=== PATIENT | female | born 1950 | race Caucasian/White ===

== ENCOUNTER 2016-12-10 22:17 | Inpatient (IN) | payer MEDICARE, OTHER ==
[~2016-12-10] VITALS: Ht 152.4 cm; Wt 63.9 kg
[2016-12-10] MEDS: SERTRALINE 100 MG TAB PO SCH (21:00)
[~2016-12-10 22:17] MED LIST: ASPI81TA85 PO; CALTCHW5 PO; CARV25TA PO; FISH100049 PO; HYDR12.55 PO; METF1000 PO; MOBI7.5T10 PO; PRIL20CA9 PO; SERT-138 PO; SIMV20TA2 PO; SIMVASTATIN 20 MG TAB PO SCH; SUCR1SS PO; VITA2000 PO; VITA500T53 PO
[2016-12-10] MEDS ORDERED: PANT40TA2 PO (22:49)
[2016-12-10 23:46] LABS: DIFF SLIDE NUMBER 362; MEAN CORPUSCULAR HEMOGLOBIN 28.7 pg (27.0-33.0); MEAN CORPUSCULAR HGB CONC 31.1 g/dl (32.0-36.5); MEAN CORPUSCULAR VOLUME 92.5 fl (80.0-96.0); RED CELL DISTRIBUTION WIDTH 14.8 % (11.5-14.5); WHITE BLOOD COUNT 1.4 K/mm3 (4.0-10.0)
[2016-12-11] VITALS (24 sets, daily range): BP systolic 77–109; BP diastolic 52–72
[2016-12-11 00:11] LABS: PLATELET COUNT, AUTOMATED 74 k/mm3 (150-450)
[2016-12-11 00:17] LABS: ALBUMIN 2.6 GM/DL (3.2-5.2); ALBUMIN/GLOBULIN RATIO 0.87 (1.00-1.93); BILIRUBIN,DIRECT 1.3 MG/DL (0.0-0.2); CREATININE FOR GFR 1.92 MG/DL (0.55-1.02); GLOMERULAR FILTRATION RATE 27.7 (>45); POTASSIUM SERUM 4.3 MEQ/L (3.5-5.1); THYROXINE (T4) 5.9 UG/DL (4.5-12.0); TOTAL PROTEIN 5.6 GM/DL (6.4-8.2)
[2016-12-11 00:23] LABS: BANDS 3 % (< 11); NUCLEATED RED BLOOD CELL 3 % (0-0)
[2016-12-11] MEDS ORDERED: NS 1,000 ML IV ONE (00:30)
[2016-12-11] MEDS ORDERED: VANCOMYCIN HCL 1,000 MG, VIAL MATE ADAPTER 1 EACH in D5W 250 ML IV ONE (00:45)
[2016-12-11] MEDS ORDERED: IMIPENEM/CILASTATIN 500 MG in D5W MINI-BAG PLUS 100 ML IV ONE (00:45)
--- NOTE | 2016-12-11 01:30 | REPUSA ---
CLINICAL HISTORY: Abdominal pain. TECHNIQUE: Multiple axial, sagittal and coronal CT images were obtained through the abdomen and pelvi s without administration of oral or IV contrast material. COMMENTS: Diffuse irregularity of the hepatic contour without mass or defect. There is no intra or extrahepatic biliary ductal dilatation. The spleen is normal. The gallbladder is surgically absent. The pancreas is of normal contour and attenuation characteristics. There is no evidence of adrenal mass. Left nephrolithiasis. The largest stone measures 6 mm. Calcified hepatic granulomas in the right hepatic lobe. 7.7x5.3 mm obstructing calculus of the left ureter at L4/L5 level. Moderate left hydroureteronephrosi s. Surgical changes of the stomach. There is no evidence for appendicitis. There is no bowel wall thickening. No evidence for small or la rge bowel obstruction. There is no evidence of abdominal ascites or lymphadenopathy. There is no evidence of intrinsic or extrinsic bladder mass. There is no pelvic ascites or lymphadeno jaun. Fluid-filled bowels. Uncomplicated colonic diverticulosis. Images of the lung bases show no evidence of pleural or parenchymal mass. There are no pleural effusi ons. Bilateral basilar atelectatic pulmonary changes. The bony structures are free of lytic or blastic lesions. Multilevel degenerative changes are seen in volving the thoracolumbar spine. Scattered calcifications are seen involving the aorta and major branches compatible with atherosclero sis. Fat containing umbilical hernia without incarceration. IMPRESSION: Left nephrolithiasis. Obstructing stone of the left ureter at L4/L5 level. Moderate left hydroureteronephrosis. Fat containing umbilical hernia without incarceration. Uncomplicated clonic diverticulosis. Prior cholecystectomy. Fluid-filled bowels. Findings are suggestive of ileus/enteritis. Thank you for your kind referral of this patient.
[2016-12-11] MEDS ORDERED: KETOROLAC 30 MG/ML VIAL (J1885) IV ONE (01:45)
[2016-12-11] MEDS ORDERED: NS 1,000 ML IV SCH ×3 (02:00→06:30)
[2016-12-11] MEDS ORDERED: POTA10CA PO (02:20)
[2016-12-11] MEDS ORDERED: BACITAB3 PO (02:20)
[2016-12-11] MEDS ORDERED: ASPI81TAEC PO (02:20)
[2016-12-11] MEDS ORDERED: CARV12.5 PO (02:20)
[2016-12-11] MEDS ORDERED: GAVICHW5 PO (02:20)
[2016-12-11] MEDS ORDERED: MAGN400T2 PO (02:20)
[2016-12-11] MEDS ORDERED: ACETAMINOPHEN TAB 650MG DOSE (2X325MG) PO PRN (02:30)
[2016-12-11] MEDS ORDERED: SODIUM CHLORIDE 0.9% 1000 ML IV ONE ×3 (03:30→08:15)
[2016-12-11] MEDS ORDERED: NOREPINEPHRINE BITARTRATE 16 MG in D5W 500 ML IV SCH ×2 (03:30→21:00)
[2016-12-11] MEDS ORDERED: NOREPINEPHRINE 4 MG/4 ML AMP As Ordered ONE ×2 (03:41→11:46)
[2016-12-11] MEDS ORDERED: PERCOCET 5MG/325MG TAB PO PRN (04:00)
[2016-12-11] MEDS ORDERED: ONDANSETRON 4MG/2ML VIAL (J2405) IV PRN ×2 (04:00→10:30)
[2016-12-11] MEDS: NOREPINEPHRINE BITARTRATE 8 MG in D5W 500 ML IV SCH ×3 (04:10→04:23)
[2016-12-11] MEDS: VASOPRESSIN INJ 20 UNITS in NS 500 ML IV SCH ×2 (05:14→05:45)
--- NOTE | 2016-12-11 05:14 | PHACANCOPD ---
PHARMACY VANCOMYCIN DOSING Pt Demographics Demographics Patient Age:66 , Weight: , Gender: female Adjusted Body Weight Date: 12/11/16, Adjusted Body Weight: [52] Kg Events Past 24 Hours Events Past 24 Hours: NO: Change in CrCl, Dialysis, Diuretic Therapy, Elevation in WBC, Fever, Other, Pending Diagnostics, Pending Procedures Vancomycin Vancomycin Target Ranges: 15-20 mcg/ml Vancomycin Load Y/N: No Load Dose Date Time Vancomycin Load Dose: Date: Time: Vancomycin Dose Date: 12/11/16. Current Vancomycin Dose: [1000MG Q24H] Intermittent Dosing?: No Labs Labs Item Value Date Time White Blood Count 1.4 K/mm3 L 12/10/162326 Creatinine 1.92 MG/DL H 12/10/16 232 Vital Signs Label Value Date Time Patient Temperature 100.6 degrees F 12/11/16 0030 Micro Microbiology 12/10/16 Urine Culture, Received Pending Creatinine Clearance Date:12/11/16. Creatinine Clearance: [22]. Pending Labs Trough 03 @0500 Assessment and Plan Maintaining Current Dose?: Yes Reason for dose change: No Dose Change Pharmacist Note Pharmacist Note Date: 12/11/16. Pharmacist note:Dosed at 1000mg q24h with a trough scheduled for 0319 @0500. Will continue to monitor and make adjustments as needed. [facility] Dec 11, 2016 05:14
--- NOTE | 2016-12-11 05:49 | HPEPDOC ---
General Date of Admission Dec 11, 2016 at 02:10 Primary Care Physician: Jailene Arshad Attending Physician: MIRA BERG MD Chief Complaint The patient is a 66-year-old female admitted with a reason for visit of Acute Unilateral Obstructive Uropathy, Calculus Of. Source: Patient, RN notes reviewed, Old records Exam Limitations: No limitations Timing/Duration: 24 hours (started 12/10/2016) Severity: Severe Associated Symptoms: Fever, Chills, Loss of appetite, Nausea, Vomiting History of Present Illness Ms. Kent is a 66-year-old female who presents to [facility]'s emergency Department with left-sided abdominal pain. She is accompanied in the emergency department by her . Past medical history significant for hypertension, gastroesophageal reflux disease, anxiety for/depression, dyslipidemia, history of gastric adenocarcinoma , diverticulosis, history of hiatal hernia, esophagitis, nonbleeding internal hemorrhoids, anemia, history of recurrent Clostridium difficile infections, colonic polyps, history of nephrolithiasis. Patient states that the pain started morning after she woke up. She describes the pain as dull, achy, and constant. She states the pain is on the left side of her abdomen and it goes straight to her back. Patient remained in bed most all day and the pain subsided some. She got back out of bed and the pain returned. She states that over the last couple days fluid intake has been decreased as well as her food intake. She states that she is nauseous, has been vomiting which is nonbloody, and has had 2 episodes of diarrhea since this started. States the diarrhea is nonbloody, nonmucoid, and started out loose , but has proceeded to watery diarrhea. She states that she would alternate between feeling hot and diaphoretic and then proceed to teeth rattling chills. She has noticed some nasal drainage and some neck pain (although she notes that this is not new). Patient denies acute changes to vision and her hearing (including blurry vision , diplopia, acute transient vision loss, tinnitus, acute hearing loss), headache , postnasal drainage, sinus pain or pressure, chest pain, shortness of breath, paroxysmal nocturnal dyspnea, joint pain, muscle pain, numbness and/or tingling , swelling, changes to her urinary habits (urinary frequency, urinary urgency, dysuria, hematuria), melena, hematochezia, skin rashes and/or lesions, skin color changes. Hospitalist service was consulted and patient was subsequently admitted for further medical management. Home Medications Scheduled Aspirin (Aspirin EC) 81 Mg Tabec 81 MG PO QHS (Reported) Carvedilol (Carvedilol) 12.5 Mg Tab 12.5 MG PO BID (Reported) Cholecalciferol (Vitamin D3) 2,000 Unit Cap 2,000 UNIT PO DAILY (Reported) Lactobacillus Acidophilus (Bacid) 1 Tab Tab 1 TAB PO DAILY (Reported) Magnesium Oxide (Magnesium Oxide) 400 Mg Tab 400 MG PO BID (Reported) Pantoprazole Sodium (Pantoprazole Sodium) 40 Mg Tab 40 MG PO DAILY (Reported) Potassium Chloride (Klor-Con M10) 10 Meq Tabcr 20 MEQ PO BID (Reported) Sertraline HCl (Sertraline HCl) 100 Mg Tab 100 MG PO QHS (Reported) Simvastatin (Simvastatin) 20 Mg Tab 20 MG PO QHS (Reported) Scheduled PRN (Gaviscon Extra Strength 160-105 mg) 1 Chw Chw 2 CHW PO QID PRN PRN HEARTBURN/ INDIGESTION (Reported) Allergies Coded Allergies: Penicillins (Unverified Allergy, Unknown, 12/11/16) Past Medical History Medical History 1. Hypertension 2. Dyslipidemia 3. Gastroesophageal reflux disease 4. Anxiety / depression 5. History of gastric adenocarcinoma 6. Esophagitis 7. Anemia 8. Diverticulosis 9. History of a hiatal hernia 10. History of Clostridium difficile infection 11. Colonic polyps 12. History of nephrolithiasis 13. Nonbleeding internal hemorrhoids Surgical History 1. History of colonoscopies 2. History of upper endoscopies 3. Cholecystectomy 4. Major surgery to her left kidney 5. Gastric surgery 6. Repositioning of her esophagus 7. Right lower extremity fracture repair Family History Significant Family History: Cancer (Sr., breast cancer), Diabetes (mother, brother), Vascular disease (mother, stroke), Other (father, alive, alcoholism) Social History * Smoker: Denies Alcohol: rarely Drugs: denies Recent Travel/Sick Contacts: Denies: Recent travel (remote domestic and international travel) Psychosocial History: Anxiety, Depression Lives independently with Adult daughter lives nearby [place] lives in [place], [place] Denies environmental exposures Review of Symptoms Constitutional: Reports: Chills, Fever, Night Sweats Eyes: Reports: Other (denies acute changes to vision, including blurriness, diplopia, acute transient vision loss) ENT: Denies: Epistaxis, Head Aches, Post Nasal Drip, Sinus Congestion, Sore Throat Skin: Reports: Nail Changes, Denies: Jaundice, Lesions, Rash Pulmonary: Denies: Cough, Dyspnea, Pleuritic Chest Pain Cardiovascular: Denies: Chest Pain, Edema, Orthopnea, Palpitations, Paroxysmal Noc. Dyspnea Gastrointestinal: Reports: Abdominal Pain (left-sided), Diarrhea (2 episodes, nonbloody, nonmucoid, watery), Nausea, Vomiting (nonbloody), Denies: Constipation, Hematochezia, Melena Genitourinary: Denies: Dysuria, Frequency, Hematuria, Incontinence Hematologic: Denies: Bruising, Petecchia, Purpura Musculoskeletal: Reports: Back Pain (acute and associated with left abdominal pain), Neck Pain (chronic), Denies: Joint Pain, Muscle Pain Neurological: Denies: Numbness Psych: Reports: Anxiety, Depression Physical Examination General Exam: Positive: Alert, Cooperative Eye Exam: Positive: Conjunctiva & lids normal, EOMI, PERRLA, Negative: Sclera icteric ENT Exam: Positive: Atraumatic, Nares Patent, Pharynx Normal, Tongue Midline, Negative: Mucous membr. moist/pink (lips and mucous membranes are dry), Pharyngeal Edema Neck Exam: Positive: Other (trachea is midline), Supple, Negative: JVD, Lymphadenopathy, thyromegaly Chest Exam: Positive: Clear to auscultation, Normal air movement Heart Exam: Positive: Normal S1, Normal S2, Rate Normal, Regular Rhythm Abdomen Exam: Positive: BS Hypoactive, Soft, Tenderness (patient states that abdomen is tender to palpation), Negative: Hepatospenomegaly, Mass Extremity Exam: Positive: Normal pulses (bilateral posterior tibial pulses appreciated, +2/4; dorsalis pedis pulses not appreciated), Negative: Clubbing, Cyanosis, Edema, Swelling, Tenderness Skin Exam: Positive: Other skin issue (skin is dry), Negative: Lesion, Rash Neuro Exam: Positive: Cranial Nerves 3-12 NL, Normal Speech, Strength at 5/5 X4 ext Psych Exam: Positive: Oriented x 3 Vital Signs T 100.9 HR 101 RR 18 BP 101/50 O2 94% on RA Height (in): 60 Weight (kg): 60.781 BMI (kg): 26.2 Laboratory Data Labs 24H Laboratory Tests 2 12/10/16 23:27: Aspartate Amino Transf (AST/SGOT) 216H, Alanine Aminotransferase (ALT/SGPT) 92H , Alkaline Phosphatase 204H, Total Bilirubin 2.0H, Direct Bilirubin 1.3H, Albumin 2.6L, Albumin/Globulin Ratio 0.87L, Amylase Level 54, Anion Gap 12, Atypical Lymphocytes 1, Band Neutrophils 3, Calcium Level 8.0L, Free Thyroxine Index 2.1, Glomerular Filtration Rate 27.7L, Lactic Acid (Sepsis) 4.1*H, Lipase 97, Lymphocytes (Manual) 16, Metamyelocytes 1H, Monocytes (Manual) 1, Neutrophils 78H, Nucleated Red Blood Cells 3H, Platelet Estimate DECREASED, Thyroid Stimulating Hormone (TSH) 2.060, Thyroxine (T4) 5.9, Total Protein 5.6L , Triiodothyronine (T3) Uptake 36 CBC/BMP Laboratory Tests 12/10/16 23:27 Red Blood Count 3.74 L, Mean Corpuscular Volume 92.5, Mean Corpuscular Hemoglobin 28.7, Mean Corpuscular Hemoglobin Concent 31.1 L, Red Cell Distribution Width 14.8 H Microbiology Microbiology 12/10/16 Urine Culture, Received Pending RAD Interpretation STUDY: Rad Actions: Report Reviewed (CT of the abdomen and pelvis: Left nephrolithiasis, obstructing stone in the left ureter at L4-L5, moderate left hydroureteronephrosis, fat-containing umbilical hernia without incarceration, diverticulosis, prior cholecystectomy, ileus/enteritis) Assessment/Plan This is a 66-year-old female who presents with left-sided abdominal pain and associated nausea and vomiting with diarrhea found to be septic likely secondary to her obstructing ureteral stone and possible ileus and/or enteritis. Problems (1) Septic shock Status: Acute Problem Text: Blood pressure at time of evaluation was 101/50 During evaluation blood pressure dropped to 68/49 Administered intravenous fluids without apparent increase in blood pressure Ordered Levophed, vasopressin CVP checked at bedside was 16 - Patient adequately fluid resuscitated - Discontinue fluids Maintain MAP > 60 Blood cultures Urinalysis and culture Vital signs every hour Empirically treat with vancomycin and meropenem Temperature is 100.9 - Ordered Tylenol White count 1.4 - Monitor with daily CBC May catheter (2) Acute unilateral obstructive uropathy Status: Acute Problem Text: CT of the abdomen and pelvis without contrast: Left nephrolithiasis. Obstructing stone at the left ureter at L4-L5 level (1.7 x 5.3 mm). Moderate left hydroureter nephrosis. Fat-containing umbilical hernia without incarceration. Uncomplicated colonic diverticulosis. Prior cholecystectomy. Fluid-filled bowels. Findings are suggestive of ileus for/ enteritis. BUN and creatinine are 20 and 1.92, respectively Nothing by mouth Consult urology Tylenol for pain (3) Transaminitis Status: Acute Problem Text: CT of the abdomen and pelvis without contrast: Diffuse irregularity of the hepatic contour without mass or defect. There is no intra- or extrahepatic biliary duct dilatation. AST and ALT of 216 and 92, respectively Alkaline phosphatase 204 Total bilirubin is 2.0 Direct bilirubin is 1.3 Obtain hepatitis panel Obtain PT/INR, FDP, PTT, fibrinogen Question possible DIC (4) Thrombocytopenia Status: Acute Problem Text: Platelets time of presentation 74,000 Ordered FDP, PTT, PT/INR, fibrinogen Question possible DIC (5) Lactic acidosis Status: Acute Problem Text: Lactic acid at time of presentation is 4.1 Cycle lactic acid in 6 hours Plan / VTE VTE Prophylaxis Ordered?: Yes (TEDs and sequentials) Plan / Urinary Catheter Urinary Catheter: Place May Reason for insertion/continuin: Critical Pt monitoring Plan Plan Septic shock At time of evaluation patient's blood pressure was 101/50. She had received intravenous fluids at 250 mls per hour. During evaluation, patient's blood pressure went as low as 68/49. Intravenous fluid bolus of a liter was initiated , but patient's pressure did not improve. Patient remained responsive throughout. Levophed was initiated and is currently ordered at 10 mcg/m. Vasopressin is also ordered at 0.04 units per minute. Her CVP was checked at bedside and was 16. This indicates adequate fluid resuscitation. We'll maintain the Levophed and vasopressin to achieve a MAP > 60. Empiric vancomycin and meropenem have been initiated. At time of presentation patient's temperature was 100.9. Tylenol for fever has been ordered. Lactic acid at time of presentation was 4.1. An updated level will be available within 6 hours. Vital signs to be obtained every hour. Blood cultures as well as urinalysis and culture will be obtained. May catheter placed for critical monitoring. Lactic acidosis Patient's lactic acid at presentation is 4.1. We'll cycle a new level within 6 hours. Likely secondary to patient's underlying obstructing ureteral stone. Acute renal failure Patient's BUN and creatinine are 20 and 1.92, respectively. CT of the abdomen and pelvis without contrast to show left nephrolithiasis with a 7.7 x 5.3 mm obstructing stone in the left ureter at L4-L5 level. The image also shows moderate left hydroureteronephrosis. Could possibly be an explanation for patient's septic shock. Patient is currently nothing by mouth. Urology has been consulted. Monitor with CMP. Pancytopenia WBC is 1.4, hemoglobin 10.7, hematocrit 34.6, platelets 74. Possibly be related to underlying obstructing ureteral stone as well as some underlying hepatic pathology. Will monitor with daily CBCs. Obtain PT/INR, PTT, fibrinogen, FDP. Question possible disseminated intravascular coagulation. Transaminitis AST and ALT at 216 and 92, respectively. Alkaline phosphatase 204. Total bilirubin 2. Direct bilirubin 1.3. CT of the abdomen and pelvis without contrast did show diffuse irregularity of the hepatic contour without mass or defect with no intra-or extrahepatic biliary duct dilatation. Question underlying hepatic pathology. Per patient, there is a questionable history of hepatitis when she was 6 years old. We'll obtain hepatitis panel and PT/INR. Monitor with CMP. Possible ileus/enteritis CT of the abdomen and pelvis did report fluid-filled bowels with these findings suggestive of ileus/enteritis. Patient has been placed on empiric meropenem and vancomycin. She remains nothing by mouth. Abdomen is soft and nondistended although tender to palpation, especially along the left quadrant. Disposition Admit to ICU Anticipated hospitalization: 2 nights Attending: Dr. James Consult: Urology Contact information: -Carlos Kent IVF: Initiate Diet: Make NPO Activity: Bedrest Diagnostics: Check Labs, Repeat Labs in AM, Obtain Cultures Anticipated Discharge: Home LINDSEY GOLDSTEIN Dec 11, 2016 04:22 LINDSEY GOLDSTEIN Dec 11, 2016 04:22
[2016-12-11] MEDS ORDERED: VANCOMYCIN HCL 1,000 MG, VIAL MATE ADAPTER 1 EACH in D5W 250 ML IV SCH (06:00)
[2016-12-11 06:04] LABS: ABG BASE EXCESS -9.3 (-2.0-2.0); ABG HCO3 15.1 MEQ/L (22.0-26.0); ABG PARTIAL PRESSURE O2 89.9 mmHg (75.0-100.0); ABG STANDARD HCO3 16.9 MEQ/L (22.0-26.0); ABG pH (ARTERIAL) 7.351 UNITS (7.350-7.450)
[2016-12-11 06:08] LABS: VENOUS BASE EXCESS -10.9 (-2.0-2.0); VENOUS O2 SATURATION 95.9 % (60.0-80.0); VENOUS PARTIAL PRESSURE CO2 30.2 mmHg (38.0-50.0); VENOUS PARTIAL PRESSURE O2 89.7 mmHg (30.0-50.0); VENOUS STANDARD HCO3 15.7 MEQ/L; VENOUS TOTAL CO2 15.4 MEQ/L (24.0-28.0)
[2016-12-11 06:13] LABS: DIFF SLIDE NUMBER 92; MEAN CORPUSCULAR VOLUME 93.5 fl (80.0-96.0); RED CELL DISTRIBUTION WIDTH 15.3 % (11.5-14.5); WHITE BLOOD COUNT 5.7 K/mm3 (4.0-10.0)
[2016-12-11 06:17] LABS: INR 2.06
[2016-12-11 06:25] LABS: ALBUMIN 1.9 GM/DL (3.2-5.2); ALBUMIN/GLOBULIN RATIO 0.79 (1.00-1.93); ALKALINE PHOSPHATASE 161 U/L (45-117); ALT/SGPT 200 U/L (12-78); ANION GAP 15 MEQ/L (8-16); AST/SGOT 484 U/L (15-37); BILIRUBIN,TOTAL 2.1 MG/DL (0.2-1.0); BLOOD UREA NITROGEN 21 MG/DL (7-18); CALCIUM LEVEL 6.4 MG/DL (8.8-10.2); CARBON DIOXIDE LEVEL 16 MEQ/L (21-32); CHLORIDE LEVEL 114 MEQ/L (98-107); CREATININE FOR GFR 2.02 MG/DL (0.55-1.02); GLOMERULAR FILTRATION RATE 26.2 (>45); GLUCOSE, FASTING 113 MG/DL (80-110); SODIUM LEVEL 145 MEQ/L (136-145); TOTAL PROTEIN 4.3 GM/DL (6.4-8.2)
[2016-12-11 06:31] LABS: PLATELET COUNT, AUTOMATED 87 k/mm3 (150-450)
[2016-12-11 06:43] LABS: BANDS 5 % (< 11); BASOPHILS 1 % (0-4)
[2016-12-11 06:45] LABS: ANISOCYTOSIS 1+; HYPOCHROMASIA 1+; NUCLEATED RED BLOOD CELL 1 % (0-0); TOXIC VACUOLATION 1+
[2016-12-11] MEDS ORDERED: CALCIUM GLUCONATE 1,000 MG in D5W MINI-BAG PLUS 100 ML IV ONE (06:45)
[2016-12-11 06:49] LABS: MICROSCOPIC INDICATED? MAN YES (NO)
[2016-12-11 06:56] LABS: WBC, URINE 30-40 /hpf (0-3)
[2016-12-11 06:57] LABS: SQUAMOUS EPITHELIAL CELL URINE SMALL AMOUNT /hpf (SMALL AMT); TRANSITIONAL EPI CELLS, URINE MOD AMOUNT /hpf
[2016-12-11 06:58] LABS: BACTERIA, URINE LARGE AMOUNT; HYALINE CAST, URINE NONE SEEN /lpf (0-1)
[2016-12-11 07:00] LABS: MICROSCOPIC EXAM PERFORMED
[2016-12-11 07:26] LABS: REASON FOR REVIEW LEUKEMIA / BLASTS
--- NOTE | 2016-12-11 07:46 | REP ---
Portable chest for line placement: Single AP supine view of the chest performed. Supine position precludes evaluation for pneumothorax and pleural fluid. Comparison is 10/29/2011. There is a right IJ central venous catheter with the tip at the confluence of the superior vena cava and right atrium, as an interval change. There is focal atelectasis in the right parahilar zone. No large pleural fluid collection or gross pneumothorax are identified. Left lung is clear. Cardiac size is normal. Signed by Darryl Patel MD 12/11/2016 07:37 A
[2016-12-11] MEDS: MEROPENEM INJ 500 MG in D5W MINI-BAG PLUS 100 ML IV SCH ×2 (08:00→20:28)
[2016-12-11] MEDS ORDERED: CONRAY-60 60% 50ML VIAL (Q9961) As Ordered ONE (08:36)
[2016-12-11] MEDS ORDERED: MIDAZOLAM INJ 2 MG/2 ML VIAL (J2250) As Ordered ONE (08:44)
[2016-12-11] MEDS ORDERED: PROPOFOL 200 MG/20 ML VIAL As Ordered ONE (08:44)
[2016-12-11] MEDS ORDERED: LIDOCAINE 2% INJ 100 MG/5 ML SDV (FOR ANES.) As Ordered ONE (08:44)
[2016-12-11] MEDS ORDERED: fentaNYL 100 MCG/2 ML INJECTION (J3010) As Ordered ONE (08:44)
[2016-12-11] MEDS ORDERED: ONDANSETRON 4MG/2ML VIAL (J2405) As Ordered ONE (08:44)
[2016-12-11] MEDS: LACTOBACILLUS ACIDOPHILUS CAP (BACID) PO SCH (09:00)
[2016-12-11] MEDS ORDERED: KETAMINE HCL 200 MG/20 ML VIAL As Ordered ONE (09:07)
--- NOTE | 2016-12-11 10:07 | REP ---
RETROGRADE PYELOGRAM: Three views. HISTORY: Stones. FINDINGS: A sequence of three fluoroscopically obtained intraprocedural last image hold spot radiographs of the left abdomen document left ureteral cannulation, contrast injection, and double pigtail stenting. There is evidence of a left hydronephrosis and a proximal ureteral obstruction. Signed by Alan Lopez MD 12/11/2016 01:58 P
[2016-12-11] MEDS ORDERED: LR 1,000 ML IV SCH (10:30)
[2016-12-11] MEDS ORDERED: fentaNYL 100 MCG/2 ML INJECTION (J3010) IV PRN (10:30)
[2016-12-11] MEDS ORDERED: METOCLOPRAMIDE INJ 10MG/2ML VIAL (J2765) IV PRN (10:30)
[2016-12-11] MEDS ORDERED: NOREPINEPHRINE BITARTRATE 8 MG in D5W 500 ML IV SCH ×2 (10:30→12:00)
[2016-12-11 11:12] LABS: MEAN CORPUSCULAR HEMOGLOBIN 29.3 pg (27.0-33.0); MEAN CORPUSCULAR HGB CONC 30.1 g/dl (32.0-36.5); MEAN CORPUSCULAR VOLUME 97.2 fl (80.0-96.0); WHITE BLOOD COUNT 15.2 K/mm3 (4.0-10.0)
[2016-12-11] MEDS ORDERED: VASOPRESSIN INJ 20 UNITS in NS 500 ML IV SCH (11:30)
[2016-12-11 11:32] LABS: CALCIUM LEVEL 6.4 MG/DL (8.8-10.2); CREATININE FOR GFR 2.17 MG/DL (0.55-1.02); GLOMERULAR FILTRATION RATE 24.1 (>45); POTASSIUM SERUM 4.9 MEQ/L (3.5-5.1)
[2016-12-11] MEDS ORDERED: ALBUTEROL SULFATE 2.5 MG/0.5 ML INH NEB SOLN As Ordered ONE (15:03)
[2016-12-11] MEDS: PANTOPRAZOLE 40MG INJ (PROTONIX) (C9113) IV SCH (17:29)
[2016-12-11] MEDS: ALBUTEROL SULFATE 2.5 MG/0.5 ML INH NEB SOLN NEB PRN (17:33)
[2016-12-11] MEDS ORDERED: FUROSEMIDE 20 MG/2 ML VIAL (J1940) IV ONE (18:00)
--- NOTE | 2016-12-11 18:42 | ECGEPIP ---
Stationary ECG Study 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
[2016-12-11] MEDS ORDERED: ALBUTEROL SULFATE 2.5 MG/0.5 ML INH NEB SOLN NEB SCH (20:00)
[2016-12-11] MEDS: SERTRALINE 100 MG TAB PO SCH (20:28)
[2016-12-11] MEDS: NOREPINEPHRINE BITARTRATE 16 MG in D5W 500 ML IV SCH (20:45)
[2016-12-12] VITALS (30 sets, daily range): BP systolic 82–130; BP diastolic 55–77
[2016-12-12] MEDS ORDERED: NOREPINEPHRINE BITARTRATE 8 MG in D5W 500 ML IV SCH ×2
[2016-12-12] MEDS: VANCOMYCIN HCL 1,000 MG, VIAL MATE ADAPTER 1 EACH in D5W 250 ML IV SCH (05:31)
[2016-12-12 06:01] LABS: DIFF SLIDE NUMBER 58; MEAN CORPUSCULAR HEMOGLOBIN 28.1 pg (27.0-33.0); MEAN CORPUSCULAR HGB CONC 30.4 g/dl (32.0-36.5); MEAN CORPUSCULAR VOLUME 92.3 fl (80.0-96.0); RED CELL DISTRIBUTION WIDTH 15.4 % (11.5-14.5); WHITE BLOOD COUNT 26.5 K/mm3 (4.0-10.0)
[2016-12-12 06:10] LABS: PLATELET COUNT, AUTOMATED 83 k/mm3 (150-450)
[2016-12-12 06:11] LABS: INR 1.76
--- NOTE | 2016-12-12 06:33 | CCN ---
DATE: 12/11/2016 I was called to evaluate this 66-year-old female for severe sepsis with shock. Ill for 2-3 days with nausea, vomiting and back pain, she presented to the emergency department was found profoundly hypotensive, started on pressor therapy and imaging identified nephrolithiasis. There is a significant past medical history of gastric carcinoma, acid reflux disease and hypertension. Her current temperature is 98, pulse rate 92, respirations 29, blood pressure was 77/52 on two pressors, vasopressin and Levophed. HEENT: Oral and nasal mucosa are pink. Her neck is supple. No meningismus. Jugular veins are flat. Carotid upstroke brisk. Heart: Sounds are regular appreciable murmur. Breath sounds diminished in the right base. There is subtle crepitant rales appreciated. Chest is symmetric. There is no accessory muscle engagement. Abdomen is soft. Tender in the left upper quadrant. No mass organomegaly. Extremities: Show trace edema if any. DIAGNOSTIC STUDIES: Sodium is 145, potassium 4.9, chloride 117, CO2 18, BUN 27, creatinine 2.17, glucose 155. White cell count is 1.4, hemoglobin 10.7, hematocrit 34.6, platelet count 74,000. Differential white cell count shows 78% neutrophils, 3 bands, and metamyelocytes. PT is 23, PTT is 60, INR of 2.06 and fibrinogen was 147. Imaging studies were reviewed and there is a large nephrolithiasis appreciated with apparent obstruction. The primary problem requiring critical attention is severe sepsis with shock on two pressors, would increase IV fluids and recheck CVP. Broad-spectrum antibiotics have been started. Serum lactate is elevated, recheck is pending. Urosepsis. Nephrology has been consulted. The patient will be taken to the operating room for drainage. DIC. Will recheck fibrinogen and PT/PTT. DVT prophylaxis. In light of thrombocytopenia, will be addressed with sequential hose. Ulcer prophylaxis will be addressed with Protonix. The patient's condition is critical. Prognosis is guarded. ICU admission is appropriate. 78 minutes spent in provision of bedside critical care coordination.
[2016-12-12 06:35] LABS: ALBUMIN 2.3 GM/DL (3.2-5.2); ALBUMIN/GLOBULIN RATIO 0.66 (1.00-1.93); BILIRUBIN,TOTAL 0.7 MG/DL (0.2-1.0); CALCIUM LEVEL 7.1 MG/DL (8.8-10.2); CREATININE FOR GFR 2.35 MG/DL (0.55-1.02); PHOSPHORUS LEVEL 5.8 MG/DL (2.5-4.9); POTASSIUM SERUM 4.4 MEQ/L (3.5-5.1); TOTAL PROTEIN 5.8 GM/DL (6.4-8.2)
--- NOTE | 2016-12-12 07:10 | REPUSA ---
CLINICAL HISTORY: Shortness of breath. COMMENTS: The cardiac silhouette is enlarged. There is evidence for pulmonary venous congestion compatible with CHF. There is no definite radiographic evidence for a lung mass or consolidation. Bony structures appear normal. Right internal jugular central catheter is in good position with its tip in the superior vena cava. Bandlike atelectasis in the right upper lobe. IMPRESSION: 1. Enlarged cardiac silhouette. 2. Pulmonary venous congestion compatible with CHF. Thank you for your kind referral of this patient.
[2016-12-12 07:21] LABS: BANDS 14 % (< 11)
[2016-12-12 07:25] LABS: DOHLE BODIES 2+; HYPOCHROMASIA 1+
[2016-12-12] MEDS: ALBUTEROL SULFATE 2.5 MG/0.5 ML INH NEB SOLN NEB PRN (08:03)
[2016-12-12] MEDS: LACTOBACILLUS ACIDOPHILUS CAP (BACID) PO SCH (08:24)
[2016-12-12] MEDS: MEROPENEM INJ 500 MG in D5W MINI-BAG PLUS 100 ML IV SCH ×2 (08:24→20:16)
[2016-12-12] MEDS: PANTOPRAZOLE 40MG INJ (PROTONIX) (C9113) IV SCH (08:24)
[2016-12-12 08:43] LABS: ABG BASE EXCESS -12.4 (-2.0-2.0); ABG HCO3 12.4 MEQ/L (22.0-26.0); ABG PARTIAL PRESSURE CO2 25.3 mmHg (35.0-45.0); ABG PARTIAL PRESSURE O2 163.7 mmHg (75.0-100.0); ABG STANDARD HCO3 14.7 MEQ/L (22.0-26.0); ABG TOTAL CO2 13.1 MEQ/L (23.0-31.0); ABG pH (ARTERIAL) 7.307 UNITS (7.350-7.450)
[2016-12-12] MEDS ORDERED: FUROSEMIDE 40 MG/4 ML VIAL (J1940) IV ONE (09:00)
--- NOTE | 2016-12-12 09:23 | IPNPDOC ---
Assessment/Plan Date Seen The patient was seen on 12/12/16. Problems (1) Septic shock Status: Acute (2) Acute unilateral obstructive uropathy Status: Acute (3) Transaminitis Status: Acute (4) Thrombocytopenia Status: Acute (5) Lactic acidosis Status: Acute Plan/VTE VTE Prophylaxis Ordered?: Yes (TEDs and sequentials) Plan/Urinary Catheter Urinary Catheter: Place May Reason for insertion/continuin: Critical Pt monitoring Plan IVF: Initiate Diet: Make NPO Activity: Bedrest Diagnostics: Check Labs, Repeat Labs in AM, Obtain Cultures Anticipated Discharge: Home Subjective Review oF Systems Chief Complaint The patient is a 66-year-old female admitted with a reason for visit of Acute Unilateral Obstructive Uropathy, Calculus of ureter s/p left JJ (12/11/16); LK stones (<6mm). Levophed 16ug. Asymptomatic. May clear. Comfortable. Levophed 16ug. 95, 32, 97.9f, 105/66. Abdo: Benign. May clear. IV Meropenem/Vancomycin. (12/12/16) Hg 10.3, wbc 26.5 (elevated), Cr 2.3 (stable ), lactate 3.0. Urine culture/blood culture (12/11/16) pending. CT w/o IV (12/11) LK <6mm stones; left ureter 8x5mm stone; left HUN. A: Above; ARF. P: Continue IV antibiotics. Taper Levophed. CBC, bmp noon. Review UC/BC. V/Q scan STAT if concern for PE. Objective Physical Examination Heart Exam: Positive: Normal S1, Normal S2, Rate Normal, Regular Rhythm Vital Signs/I&O Vital Signs Date Time Temp Pulse Resp B/P Pulse Ox O2 Delivery O2 Flow Rate FiO2 12/12/16 06:00 95 32 105/66 97 Nasal Cannula 2.0 12/12/16 04:00 97.9 I&O- Last 24 Hours up to 6 AM 12/12/16 06:00 Intake Total 2945.1 ml Output Total 2750 ml Balance 195.1 ml Laboratory Data Labs 24H Laboratory Tests 2 12/11/16 10:51: Anion Gap 10, Blood Urea Nitrogen 22H, Creatinine 2.17H, Sodium Level 145, Potassium Level 4.9#, Chloride Level 117H, Carbon Dioxide Level 18L, Calcium Level 6.4L, Glomerular Filtration Rate 24.1L, Lactic Acid Followup at 4 Hours 3.4*H 12/12/16 05:43: Anion Gap 12, Blood Urea Nitrogen 30H, Creatinine 2.35H, Sodium Level 141, Potassium Level 4.4, Chloride Level 112H, Carbon Dioxide Level 17L, Calcium Level 7.1L, Glomerular Filtration Rate 22.0L, Activated Partial Thromboplast Time 47.3H, Phosphorus Level 5.8H, Aspartate Amino Transf (AST/SGOT) 217H, Alanine Aminotransferase (ALT/SGPT) 160H, Lactate Dehydrogenase 257H, Total Creatine Kinase 208H, Alkaline Phosphatase 158H, Total Bilirubin 0.7#, Triglycerides Level 207H, Cholesterol Level 76, Total Protein 5.8#L, Albumin 2.3 #L, Albumin/Globulin Ratio 0.66L, Band Neutrophils 14H, Dohle Bodies 2+, Fibrinogen 325, Hypochromasia 1+, Lymphocytes (Manual) 7L, Metamyelocytes 2H, Monocytes (Manual) 3, Neutrophils 74, Platelet Estimate DECREASED, Prothromb Time International Ratio 1.76, Prothrombin Time 20.6H 12/12/16 08:07: Lactic Acid (Sepsis) 3.0*H 12/12/16 08:32: Arterial Blood pH 7.307L, Arterial Blood Partial Pressure CO2 25.3L, Arterial Blood Partial Pressure O2 163.7H, Arterial Blood Total CO2 13.1L, Arterial Blood HCO3 12.4L, Arterial Blood Base Excess -12.4L, Arterial Blood Oxygen Saturation 99.4H, Blood Gas Bicarbonate Standard 14.7L CBC/BMP Laboratory Tests 12/11/16 10:51 Calcium Level 6.4 L, Red Blood Count 3.02 L, Mean Corpuscular Volume 97.2 H, Mean Corpuscular Hemoglobin 29.3, Mean Corpuscular Hemoglobin Concent 30.1 L, Red Cell Distribution Width 15.0 H 12/12/16 05:43 Calcium Level 7.1 L, Red Blood Count 3.66 L, Mean Corpuscular Volume 92.3, Mean Corpuscular Hemoglobin 28.1, Mean Corpuscular Hemoglobin Concent 30.4 L, Red Cell Distribution Width 15.4 H, Phosphorus Level 5.8 H, Aspartate Amino Transf ( AST/SGOT) 217 H, Alanine Aminotransferase (ALT/SGPT) 160 H, Lactate Dehydrogenase 257 H, Total Creatine Kinase 208 H, Alkaline Phosphatase 158 H, Total Bilirubin 0.7 #, Triglycerides Level 207 H, Cholesterol Level 76, Total Protein 5.8 #L, Albumin 2.3 #L Microbiology Microbiology 12/11/16 Blood Culture - Preliminary, Resulted No growth after 24 hours . All specim... 12/11/16 Blood Culture - Preliminary, Resulted No growth after 24 hours . All specim... 12/11/16 Urine Culture, Received Pending 12/10/16 Urine Culture, Received Pending LAYTON SKY MD Dec 12, 2016 09:23
[2016-12-12] MEDS: NOREPINEPHRINE BITARTRATE 16 MG in D5W 500 ML IV SCH (10:23)
--- NOTE | 2016-12-12 12:29 | REP ---
Duplex extremity venous ultrasound: Bilateral lower extremity. History: Dyspnea. Findings: The deep veins are anechoic and fully compressible from the groin to the popliteal fossa in the right and left lower extremity. Color flow imaging is homogeneous. Spectral Doppler interrogation demonstrates intact respiratory variation in flow and normal manual augmentation of flow. There is no evidence of deep vein thrombosis. Impression: Negative bilateral lower extremity duplex venous ultrasound. No evidence of deep vein thrombosis. Signed by Alan Lopez MD 12/12/2016 12:20 P
[2016-12-12 12:41] LABS: CALCIUM LEVEL 7.5 MG/DL (8.8-10.2); CREATININE FOR GFR 2.44 MG/DL (0.55-1.02); POTASSIUM SERUM 4.2 MEQ/L (3.5-5.1)
[2016-12-12 12:43] LABS: DIFF SLIDE NUMBER 107; MEAN CORPUSCULAR HEMOGLOBIN 29.3 pg (27.0-33.0); MEAN CORPUSCULAR HGB CONC 31.4 g/dl (32.0-36.5); MEAN CORPUSCULAR VOLUME 93.4 fl (80.0-96.0); RED CELL DISTRIBUTION WIDTH 15.4 % (11.5-14.5); WHITE BLOOD COUNT 28.5 K/mm3 (4.0-10.0)
[2016-12-12 12:48] LABS: PLATELET COUNT, AUTOMATED 75 k/mm3 (150-450)
[2016-12-12 12:57] LABS: BANDS 7 % (< 11)
[2016-12-12 12:58] LABS: ANISOCYTOSIS 1+
--- NOTE | 2016-12-12 13:51 | ECGEPIP ---
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
--- NOTE | 2016-12-12 13:52 | IPN ---
DATE: 12/12/2016 66-year-old female seen at bedside. Her family is present as well. She is having complaint of some shortness of breath, which she did receive a dose of Lasix yesterday evening and has been able to make about 2 liters of fluid. She does have some auditory crackles. She is able speak in somewhat complete sentences, but I did notice that she has pursed lip breathing. She denies chest pain. No nausea, vomiting, no belly pain. OBJECTIVE: Temperature 97.7, pulse 97, respiratory rate 24, blood pressure 130/77, SpO2 is 99% on 2 liters. GENERAL: The patient appears to be in no acute distress. She is alert and oriented, pleasant talk to. Most recent CVP reading is 14. HEENT: Head is atraumatic, normocephalic. Eyes pupils equal, round, reactive to light and accommodation. Throat clear. NECK: Supple. She does have JVD. LUNGS: Diminished bibasilar breath sounds, occasional wheeze. HEART: Regular rate and rhythm. ABDOMEN: Soft. EXTREMITIES: No edema. LABORATORIES: White count is 26.5 up from 15.2, platelet 83, hemoglobin and hematocrit of 10.3 and 33.8, sodium 141, potassium 4.4, chloride 112, bicarb 17, anion gap 12, BUN 30, creatinine 2.35, glucose 136, lactic acid is 3, down from 3.4 yesterday evening, phosphorus 7.1, total bilirubin 5.8, AST is 217, ALT 160, alkaline phosphatase 158. These are all showing some improvement from yesterday. CK is 208, albumin is 2.3. PT is 20.6, INR 1.76, PTT 47.3. Fibrinogen is 325. Repeat urinalysis pending at this time as well as urine creatinine, urine sodium. We will plan on checking a fractionated sodium on her once those lab results are back. Cultures were negative. Ultrasound of the lower extremities is negative for DVT. Chest x-ray this morning does show elevated right hemidiaphragm, enlarged cardiac silhouette. Pulmonary venous congestion with venous cephalization was noted. ASSESSMENT/PLAN: 1. Sepsis related to obstructive uropathy with 9 mm stone on the right tract. She did have manipulation yesterday by cystoscopy and retro pyelogram by Dr. Galvze. She was continued on Levophed, vasopressin has been discontinued. CVP was 14. Appreciate Dr. Birmingham's input as well. 2. Hypoxia. ABG shows some mild metabolic acidosis. However I am concerned that she is volume overload with JVD. Will give her another dosage of Lasix. We did do an ABG as indicated above. It did not demonstrate AA gradient. Ultrasound of the lower extremities was negative for DVT. Will see how she does as the day progresses. Again, appreciate Dr. Birmingham's input. 3. Hypertension. Blood pressure medications are on hold. 4. Transaminitis with combined thrombocytopenia and fibrin split products. The patient is at risk for possible DIC. Again, appreciate assistance with critical care. 5. Lactic acidosis. Appears to show some mild improvement. Will continue to follow. Continue with the current treatment. 6. Leukocytosis with genitourinary manipulation and what appears to be sepsis from urinary tract infection secondary to obstructive uropathy. Will continue with broad-spectrum antibiotics with meropenem and vancomycin. 7. History of anxiety and depression with some insomnia last evening. Give her a dose of Benadryl 25 mg p.o. q.h.s. p.r.n. sleep. 8. Deep vein thrombosis (DVT) prophylaxis. The patient does have some thrombocytopenia with a combination of possible DIC or consumption coagulopathy. Will hold on any heparin products currently and continue with thromboembolic deterrent stockings (TEDS) and sequentials. DISPOSITION: The patient does continue to appear to be quite ill and her prognosis is guarded at this point. She clinically does appear to be showing some improvement today. I do suspect that some of her hypoxia may be due to volume overload. Will give her dose of Lasix and she see how she responds and continue to follow her intake and output closely as well. MTDD
[2016-12-12] MEDS: diphenhydrAMINE 25 MG CAP PO PRN (20:15)
[2016-12-12] MEDS: SERTRALINE 100 MG TAB PO SCH (20:15)
[2016-12-13] VITALS (29 sets, daily range): BP systolic 85–117; BP diastolic 53–70
[2016-12-13 05:07] LABS: DIFF SLIDE NUMBER 40; MEAN CORPUSCULAR HEMOGLOBIN 27.8 pg (27.0-33.0); MEAN CORPUSCULAR HGB CONC 31.2 g/dl (32.0-36.5); MEAN CORPUSCULAR VOLUME 89.2 fl (80.0-96.0); RED CELL DISTRIBUTION WIDTH 15.4 % (11.5-14.5); WHITE BLOOD COUNT 25.5 K/mm3 (4.0-10.0)
[2016-12-13 05:20] LABS: ALBUMIN 2.1 GM/DL (3.2-5.2); ALBUMIN/GLOBULIN RATIO 0.64 (1.00-1.93); BILIRUBIN,TOTAL 0.7 MG/DL (0.2-1.0); CALCIUM LEVEL 7.1 MG/DL (8.8-10.2); CREATININE FOR GFR 2.24 MG/DL (0.55-1.02); GLOMERULAR FILTRATION RATE 23.2 (>45); PHOSPHORUS LEVEL 5.4 MG/DL (2.5-4.9); POTASSIUM SERUM 3.7 MEQ/L (3.5-5.1); TOTAL PROTEIN 5.4 GM/DL (6.4-8.2)
--- NOTE | 2016-12-13 05:32 | PHACANCOPD ---
PHARMACY VANCOMYCIN DOSING Pt Demographics Demographics Patient Age:66 , Weight:67.100 , Gender: female Adjusted Body Weight Date: 12/11/16, Adjusted Body Weight: [52] Kg Events Past 24 Hours Events Past 24 Hours: YES: Change in CrCl, Elevation in WBC Vancomycin Vancomycin Target Ranges: 15-20 mcg/ml Vancomycin Load Y/N: No Load Dose Date Time Vancomycin Load Dose: Date: Time: Vancomycin Dose Date: 12/13/16. Current Vancomycin Dose: [1000MG Q24H] Intermittent Dosing?: No Labs Labs Item Value Date Time Vancomycin Level Trough 13.6 UG/ML 12/13/16 0442 Creatinine 2.44 MG/DL H 12/12/16 1213 White Blood Count 28.5 K/mm3 H 12/12/16 1213 Vital Signs Label Value Date Time Patient Temperature 98.8 degrees F 12/13/16 0400 Temperature Source Skin 12/13/16 0400 Micro Microbiology 12/11/16 Blood Culture - Preliminary, Resulted No growth after 24 hours . All specim... 12/11/16 Blood Culture - Preliminary, Resulted No growth after 24 hours . All specim... 12/11/16 Urine Culture, Received Pending 12/10/16 Urine Culture, Received Pending Creatinine Clearance Date:12/11/16. Creatinine Clearance: [22]. Pending Labs Trough 03-20 @0500 Assessment and Plan Maintaining Current Dose?: Yes Reason for dose change: No Dose Change Pharmacist Note Pharmacist Note Date: 12/11/16. Pharmacist note:Trough of 13.6 is slightly below target range. Plan to continue current dosing as her renal function seems to be trending down. Have ordered another trough for 03-20 @0500. Will continue to monitor and make adjustments as needed. [facility] Dec 13, 2016 05:32
[2016-12-13 05:34] LABS: PLATELET COUNT, AUTOMATED 55 k/mm3 (150-450)
[2016-12-13] MEDS: VANCOMYCIN HCL 1,000 MG, VIAL MATE ADAPTER 1 EACH in D5W 250 ML IV SCH (05:36)
[2016-12-13 06:03] LABS: BANDS 8 % (< 11)
--- NOTE | 2016-12-13 07:40 | REP ---
CT study of the chest without contrast: History: Leukocytosis, question pneumonia. Comparison study November 08, 2015. Findings: There are small bilateral pleural effusions. There is discoid and subsegmental atelectasis in the lower lobes bilaterally, the pleural effusions are new. The discoid atelectasis is more prominent than on the prior study. There is more prominent discoid atelectasis in the right upper lobe as well. There is a right internal jugular vein [id number]-Lafi catheter. No mediastinal mass or adenopathy is observed. Some vascular calcification is noted. Impression: Small bilateral effusions and bilateral areas of plate-like and segmental and subsegmental atelectasis in the lower lobes and right upper lobe more prominent than on the prior study. Signed by Alan Lopez MD 12/13/2016 08:42 A
--- NOTE | 2016-12-13 07:41 | REP ---
CT study of the abdomen pelvis without IV or oral contrast: History: Shortness of breath and abdominal pain. Comparison CT study is from December 11, 2016. Findings: Small bilateral pleural effusions are seen. There is atelectatic change in both lower lobes. There are clips in the gallbladder fossa post cholecystectomy. Diverticulosis of the left and right colon. A double pigtail left ureteral stent is noted in place. The previously noted left-sided hydronephrosis is resolved. The previously noted stone in the left ureter remains in place in the ureter adjacent to the stent at approximately the same level near the lower pole of the left kidney. A May catheter is seen in the otherwise empty urinary bladder. There is minimal free fluid in the pelvis reflections. No other significant finding. Impression: Left-sided hydronephrosis is resolved post double pigtail left ureteral stent placement. Left ureteral stone is again seen unchanged with stone at the level of the lower pole of the left kidney. There are several intrarenal calculi in the left kidney as well also unchanged. Left and right colonic diverticulosis. Small bilateral pleural effusions and a tiny amount of ascites seen. Signed by Alan Lopez MD 12/13/2016 08:42 A
[2016-12-13] MEDS ORDERED: LevoFLOXacin IV 250 MG in APPROPRIATE DILUENT 1 EA IV SCH (08:00)
[2016-12-13] MEDS: PANTOPRAZOLE 40MG INJ (PROTONIX) (C9113) IV SCH (08:18)
[2016-12-13] MEDS: LACTOBACILLUS ACIDOPHILUS CAP (BACID) PO SCH (08:18)
--- NOTE | 2016-12-13 08:23 | IPN ---
DATE: 12/13/2016 66-year-old female seen at bedside, resting more comfortably today. She does not appear to be as dyspneic She denies fevers, chills, rigors, cough, chest pain. No abdominal pain or back pain currently. OBJECTIVE: Temperature is 98.8. Pulse 84 and regular. Respiratory rate is 22. Blood pressure (BP) is 99/58 with a mean arterial pressure of 72. SpO2 is 97% on 2 liters. Intake and output over the last 24 hours: 1334/4325 with a negative fluid balance of 2990 mL. General: The patient appears to be in no acute distress. She is alert. She is pleasant. She does not appear to be distressed from her breathing. She is able speak in complete sentences. HEENT: Unremarkable. Lungs: Diminished bibasilar breath sounds, otherwise clear. Heart: Regular rate and rhythm. Abdomen: Soft. Extremities: No edema. No calf tenderness. LABORATORY DATA: White count is 25.5, hemoglobin is 10, platelets are 79,000. Sodium 143, potassium 3.7, chloride 109, bicarbonate 22, anion gap 12, BUN 35, creatinine is 2.24, down from 2.44, glucose is 101. Lactic acid is pending this morning. AST 83, alkaline phosphatase 164 and ALT is 106. Her transaminases appear to continue to improve. Albumin is 2.1. Urine culture results times two is positive for Klebsiella pneumoniae with multiple sensitivities. Will plan on de-escalating her antibiotic therapy today. ASSESSMENT AND PLAN: 1. Sepsis related to obstructive uropathy with 9 mm stone right genitourinary tract. Appreciate urology's assistance. She continues with a stent placement. Urology continues to follow. She is currently off of Levophed and vasopressin. Her central venous pressures (CVPs) have continued to be adequate. Her urine culture was positive for Klebsiella, pansensitive. Will de-escalate. Discontinue her meropenem and vancomycin and start on Levaquin, which will be renally dosed. Again appreciate Dr. Birmingham's input as well. 2. Obstructive uropathy. As outlined above, she has had manipulation of the genitourinary tract with stent placement, retrograde pyelogram as well. Appreciate urology's input. 3. Acute renal failure likely secondary to obstructive uropathy. Her creatinine does appear to be improved today. Will continue to follow. 4. Transaminitis with what appears to be consumption coagulopathy, possible disseminated intravascular coagulation (DIC). She does show some improvement today. Will continue to follow her how her transaminases trend. 5. Thrombocytopenia likely related to her consumption coagulopathy. This appears to be stable. Will avoid heparin products, and she continues on thromboembolic deterrents (TEDs) and sequentials for deep venous thrombosis (DVT) prophylaxis. 6. Lactic acidosis. Will repeat today. 8. Leukocytosis. As outlined above, will continue with supportive measures and de-escalate her antibiotics since we have a definitive bacterial urine culture. 9. Anxiety and depression with some difficulty sleeping. We did give her Benadryl 25 mg nightly as needed last night. This did help her sleep better. 10. Deep venous thrombosis prophylaxis. Continue TEDs and sequentials. DISPOSITION: Her prognosis does continue to be guarded at this point, but she does show some slight improvement. Again, her creatinine is improving. I would like to see how she does over the next 24-48 hours. Will try to avoid any further nephrotoxic drugs and if she has not shown any improvement in the next 24-48 hours, we may want to consider a nephrology consult.
--- NOTE | 2016-12-13 09:58 | IPNPDOC ---
Assessment/Plan Date Seen The patient was seen on 12/13/16. Problems (1) Septic shock Status: Acute (2) Acute unilateral obstructive uropathy Status: Acute (3) Transaminitis Status: Acute (4) Thrombocytopenia Status: Acute (5) Lactic acidosis Status: Acute Plan/VTE VTE Prophylaxis Ordered?: Yes (TEDs and sequentials) Plan/Urinary Catheter Urinary Catheter: Place May Reason for insertion/continuin: Critical Pt monitoring Plan IVF: Initiate Diet: Make NPO Activity: Bedrest Diagnostics: Check Labs, Repeat Labs in AM, Obtain Cultures Anticipated Discharge: Home Subjective Review oF Systems Chief Complaint The patient is a 66-year-old female admitted with a reason for visit of Acute Unilateral Obstructive Uropathy, Calculus of ureter s/p left JJ (12/11/16); LK stones (<6mm). Levophed discontinued. Asymptomatic. May clear. Diuresis. Incentive spirometry. Comfortable. 94, 24, 99.3f, 96/63. Abdo: Benign. May clear. IV Levaquin. (12/13/16) Hg 10.0, wbc 25.5 (elevated), Cr 2.2 (stable), lactate 2.1 (decrease). Urine culture (12/11/16) Klebsiella, Levaquin. Blood culture () negative. CT w/o IV (12/11/16) LK <6mm stones; left ureter 8x5mm stone; left HUN. A: Above; UTI; Leukocytosis. P: Continue IV Levaquin. Serial CBC, bmp. Ambulate with RN assistance. May to SD. Objective Physical Examination Heart Exam: Positive: Normal S1, Normal S2, Rate Normal, Regular Rhythm Vital Signs/I&O Vital Signs Date Time Temp Pulse Resp B/P Pulse Ox O2 Delivery O2 Flow Rate FiO2 12/13/16 09:00 94 24 96/63 97 Room Air 12/13/16 08:00 99.3 12/13/16 06:00 2.0 I&O- Last 24 Hours up to 6 AM 12/13/16 05:59 Intake Total 1161.5 ml Output Total 4090 ml Balance -2928.5 ml Laboratory Data Labs 24H Laboratory Tests 2 12/12/16 11:27: Urine Amorphous Sediment , Urine Appearance CLEAR, Urine Color YELLOW, Urine pH 5.0, Urine Specific [place] 1.004, Urine Protein NEGATIVE, Urine Glucose (UA) NEGATIVE, Urine Ketones NEGATIVE, Urine Urobilinogen 0.2, Urine Bilirubin NEGATIVE, Urine Leukocyte Esterase 3+H, Urine Bacteria (Auto) NEGATIVE, Urine Blood 3+H, Urine Calcium Carbonate Cryst(Auto) , Urine Calcium Oxalate Cryst ( Auto) , Urine Calcium Phosphate Debby (Auto) , Urine Cellular Casts , Urine Cystine Crystals , Urine Granular Casts (Auto) , Urine Hyaline Casts (Auto) 0, Urine Leucine Crystals , Urine Mucus (Auto) SMALL, Urine Nitrite NEGATIVE, Urine Oval Fat Bodies (Auto) , Urine RBC (Auto) TNTCH, Urine Random Creatinine < 13.0, Urine Random Sodium 123, Urine Renal Epithelial Cells , Urine Sperm ( Auto) , Urine Squamous Epithelial Cells 0, Urine Transitional Epithelial Cells , Urine Trichomonas (Auto) , Urine Triple Phosphate Cryst (Auto) , Urine Tyrosine Crystals , Urine Uric Acid Crystals (Auto) , Urine WBC (Auto) 133H, Urine Waxy Casts (Auto) , Urine Yeast-Like Cells (Auto) 12/12/16 12:13: Anion Gap 15, Anisocytosis 1+, Band Neutrophils 7, Blood Urea Nitrogen 33H, Creatinine 2.44H, Sodium Level 140, Potassium Level 4.2, Chloride Level 108H, Carbon Dioxide Level 17L, Calcium Level 7.5L, Glomerular Filtration Rate 21.0L, Lactic Acid Followup at 4 Hours 3.2*H, Lymphocytes (Manual) 2L, Metamyelocytes 1H, Monocytes (Manual) 14H, Neutrophils 76H, Platelet Estimate DECREASED 12/13/16 04:42: Anion Gap 12, Band Neutrophils 8, Blood Urea Nitrogen 35H, Creatinine 2.24H, Sodium Level 143, Potassium Level 3.7, Chloride Level 109H, Carbon Dioxide Level 22, Calcium Level 7.1L, Glomerular Filtration Rate 23.2L, Lymphocytes ( Manual) 6L, Monocytes (Manual) 7, Neutrophils 79H, Platelet Estimate DECREASED, Phosphorus Level 5.4H, Aspartate Amino Transf (AST/SGOT) 83H, Alanine Aminotransferase (ALT/SGPT) 106H, Lactate Dehydrogenase 212, Total Creatine Kinase 47#, Alkaline Phosphatase 164H, Total Bilirubin 0.7, Triglycerides Level 196H, Cholesterol Level 98, Total Protein 5.4L, Albumin 2.1L, Albumin/Globulin Ratio 0.64L, Red Blood Cell Morphology NORMAL, Vancomycin Level Trough 13.6 12/13/16 08:00: Lactic Acid (Sepsis) 2.1*H CBC/BMP Laboratory Tests 12/12/16 12:13 Calcium Level 7.5 L, Red Blood Count 3.61 L, Mean Corpuscular Volume 93.4, Mean Corpuscular Hemoglobin 29.3, Mean Corpuscular Hemoglobin Concent 31.4 L, Red Cell Distribution Width 15.4 H 12/13/16 04:42 Calcium Level 7.1 L, Red Blood Count 3.59 L, Mean Corpuscular Volume 89.2, Mean Corpuscular Hemoglobin 27.8, Mean Corpuscular Hemoglobin Concent 31.2 L, Red Cell Distribution Width 15.4 H, Phosphorus Level 5.4 H, Aspartate Amino Transf ( AST/SGOT) 83 H, Alanine Aminotransferase (ALT/SGPT) 106 H, Lactate Dehydrogenase 212, Total Creatine Kinase 47 #, Alkaline Phosphatase 164 H, Total Bilirubin 0.7, Triglycerides Level 196 H, Cholesterol Level 98, Total Protein 5.4 L, Albumin 2.1 L Microbiology Microbiology 12/11/16 Blood Culture - Preliminary, Resulted No Growth after 48 hours. All Specime... 12/11/16 Blood Culture - Preliminary, Resulted No Growth after 48 hours. All Specime... 12/11/16 Urine Culture - Final, Complete Klebsiella Pneumoniae 12/10/16 Urine Culture - Final, Complete Klebsiella Pneumoniae LAYTON SKY MD Dec 13, 2016 09:58
--- NOTE | 2016-12-13 12:04 | RO ---
DATE OF PROCEDURE: 12/11/2016 PREOPERATIVE DIAGNOSIS: Left hydronephrosis plus left ureteral stone. POSTOPERATIVE DIAGNOSIS: Left hydronephrosis plus left ureteral stone. PROCEDURE PERFORMED: Cystoscopy plus left double J stent placement, plus a #6 [place] Kirwin Cook stent. SURGEON: Dhruv Galvez MD [employer]OP MANAGER: Dr. Kaila Mazariegos, PGY-3 ANESTHESIA: General. COMPLICATIONS: None. ESTIMATED BLOOD LOSS: N/A. HISTORY OF PRESENT ILLNESS: This is a 66-year-old female patient that has left hydronephrosis due to a left proximal ureteral stone, about 9 mm in diameter. The patient has urosepsis and for this reason she has required Versed sedation and being on pressors. For this reason she has consented for cystoscopy plus left double J stent placement, #6 [place] Universa Cook. PROCEDURE DESCRIPTION: In a patient under general anesthesia and supine modified low lithotomy position, after prepping and draping the area of the concern, which included the entire genitalia and abdomen, we started by introducing a cystoscope, #23 [place] in diameter with a 30 degree lens down. The urethra and bladder neck were totally normal. The bladder had no tumors, no stones, no foreign objects. We then proceeded to pass a Pollack catheter, #5 [place], up to the kidney and took out some urine for specimen and urine culture and sensitivity. We then passed a Guidewire up to the kidney bypassing the stone. We then proceeded to take out the Pollack catheter, and the leaving the security Guidewire, passed a double J stent #6 [place] Universa Cook up to the kidney. Once the stent was in good position, we took the Guidewire out. We could see the curl in the kidney and the curl in the bladder. We then took a cystoscope and passed a #[address] [place] [address] catheter two way in inflated the balloon to 10 mL. PLAN: The patient will pass to ICU. She will be treated immediately by the hospitalist service and ICU team. Once she has completed recovery from this urosepsis episode, she will followup at the [facility] urology center for definitive therapy of her stone. There were no complications during her surgery. TERA
--- NOTE | 2016-12-13 15:36 | CCN ---
DATE: 12/12/2016 This is hospital day two, intensive care unit (ICU) day #2, the patient remains critically ill with severe sepsis and shock requiring pressor therapy. Vasopressin has been able to be weaned. She is nonoliguric at this point and responding to Lasix. Her temperature is 97.9, pulse rate 95, respirations 32, blood pressure 105/66. Intake and output for the past 24 hours: 4070 in, 2025 out; since midnight 345 in, 725 ouot. At bedside, she is ill-appearing and tachypneic. Her oral mucosa is dry. Neck is supple. No jugular venous distension is appreciated. Heart sounds are regular. Breath sounds coarse clear today; some dullness in the right base. Abdomen is soft. Bowel sounds are appreciated in the right lower quadrant. Extremities show no edema. Pulses diminished. Skin is cool. DIAGNOSTIC STUDIES: Sodium is 141, potassium 4.4, chloride 117, bicarb 17, BUN 30, creatinine 2.35, glucose 136. White cell count is up to 26.5 with 14% band cells, hemoglobin is up to 10.3, hematocrit 33.8, platelet count 83,000. Arterial blood gases show pH 7.30, pCO2 25, pO2 163. Liver enzymes are improved. AST is down to 217, ALT is down to 160, albumin is low at 2.3. PT is 20.6, PTT 47. Fibrinogen is up to 325. Lactic acid remains elevated at 3, phosphorus is high at 5.8, LDH 257. Chest x-ray shows interstitial prominence. Bacteriology cultures are pending. Blood cultures were negative times two. Medications reviewed. This is day #2 meropenem, day #2 of vancomycin, norepinephrine drip is weaned now to 14 mcg per minute. The primary problem requiring critical attention is severe sepsis with shock secondary to urinary obstructive stone and pyuria. This is postop day #1. She is draining effectively. Levophed dose is being weaned albeit slowly. Broad-spectrum antibiotics will continue pending culture and sensitivity. Fluid volume appears to be positive. The patient is tachypneic and is responding to Lasix. We will cautiously target a CVP of 10. DIC. The patient's coagulation numbers are slightly improved. She is at high risk for pulmonary embolism. Her elevated creatinine precludes CTA and a V/Q scan would no doubt be equivocal given her chronic x-ray abnormalities. Will obtain an ultrasound study of her legs bilaterally to assess for clot. Acute kidney injury. I suspect ATN. Urinary studies have been sent. Will continue to monitor closely urinary output and renal indices. DVT prophylaxis is being addressed with sequential hose given her coagulopathy we will not use subcutaneous heparins. Ulcer prophylaxis is indicated in this case given the critical nature of her illness. We will continue with IV Protonix. I have updated the patient and her family at bedside. I have reviewed the case with the hospitalist service. The patient's condition remains critical. Prognosis is guarded. 88 minutes was spent in the provision of bedside critical care coordination over the last day.
[2016-12-13] MEDS: SERTRALINE 100 MG TAB PO SCH (21:03)
[2016-12-13] MEDS: diphenhydrAMINE 25 MG CAP PO PRN (21:03)
[2016-12-14] VITALS (23 sets, daily range): BP systolic 87–117; BP diastolic 54–69
[2016-12-14 05:26] LABS: DIFF SLIDE NUMBER 56; MEAN CORPUSCULAR HEMOGLOBIN 28.6 pg (27.0-33.0); MEAN CORPUSCULAR HGB CONC 32.3 g/dl (32.0-36.5); MEAN CORPUSCULAR VOLUME 88.5 fl (80.0-96.0); RED CELL DISTRIBUTION WIDTH 15.4 % (11.5-14.5)
[2016-12-14 05:29] LABS: PLATELET COUNT, AUTOMATED 47 k/mm3 (150-450)
[2016-12-14 05:36] LABS: ALBUMIN 1.9 GM/DL (3.2-5.2); ALBUMIN/GLOBULIN RATIO 0.66 (1.00-1.93); CALCIUM LEVEL 7.5 MG/DL (8.8-10.2); CREATININE FOR GFR 1.7 MG/DL (0.55-1.02); GLOMERULAR FILTRATION RATE 31.9 (>45); PHOSPHORUS LEVEL 3.3 MG/DL (2.5-4.9); POTASSIUM SERUM 3.2 MEQ/L (3.5-5.1); TOTAL PROTEIN 4.8 GM/DL (6.4-8.2)
[2016-12-14 06:24] LABS: BANDS 1 % (< 11); EOSINOPHILS 1 % (0-5)
[2016-12-14] MEDS ORDERED: POTASSIUM CHLORIDE 10 MEQ SR TABLET PO ONE (08:15)
[2016-12-14] MEDS: PANTOPRAZOLE 40MG TAB (PROTONIX) PO SCH (08:28)
[2016-12-14] MEDS: LACTOBACILLUS ACIDOPHILUS CAP (BACID) PO SCH (08:28)
[2016-12-14] MEDS: LevoFLOXacin IV 500 MG in APPROPRIATE DILUENT 1 EA IV SCH (08:29)
[2016-12-14] MEDS ORDERED: SLF 3 ML SYR IV PRN (12:15)
[2016-12-14] MEDS: SLF 3 ML SYR IV SCH ×2 (14:09→21:05)
[2016-12-14] MEDS: SODIUM CHLORIDE 0.9% INJ 10 ML SYR IV SCH ×2 (14:09→21:05)
[2016-12-14] MEDS: SODIUM CHLORIDE 0.9% INJ 10 ML SYR IV PRN (14:10)
[2016-12-14] MEDS ORDERED: CONRAY-60 60% 50ML VIAL (Q9961) ONE (16:16)
[2016-12-14] MEDS: SERTRALINE 100 MG TAB PO SCH (21:04)
--- NOTE | 2016-12-14 21:19 | IPN ---
DATE OF VISIT: 12/14/2016 Linette was seen while rounding for the hospitalist. She is improved from review of the notes from the duration of her hospitalization. She feels better. She is off her pressors. Her blood pressure is improved. Her renal function is improved as well. PHYSICAL EXAMINATION: VITAL SIGNS: Blood pressure 99/54, pulse 75, respiratory rate 20, 99.3 degrees on 97% oxygen saturation. GENERAL: She is alert, conversant, in no distress, visiting with family members. LUNGS: Decreased breath sounds at the bases but clear. HEART: Regular rhythm. ABDOMEN: Soft, nontender, no costovertebral angle (CVA) tenderness . EXTREMITIES: No peripheral edema. LABORATORY DATA: White count 28,000, hemoglobin 9.5, platelets 47. Sodium 143, potassium 3.2, BUN 38, creatinine 1.7, glucose 76, lactic acid is down to 2.1. Liver functions have improved. IMPRESSION: 1. Septic shock secondary to Klebsiella urinary tract infection (UTI). She is on Levaquin, she is off her pressors. Markers of sepsis are improving as well. 2. Obstructive uropathy status post stent placement. Retrograde pyelogram. Urology had ordered a renal scan for which the tracer is apparently in a nationwide shortage so this will be canceled. 3. Acute renal failure. She is improving with correction of her hypotension and acute tubular necrosis (ATN). 4. Disseminated intravascular coagulation (DIC). Thrombocytopenia is persistent but rate of fall of platelets is decreasing. She has leukocytosis which is probably reactive. She is on a mechanical deep venous thrombosis (DVT) prophylaxis device. 5. Anxiety, depression. She uses Benadryl for sleep. I plan to keep her in the intensive care unit (ICU) today. If she remains off pressors and continues to improve clinically, she can probable move out tomorrow. Because of the severity of her sepsis I am increasing the dose of her Levaquin, also increasing her activity.
[2016-12-15] VITALS (14 sets, daily range): BP systolic 88–129; BP diastolic 48–70
[2016-12-15] MEDS: SODIUM CHLORIDE 0.9% INJ 10 ML SYR IV SCH ×3 (05:01→21:19)
[2016-12-15] MEDS: SLF 3 ML SYR IV SCH ×3 (05:02→21:19)
[2016-12-15 05:21] LABS: BASO # 0.1 K/mm3 (0.0-0.2); BASO % 0.3 % (0.0-1.0); EOS # 0.2 K/mm3 (0.0-0.50); LARGE UNSTAINED CELL # 0.4 K/mm3 (0.0-0.4); LARGE UNSTAINED CELL % 1.9 % (0.0-4.0); LYMPH # 2.7 K/mm3 (1.5-4.5); LYMPH % 12.5 % (24.0-44.0); MEAN CORPUSCULAR HEMOGLOBIN 29.4 pg (27.0-33.0); MEAN CORPUSCULAR HGB CONC 33.2 g/dl (32.0-36.5); MEAN CORPUSCULAR VOLUME 88.7 fl (80.0-96.0); MONO # 0.7 K/mm3 (0.0-0.8); MONO % 3.6 % (0.0-5.0); NEUTROPHILS # 15.4 K/mm3 (1.8-7.7); NEUTROPHILS % 80.8 % (36.0-66.0); RED CELL DISTRIBUTION WIDTH 15.4 % (11.5-14.5); WHITE BLOOD COUNT 19.1 K/mm3 (4.0-10.0)
[2016-12-15 05:22] LABS: PLATELET COUNT, AUTOMATED 40 k/mm3 (150-450)
[2016-12-15 05:38] LABS: ALBUMIN 1.8 GM/DL (3.2-5.2); ALBUMIN/GLOBULIN RATIO 0.62 (1.00-1.93); CALCIUM LEVEL 7.6 MG/DL (8.8-10.2); CREATININE FOR GFR 1.39 MG/DL (0.55-1.02); GLOMERULAR FILTRATION RATE 40.3 (>45); PHOSPHORUS LEVEL 2.4 MG/DL (2.5-4.9); POTASSIUM SERUM 3.5 MEQ/L (3.5-5.1); TOTAL PROTEIN 4.7 GM/DL (6.4-8.2)
[2016-12-15] MEDS: PANTOPRAZOLE 40MG TAB (PROTONIX) PO SCH (07:50)
[2016-12-15] MEDS: LACTOBACILLUS ACIDOPHILUS CAP (BACID) PO SCH (07:50)
[2016-12-15] MEDS: LevoFLOXacin IV 500 MG in APPROPRIATE DILUENT 1 EA IV SCH (07:50)
[2016-12-15 12:51] LABS: FIBRINOGEN 499 MG/DL (221-452)
--- NOTE | 2016-12-15 13:00 | IPN ---
DATE OF EXAMINATION: 12/15/2016 SUBJECTIVE: Today, the patient tells me she feels well. She tells me she feels a lot better than she has in the previous days. She denies any complaints at this time. No chest pain, shortness of breath, fevers, chills, nausea, vomiting, or diarrhea. OBJECTIVE: VITAL SIGNS: Temperature 99.3. Pulse 83. Respiratory rate 18. Blood pressure (BP) 11/65. Oxygen (O2) saturation 97% on room air. GENERAL: She is a pleasant elderly female, lying flat in bed, accompanied by her daughter. The patient does not appear to be in any acute distress. HEENT: She is wearing glasses. She has moist mucous membranes. No elevation in central venous pressure (CVP). She has a central venous catheter in the right side of her chest. CARDIOVASCULAR EXAMINATION: S1, S2. Regular. RESPIRATORY EXAMINATION: Is clear. ABDOMINAL EXAMINATION: Is benign. EXTREMITIES: No clubbing, cyanosis, or edema. She has some mild swelling of the right hand. LABORATORY STUDIES: WBC 19.1 trending down from 28, hemoglobin 9.3, hematocrit 27.9, platelet count is 40 trending down from 47. Chemistry panel: Sodium 145, potassium 3.5, chloride 111, bicarbonate 26, BUN 36, creatinine 1.3 down from a peak of 2.4 on 12/12/2016, AST and ALT have returned within normal limits, alkaline phosphatase continues to trend down. Hepatitis panel is negative. MICROBIOLOGY: Urine and blood cultures are positive from 12/11/2016 for Klebsiella pneumoniae, fairly pansensitive. IMAGING: No new imaging. ASSESSMENT AND PLAN: This is a 66-year-old female with sepsis secondary to obstructive uropathy. PROBLEMS: 1. Sepsis secondary to obstructive uropathy. Urology's help is appreciated. She is status post stent placement. Her hemodynamics have greatly improved. She is on appropriate antibiotics, and today is day #3. She is likely to complete a minimum of [address] Birmingham of critical care, his help has been greatly appreciated, as well. As the patient has remained hemodynamically stable, is not actively bleeding, is not requiring any pressor support at this time, she can be transitioned to the medical-surgical floor. 2. Acute renal failure secondary to obstructive uropathy in shock. Continues to improve. Will simply continue to monitor. 3. Transaminitis and thrombocytopenia, likely related to acute disseminated intravascular coagulation (DIC). Will recheck her fibrinogen, PT, PTT. Today, her platelets continue to trend down, however, the rest of her blood work appears to be improving. She is not actively bleeding. Would not consider transfusing her any platelets unless her platelets are less than 20 or active bleeding. The patient does have a history of gastric cancer, however, this does appear to be more acute. On presentation, she is not chronic. If she fails to improve or continues to worsen, may need hematology consultation. 4. Anxiety and depression. She is currently using Benadryl as needed. She is on Zoloft. 5. Deep venous thrombosis (DVT) prophylaxis. Sequentials and thromboembolic deterrents (TEDs). No pharmacological agents in the setting of thrombocytopenia. DISPOSITION: The patient is clinically improving. At this time, I am going to transfer her to the medical-surgical floor. Will continue to monitor her closely.
[2016-12-15] MEDS: SODIUM CHLORIDE 0.9% INJ 10 ML SYR IV PRN ×2 (14:16→23:02)
[2016-12-15] MEDS: SERTRALINE 100 MG TAB PO SCH (21:18)
[2016-12-16] MEDS: SLF 3 ML SYR IV SCH ×3 (05:39→20:44)
[2016-12-16] MEDS: SODIUM CHLORIDE 0.9% INJ 10 ML SYR IV SCH ×3 (05:39→20:45)
[2016-12-16 05:52] LABS: BASO % 0.4 % (0.0-1.0); EOS # 0.2 K/mm3 (0.0-0.50); EOS % 1.3 % (0.0-3.0); LARGE UNSTAINED CELL # 0.4 K/mm3 (0.0-0.4); LARGE UNSTAINED CELL % 2.4 % (0.0-4.0); LYMPH # 2.5 K/mm3 (1.5-4.5); LYMPH % 16.8 % (24.0-44.0); MEAN CORPUSCULAR HEMOGLOBIN 28.8 pg (27.0-33.0); MEAN CORPUSCULAR HGB CONC 31.8 g/dl (32.0-36.5); MEAN CORPUSCULAR VOLUME 90.5 fl (80.0-96.0); MONO # 0.7 K/mm3 (0.0-0.8); MONO % 4.8 % (0.0-5.0); NEUTROPHILS # 11.1 K/mm3 (1.8-7.7); NEUTROPHILS % 74.3 % (36.0-66.0); RED CELL DISTRIBUTION WIDTH 15.1 % (11.5-14.5); WHITE BLOOD COUNT 14.9 K/mm3 (4.0-10.0)
[2016-12-16 06:00] VITALS: BP 114/63
[2016-12-16 06:00] LABS: PLATELET COUNT, AUTOMATED 59 k/mm3 (150-450)
[2016-12-16 06:19] LABS: ALBUMIN 1.9 GM/DL (3.2-5.2); ALBUMIN/GLOBULIN RATIO 0.51 (1.00-1.93); BILIRUBIN,TOTAL 0.8 MG/DL (0.2-1.0); CREATININE FOR GFR 1.41 MG/DL (0.55-1.02); GLOMERULAR FILTRATION RATE 39.6 (>45); PHOSPHORUS LEVEL 3.1 MG/DL (2.5-4.9); POTASSIUM SERUM 3.5 MEQ/L (3.5-5.1); TOTAL PROTEIN 5.6 GM/DL (6.4-8.2)
[2016-12-16] MEDS: PANTOPRAZOLE 40MG TAB (PROTONIX) PO SCH (08:44)
[2016-12-16] MEDS: LACTOBACILLUS ACIDOPHILUS CAP (BACID) PO SCH (08:44)
[2016-12-16] MEDS: LevoFLOXacin IV 500 MG in APPROPRIATE DILUENT 1 EA IV SCH (08:44)
[2016-12-16] MEDS: POTASSIUM CHLORIDE 10 MEQ SR TABLET PO SCH ×2 (08:44→20:44)
[2016-12-16] MEDS: MAGNESIUM OXIDE 400 MG TAB (MAG-OX) PO SCH ×2 (08:45→20:44)
[2016-12-16 14:00] VITALS: BP 124/68
--- NOTE | 2016-12-16 15:18 | IPN ---
DATE: 12/16/2016 SUBJECTIVE: The patient reports that she is feeling much better today. She denies any chest pain, shortness of breath, fevers, chills, nausea, vomiting, or diarrhea. OBJECTIVE: VITAL SIGNS: Temperature 98.2. Pulse 77. Respiratory rate 20. Blood pressure (BP) 114/63. Oxygen (O2) saturation 95% on room air. GENERAL: She is a pleasant elderly, female, lying flat in bed. She does not appear to be in any acute distress. HEENT: Cranial nerves II through XII are grossly intact. She has moist mucous membranes. No elevation in central venous pressure (CVP). CARDIOVASCULAR EXAMINATION: S1, S2. Regular. RESPIRATORY EXAMINATION: Is clear. ABDOMINAL EXAMINATION: Is benign. EXTREMITIES: No clubbing, cyanosis, or edema. LABORATORY STUDIES: WBC 14.9, down from a peak of 28.5, hemoglobin 9.2, hematocrit 28.9, platelet count is 59, up from 40. Chemistry panel: Sodium 143, potassium 3.5, chloride 110, bicarbonate 24, BUN 32, creatinine 1.4, alkaline phosphatase trending down at 130. Liver function tests are within normal limits, essentially. PT is within normal limits from yesterday. PTT is actually low and fibrinogen is actually high. D-dimer is elevated. MICROBIOLOGY: Urine and blood cultures are positive for Klebsiella pneumoniae. IMAGING: No new imaging. ASSESSMENT AND PLAN: This is a 66-year-old female with sepsis secondary to obstructive uropathy. PROBLEMS: 1. Sepsis secondary to obstructive uropathy. Urology's help is appreciated. She is status post stent placement. Her hemodynamics have greatly improved. Today is day #4 of antibiotics. As per urology, she will need to complete a 21-day course. Dr. Birmingham's help from critical care has been greatly appreciated as well. The patient remains hemodynamically stable without any evidence of bleeding. 2. Acute renal failure secondary to obstructive uropathy in shock. She continues to improve. We will simply monitor. 3. Transaminitis and thrombocytopenia, likely related to acute disseminated intravascular coagulation (DIC). Fibrinogen is actually high. Her PT within normal limits, and her PTT is slightly short actually. Her platelets are improving today. I suspect this is resolving and likely related to her sepsis syndrome. 4. Anxiety and depression. She is currently on Zoloft. 5. Insomnia. She is using Benadryl as needed for sleep. 6. Deep venous thrombosis (DVT) prophylaxis. Sequentials and thromboembolic deterrents (TEDs). No pharmacological agents in the setting of thrombocytopenia. 7. Hypomagnesemia and hypokalemia. She will be started on her home repletion. DISPOSITION: The patient is deemed not safe for discharge home at this time, as per physical therapy (PT). I suspect that she will progress over the next 48 to 72 hours. We will continue to monitor her closely.
[2016-12-16] MEDS: SERTRALINE 100 MG TAB PO SCH (20:44)
[2016-12-16 22:00] VITALS: BP 125/70
[2016-12-16] MEDS: diphenhydrAMINE 25 MG CAP PO PRN (22:00)
[2016-12-17] MEDS: SODIUM CHLORIDE 0.9% INJ 10 ML SYR IV SCH (05:26)
[2016-12-17 05:43] LABS: BASO % 0.5 % (0.0-1.0); EOS # 0.2 K/mm3 (0.0-0.50); EOS % 2.2 % (0.0-3.0); LARGE UNSTAINED CELL # 0.3 K/mm3 (0.0-0.4); LARGE UNSTAINED CELL % 2.6 % (0.0-4.0); LYMPH # 2.1 K/mm3 (1.5-4.5); LYMPH % 19.8 % (24.0-44.0); MEAN CORPUSCULAR HEMOGLOBIN 27.9 pg (27.0-33.0); MEAN CORPUSCULAR HGB CONC 31.4 g/dl (32.0-36.5); MEAN CORPUSCULAR VOLUME 88.9 fl (80.0-96.0); MONO # 0.5 K/mm3 (0.0-0.8); MONO % 5.1 % (0.0-5.0); NEUTROPHILS # 7.3 K/mm3 (1.8-7.7); NEUTROPHILS % 69.9 % (36.0-66.0); RED CELL DISTRIBUTION WIDTH 15.1 % (11.5-14.5); WHITE BLOOD COUNT 10.4 K/mm3 (4.0-10.0)
[2016-12-17 05:45] LABS: PLATELET COUNT, AUTOMATED 74 k/mm3 (150-450)
[2016-12-17 06:00] VITALS: BP 100/58
[2016-12-17] MEDS ORDERED: LevoFLOXacin 500 MG TABLET PO SCH ×2 (06:00)
[2016-12-17] MEDS: SLF 3 ML SYR IV SCH (06:00)
[2016-12-17 06:01] LABS: ALBUMIN 2.1 GM/DL (3.2-5.2); ALBUMIN/GLOBULIN RATIO 0.6 (1.00-1.93); BILIRUBIN,TOTAL 0.7 MG/DL (0.2-1.0); CALCIUM LEVEL 8.3 MG/DL (8.8-10.2); CREATININE FOR GFR 1.22 MG/DL (0.55-1.02); GLOMERULAR FILTRATION RATE 46.8 (>45); POTASSIUM SERUM 3.8 MEQ/L (3.5-5.1); TOTAL PROTEIN 5.6 GM/DL (6.4-8.2)
[2016-12-17] MEDS: LACTOBACILLUS ACIDOPHILUS CAP (BACID) PO SCH (09:11)
[2016-12-17] MEDS: MAGNESIUM OXIDE 400 MG TAB (MAG-OX) PO SCH (09:11)
[2016-12-17] MEDS: PANTOPRAZOLE 40MG TAB (PROTONIX) PO SCH (09:11)
[2016-12-17] MEDS: POTASSIUM CHLORIDE 10 MEQ SR TABLET PO SCH (09:11)
[2016-12-17] MEDS ORDERED: LEVA500T PO (11:06)
--- NOTE | 2016-12-17 17:42 | DSES ---
DATE OF ADMISSION: 12/11/2016 DATE OF DISCHARGE: 12/17/2016 DISCHARGE DIAGNOSES: 1. Sepsis secondary to obstructive uropathy. 2. Acute renal failure secondary to obstructive uropathy and shock. 3. Disseminated intravascular coagulation. 4. Anxiety and depression. 5. Insomnia. 6. Hypomagnesemia/hypokalemia. HOSPITAL COURSE: The patient is a 66-year-old female who presented in acute kidney injury, shock, disseminated intravascular coagulation (DIC). Was found to have sepsis secondary to obstructive uropathy. She was seen in consultation by urology and did have a stent placed. She was initially followed on the critical care service as well. Dr. Birmingham's help was also greatly appreciated. Following stent placement and antibiotic therapy and fluid support, the patient gradually did improve to the point where she no longer required intravenous (IV) pressors. Her DIC did gradually resolve. Her liver function tests returned to normal. Her coagulopathy did gradually improve. She did not have any active or concerning bleeding. She did not require any transfusions during her stay. SUBJECTIVE: Today the patient tells me that she is feeling better. She has no specific complaints. She feels almost back to normal other than feeling a little bit of weakness. She denies any chest pain, shortness of breath, fevers, chills, nausea, vomiting, or diarrhea. OBJECTIVE: VITAL SIGNS: Temperature 98.3, pulse 86, respiratory rate 17, blood pressure (BP) 100/58, oxygen saturation 98% on room air. GENERAL: She is a very pleasant, elderly female, lying flat in bed. She does not appear to be in any acute distress. HEENT: She is wearing reading glasses. She has moist mucous membranes. No elevation in central venous pressure (CVP). Cranial nerves II-XII are grossly intact. CARDIOVASCULAR: S1, S2, regular. RESPIRATORY: Fairly clear. ABDOMEN: Benign. EXTREMITIES: There is no clubbing, cyanosis, or edema. There is no costovertebral angle (CVA) tenderness. LABORATORY STUDIES: Today, WBC 10.4; continues to trend down from a peak of 28.5. Hemoglobin 8.3, hemoglobin 26.5, platelet count is 74, coming up from 59. The low point was 40. Chemistry panel: Sodium 143, potassium 3.8, chloride 108, bicarbonate 29, BUN 27, creatinine 1.2. Continues to trend down from a peak of 2.4. Microbiology: She did return positive for Klebsiella pneumoniae resistant only to ampicillin. Urine from December 11 as well as December 10 and blood from December 11. IMAGING: The patient during her stay had a CT of the abdomen and pelvis, which revealed left-sided hydronephrosis, which resolved post double left ureteral stent placement. She still had a persistent stone that was unchanged at the lower pole of the left kidney. She had a chest CT scan on December 12 as well, which revealed small bilateral effusions and bilateral areas of plate-like and segmental and subsegmental atelectasis. She had a vascular ultrasound on December 12 as well that revealed no deep vein thrombosis (DVT). ASSESSMENT AND PLAN: This is a 66-year-old female with resolved sepsis secondary to obstructive uropathy. 1. Sepsis secondary to obstructive uropathy. Urology's help is greatly appreciated. She is status post stent placement. Her hemodynamics have improved. She has no longer required pressors for several days. Today is day 5 of antibiotics. She has been transitioned to levofloxacin by mouth once daily. She will continue another 18 days of this to complete a 21-day course as per urology's recommendations. She is to followup with neurology within [address] Birmingham's help from the critical care standpoint at the time of admission is also appreciated. 2. Acute renal failure secondary to obstructive uropathy and shock. Renal function continues to improve back to her baseline. We will simply continue to monitor for now. 3. Disseminated intravascular coagulation (DIC). The patient had thrombocytopenia, low fibrinogen, high PT and PTT, as well as elevated D-dimer. Her platelets dropped to a low of 40; however, with treatment of her sepsis syndrome, which is likely the underlying problem, her DIC is now resolving. I would recommend that a repeat complete blood count (CBC) be checked by her primary care provider in the near future. She did have some mild anemia, and to ensure her platelets have returned to normal. 4. Anxiety/depression. The patient is currently on Zoloft. 5. Insomnia. While in the hospital she used Benadryl as a sleep aid. Tolerated it quite well. 6. Hypomagnesemia/hypokalemia. She has been restarted on her home repletion. 7. Deep vein thrombosis (DVT) prophylaxis. She was on sequentials and thromboembolic deterrents (TEDs). No pharmacological agents secondary to her DIC. DISPOSITION: The patient is being discharged home. She has been cleared by physical therapy. She is to followup with her primary care physician (PCP) within 7 days, followup with urology within 1 week. Her activity is as prior to admission. Her diet is as prior to admission. She is to return to the emergency room (ER) if her symptoms worsen or any bleeding. MEDICATIONS AT THE TIME OF DISCHARGE: - levofloxacin 500 mg by mouth daily - aspirin 81 mg at bedtime. Will currently be on hold. - vitamin D3 at 2000 units daily - Gaviscon 160/105 two chewable tablets four times daily as needed for heartburn/indigestion - Bacid one tablet daily - magnesium oxide 400 mg twice a day - Protonix 40 mg daily - potassium chloride 20 mEq twice a day - sertraline 100 mg at bedtime - simvastatin 20 mg at bedtime The patient's carvedilol 12.5 mg is currently on hold as well. Her blood pressure has been soft, and she has not required it during her stay here. Could consider restarting upon followup with her PCP.
== END 2016-12-17 13:47 | disposition home or self-care (01) | DRG 871 ==
LOC: EDBD 22:17 → M ED 23:31 → M ED INP 12-11 02:10 → M ICU 12-11 11:00 → M MSPAV 12-15 17:52
PROVIDERS: ADMIT Internal Medicine; ATTEND Internal Medicine
PROC: 0T778DZ Dilation of Left Ureter with Intraluminal Device, Via Natural or Artificial Opening Endoscopic (ICD-10-PCS; principal; 2016-12-11 08:33)
DX: A41.9 Sepsis, unspecified organism (principal); R65.21 Severe sepsis with septic shock; N17.0 Acute kidney failure with tubular necrosis; D65 Disseminated intravascular coagulation [defibrination syndrome]; N13.2 Hydronephrosis with renal and ureteral calculous obstruction; E87.2 Acidosis; D61.818 Other pancytopenia; K56.7 Ileus, unspecified; I10 Essential (primary) hypertension; K21.0 Gastro-esophageal reflux disease with esophagitis; F41.9 Anxiety disorder, unspecified; F32.9 Major depressive disorder, single episode, unspecified; B96.1 Klebsiella pneumoniae [K. pneumoniae] as the cause of diseases classified elsewhere; G47.00 Insomnia, unspecified; E78.5 Hyperlipidemia, unspecified; E87.6 Hypokalemia; E83.42 Hypomagnesemia; K52.9 Noninfective gastroenteritis and colitis, unspecified; K42.9 Umbilical hernia without obstruction or gangrene; K64.8 Other hemorrhoids; K57.90 Diverticulosis of intestine, part unspecified, without perforation or abscess without bleeding; Z85.00 Personal history of malignant neoplasm of unspecified digestive organ; Z87.442 Personal history of urinary calculi; Z86.010 Personal history of colon polyps; Z79.82 Long term (current) use of aspirin; Z79.899 Other long term (current) drug therapy; Z88.0 Allergy status to penicillin

== ENCOUNTER → 2017-01-06 | Outpatient (REF) | payer MEDICARE, OTHER ==
[~2017-01-06] MED LIST changes: +ASPI81TAEC PO; +BACITAB3 PO; +CARV12.5 PO; +GAVICHW5 PO; +LEVA500T PO; +MAGN400T2 PO; +PANT40TA2 PO; +POTA10CA PO; -SIMVASTATIN 20 MG TAB PO SCH
== END ==
LOC: M LAB REF 16:53
PROVIDERS: ATTEND Nurse Practitioner Adult Health
DX: Z90.3 Acquired absence of stomach [part of] (principal); D00.2 Carcinoma in situ of stomach

== ENCOUNTER → 2017-01-07 | Outpatient (CLI) | payer MEDICARE, OTHER ==
[2017-01-07 18:37] LABS: INR 0.94
[2017-01-07 20:15] LABS: CALCIUM OXALATE CRYSTALS SMALL
== END ==
LOC: M SMT 14:51
PROVIDERS: ATTEND Nurse Practitioner Women's Health
DX: N13.2 Hydronephrosis with renal and ureteral calculous obstruction (principal); Z79.899 Other long term (current) drug therapy

== ENCOUNTER → 2017-02-03 | Day surgery (SDC) | payer MEDICARE, OTHER ==
[~2017-02-03] VITALS: Ht 152.4 cm; Wt 59.9 kg
[~2017-02-03] MED LIST changes: +ALIG4CAP PO; +CIPROFLOXACIN 400 MG in APPROPRIATE DILUENT 1 EA IV ONE; +CONRAY-60 60% 50ML VIAL (Q9961) As Ordered ONE; +LIDOCAINE 2% INJ 100 MG/5 ML SDV (FOR ANES.) As Ordered ONE; +LR 1,000 ML IV SCH; +LevoFLOXacin 500 MG TABLET PO SCH; +MIDAZOLAM INJ 2 MG/2 ML VIAL (J2250) As Ordered ONE; +ONDANSETRON 4MG/2ML VIAL (J2405) As Ordered ONE; +ONDANSETRON 4MG/2ML VIAL (J2405) IV PRN; +PERCOCET 5MG/325MG TAB PO PRN; +PERCOCET PO; +PROPOFOL 200 MG/20 ML VIAL As Ordered ONE; +SUCCINYLCHOLINE 100 MG/5 ML SYRINGE (J0330) As Ordered ONE; +VITA250L PO; +ePHEDrine SULFATE 25 MG/5 ML(5MG/ML) SYRINGE As Ordered ONE; +fentaNYL 100 MCG/2 ML INJECTION (J3010) As Ordered ONE; +fentaNYL 100 MCG/2 ML INJECTION (J3010) IV PRN
[2017-02-03 09:40] VITALS: BP 151/66
--- NOTE | 2017-02-03 11:49 | REP ---
C-ARM VIEWS ABDOMEN: Multiple C-arm views of the abdomen performed. There is a catheter extending through the left ureter into the left pelvicaliceal system. A wire is passed and a left ureteral stent is placed with the proximal pigtail coiled in the region of the left renal pelvis and the distal pigtail coiled in the region of the urinary bladder. 34 seconds of fluoroscopy time utilized for the procedure. Signed by Darryl Lea MD 02/03/2017 04:55 P
--- NOTE | 2017-02-04 15:35 | RO ---
DATE OF PROCEDURE: 02/03/2017 PREPROCEDURE DIAGNOSIS: Left ureteral stone and left kidney stones. POSTPROCEDURE DIAGNOSIS: Left ureteral stone and left kidney stones. PROCEDURE: Cystoscopy, plus left ureteroscopy plus basket extraction of stones plus JJ stent exchange plus laser stone lithotripsy. SURGEON: Dr. Dhruv Galvez DAIRY HUSBANDRY WORKER: None. ANESTHESIA: General. COMPLICATIONS: None. ESTIMATED BLOOD LOSS: N/A. HISTORY OF PRESENT ILLNESS: This is a 66-year-old female patient with a left JJ stent and a stone in the proximal ureter and two other stones in the kidney. Patient has consented for cystoscopy plus left ureteroscopy plus laser stone lithotripsy plus whole basket extraction of stones plus old JJ stent exchange. DESCRIPTION OF PROCEDURE: With the patient under general anesthesia in supine modified low lithotomy position, after prepping and draping the area of concern which included the entire genitalia and abdomen, we started by introducing a cystoscope #21-Emirati with 30 degree lens under videoscopic guidance. The urethra and bladder neck were totally normal. The bladder had no tumors, no stones, or foreign objects, it has a left JJ stent in good position. We grabbed with an endoscopic forcep the left JJ stent and took it out of the body of the patient. We passed a Pollack catheter into the left ureteral orifice and passes a guidewire up to the kidney. We then took the cystoscope out and passed a short semi-rigid ureteroscope #7 Emirati in diameter and did a formal ureteroscopy following the guidewire, the whole ureter was clear, there were no stones. At that moment and time, we grabbed a ureteral access sheath parallel sheath and through the guidewire we passed the ureteral access sheath up to the proximal ureter, we took the obturator out and we left the guidewire outside parallel to the ureteral access sheath. At that moment and time, we could visualize the stone in the renal pelvis, there were 12 stones in the mid pole and upper pole of the kidney. With a Holmium laser 200 micron probe we passed it and pulverized the stone into multiple pieces. We grabbed the big pieces out with a 0 tip basket 1.9 Emirati out of the body of the patient. Once the kidney was free of any types of stones we removed the ureteroscope. By removing the ureteroscope and ureteral access sheath at the same time and doing a retrograde ureteroscopy there was no stones in the kidney upper pole, mid pole, lower pole or the ureter. At that moment and time we placed the cystoscope back in and placed a JJ stent #[id number] Fost[employer] Cook following the guidewire. Once the stent was in good position, we took the guidewire out and the curl could be seen in the kidney and the curl in the bladder. There were no complications. PLAN: The patient will go home with antibiotic and pain medication today. She will followup in 1-2 weeks for removal of the left JJ stent.
== END | disposition home or self-care (01) ==
LOC: M SDC 05:35
PROVIDERS: ATTEND Urology
DX: N20.2 Calculus of kidney with calculus of ureter (principal); E11.9 Type 2 diabetes mellitus without complications; I10 Essential (primary) hypertension; E78.5 Hyperlipidemia, unspecified; K21.9 Gastro-esophageal reflux disease without esophagitis; M17.0 Bilateral primary osteoarthritis of knee; C16.9 Malignant neoplasm of stomach, unspecified; N39.0 Urinary tract infection, site not specified; T88.59XD Other complications of anesthesia, subsequent encounter; R23.3 Spontaneous ecchymoses; M43.6 Torticollis; F41.9 Anxiety disorder, unspecified; Z88.0 Allergy status to penicillin; Z79.899 Other long term (current) drug therapy; Z98.51 Tubal ligation status; Z86.19 Personal history of other infectious and parasitic diseases; Z90.710 Acquired absence of both cervix and uterus; Z87.81 Personal history of (healed) traumatic fracture
CPT/HCPCS: 52356; 74420; 82360; 88300; C1726; C1894; C2617; J0330; J0744; J2250; J2405; J3010; Q9961

== ENCOUNTER → 2017-03-03 | Outpatient (REF) | payer MEDICARE ==
[~2017-03-03] MED LIST changes: -CIPROFLOXACIN 400 MG in APPROPRIATE DILUENT 1 EA IV ONE; -CONRAY-60 60% 50ML VIAL (Q9961) As Ordered ONE; -LIDOCAINE 2% INJ 100 MG/5 ML SDV (FOR ANES.) As Ordered ONE; -LR 1,000 ML IV SCH; -LevoFLOXacin 500 MG TABLET PO SCH; -MIDAZOLAM INJ 2 MG/2 ML VIAL (J2250) As Ordered ONE; -ONDANSETRON 4MG/2ML VIAL (J2405) As Ordered ONE; -ONDANSETRON 4MG/2ML VIAL (J2405) IV PRN; -PERCOCET 5MG/325MG TAB PO PRN; -PROPOFOL 200 MG/20 ML VIAL As Ordered ONE; -SUCCINYLCHOLINE 100 MG/5 ML SYRINGE (J0330) As Ordered ONE; -ePHEDrine SULFATE 25 MG/5 ML(5MG/ML) SYRINGE As Ordered ONE; -fentaNYL 100 MCG/2 ML INJECTION (J3010) As Ordered ONE; -fentaNYL 100 MCG/2 ML INJECTION (J3010) IV PRN
== END ==
LOC: M SMT 16:49
PROVIDERS: ATTEND Urology
DX: N13.2 Hydronephrosis with renal and ureteral calculous obstruction (principal)

== ENCOUNTER → 2017-03-08 | Outpatient (CLI) | payer MEDICARE, OTHER ==
[~2017-03-08] MED LIST changes: +BACITAB PO; -BACITAB3 PO; +LEVA1TAB2 PO; -LEVA500T PO; -METF1000 PO; +METF10004 PO; +MOBI4TAB PO; -MOBI7.5T10 PO
[2017-03-08 15:23] LABS: CALCIUM LEVEL 9.5 MG/DL (8.8-10.2); CREATININE FOR GFR 1.2 MG/DL (0.55-1.02); GLOMERULAR FILTRATION RATE 47.6 (>45); MAGNESIUM LEVEL 2.3 MG/DL (1.8-2.4); POTASSIUM SERUM 4.8 MEQ/L (3.5-5.1); URIC ACID 4.5 MG/DL (2.6-6.0)
== END ==
LOC: M SMT 10:20
PROVIDERS: ATTEND Urology
DX: N13.2 Hydronephrosis with renal and ureteral calculous obstruction (principal)
CPT/HCPCS: 36415; 82310; 82374; 82435; 82565; 83735; 83970; 84100; 84132; 84295; 84550; G0463

== ENCOUNTER → 2017-05-05 | Outpatient (REF) | payer MEDICARE, OTHER ==
[2017-05-05 20:10] LABS: PERCENT SATURATION 9.1 % (13.2-45.0)
== END ==
LOC: M LAB REF 17:36
PROVIDERS: ATTEND Internal Medicine Nephrology
DX: N18.3 Chronic kidney disease, stage 3 (moderate) (principal); D64.9 Anemia, unspecified; Z85.028 Personal history of other malignant neoplasm of stomach

== ENCOUNTER → 2017-05-10 | Outpatient (CLI) | payer MEDICARE, OTHER ==
--- NOTE | 2017-05-10 08:16 | REP ---
Renal ultrasound: The kidneys are in the low normal size range. Right kidney measures 9.6 x 5.0 x 3.7 cm. Left kidney measures 9.3 x 4.7 x 4.2 cm. There is no hydronephrosis, calculus, mass or cyst in the right and the left kidneys. Small linear echogenic foci are identified compatible with vascular atheroma. Bladder ultrasound: The bladder is incompletely distended and cannot be further assessed. Impression: Essentially negative renal ultrasound except for probable vascular atheromatous calcification. Signed by Darryl Patel MD 05/10/2017 08:08 A
== END ==
LOC: M RAD 06:43
PROVIDERS: ATTEND Internal Medicine Nephrology
DX: N18.3 Chronic kidney disease, stage 3 (moderate) (principal)

== ENCOUNTER → 2017-05-17 | Outpatient (CLI) | payer MEDICARE, OTHER ==
--- NOTE | 2017-05-17 09:21 | REPMRS ---
Patient History The patient states she has not had a clinical breast exam in over a year. Patient is postmenopausal and has history of stomach cancer at age 64. Family history of colorectal cancer in father at age 50 or over and breast cancer in sister at age 51. Digital Woman Screen Mammo: May 17, 2017 - Exam #: [id number] Bilateral CC and MLO view(s) were taken. Technologist: Ramona Mahan Technologist Prior study comparison: May 11, 2016, digital woman screen mammo performed at [facility]. May 10, 2015, digital woman screen mammo performed at [facility]. FINDINGS: There are scattered fibroglandular densities. There has been no change in the appearance of the mammogram from the prior studies. There is a mild amount of residual fibroglandular tissue which is fairly symmetric. There is no interval development of dominant mass, architectural distortion, or clustered microcalcification suggestive of malignancy. ASSESSMENT: BI-RADS/ACR category 1 mammogram. Negative. Recommendation Routine screening mammogram in 1 year (for women over age 40). This mammogram was interpreted with the aid of an FDA-approved computer-aided dectection system. Electronically Signed By: Darryl Lea MD 05/17/17 0921
== END ==
LOC: M WHC 08:24
PROVIDERS: ATTEND Internal Medicine
DX: Z12.31 Encounter for screening mammogram for malignant neoplasm of breast (principal); Z78.0 Asymptomatic menopausal state; Z80.0 Family history of malignant neoplasm of digestive organs; Z80.3 Family history of malignant neoplasm of breast

== ENCOUNTER → 2017-10-19 | Outpatient (REF) | payer MEDICARE, OTHER ==
[2017-10-19 14:24] LABS: VITAMIN B12 LEVEL > 2000 PG/ML (247-911)
== END ==
LOC: M LAB REF 13:34
DX: D00.2 Carcinoma in situ of stomach (principal)
CPT/HCPCS: 82607

== ENCOUNTER 2017-12-23 08:59 | Inpatient (IN) | payer MEDICARE, OTHER ==
[2017-12-23] MEDS: MORPHINE 4 MG/ML 1ML VIAL (J2270) IV (09:37)
[2017-12-23] MEDS: ONDANSETRON 4MG/2ML VIAL (J2405) IV (09:37)
[2017-12-23] MEDS: IBUPROFEN 600 MG TAB PO (11:05)
[2017-12-23] MEDS: CYCLOBENZAPRINE 5MG TABLET PO (11:05)
[2017-12-23] MEDS: PERCOCET 5MG/325MG TAB PO ×2 (11:05→21:12)
[2017-12-23] MEDS ORDERED: PERCOCET 5MG/325MG TAB PO (18:00)
[2017-12-23] MEDS ORDERED: ACETAMINOPHEN TAB 650MG DOSE (2X325MG) PO (18:00)
[2017-12-23 21:11] LABS: HEMOGLOBIN 11.8 g/dl (12.0-15.5); MEAN CORPUSCULAR HEMOGLOBIN 31.3 pg (27.0-33.0); MEAN CORPUSCULAR HGB CONC 31.9 g/dl (32.0-36.5); MEAN CORPUSCULAR VOLUME 98.1 fl (80.0-96.0); PLATELET COUNT, AUTOMATED 143 10^3/uL (150-450); RED BLOOD COUNT 3.77 10^6/uL (4.00-5.40); RED CELL DISTRIBUTION WIDTH 13.9 % (11.5-14.5)
[2017-12-23] MEDS: SENOKOT S TAB PO (21:11)
[2017-12-23] MEDS: HEPARIN SOD (PORCINE) 5000 UNITS/ML VIAL SC (21:12)
[2017-12-23 21:32] LABS: ANION GAP 6 MEQ/L (8-16); BLOOD UREA NITROGEN 21 MG/DL (7-18); CALCIUM LEVEL 8.6 MG/DL (8.8-10.2); CARBON DIOXIDE LEVEL 26 MEQ/L (21-32); CHLORIDE LEVEL 106 MEQ/L (98-107); CPK CREATINE PHOSPHOKINASE 78 U/L (26-192); CREATININE FOR GFR 1.05 MG/DL (0.55-1.30); GLOMERULAR FILTRATION RATE 55.5 (>45); GLUCOSE, FASTING 129 MG/DL (70-100); POTASSIUM SERUM 4.6 MEQ/L (3.5-5.1); SODIUM LEVEL 138 MEQ/L (136-145)
[2017-12-24] MEDS: PERCOCET 5MG/325MG TAB PO ×3 (02:30→13:38)
[2017-12-24 07:55] LABS: HEMATOCRIT 37.6 % (36.0-47.0); MEAN CORPUSCULAR HEMOGLOBIN 31.1 pg (27.0-33.0); MEAN CORPUSCULAR HGB CONC 31.9 g/dl (32.0-36.5); MEAN CORPUSCULAR VOLUME 97.4 fl (80.0-96.0); PLATELET COUNT, AUTOMATED 138 10^3/uL (150-450); RED BLOOD COUNT 3.86 10^6/uL (4.00-5.40); RED CELL DISTRIBUTION WIDTH 14.2 % (11.5-14.5); WHITE BLOOD COUNT 6.1 10^3/uL (4.0-10.0)
[2017-12-24 08:15] LABS: ANION GAP 5 MEQ/L (8-16); BLOOD UREA NITROGEN 19 MG/DL (7-18); CALCIUM LEVEL 8.6 MG/DL (8.8-10.2); CARBON DIOXIDE LEVEL 28 MEQ/L (21-32); CHLORIDE LEVEL 106 MEQ/L (98-107); CREATININE FOR GFR 1.06 MG/DL (0.55-1.30); GLOMERULAR FILTRATION RATE 54.9 (>45); GLUCOSE, FASTING 105 MG/DL (70-100); POTASSIUM SERUM 4.2 MEQ/L (3.5-5.1); SODIUM LEVEL 139 MEQ/L (136-145)
[2017-12-24] MEDS: HEPARIN SOD (PORCINE) 5000 UNITS/ML VIAL SC ×2 (08:29→21:38)
[2017-12-24] MEDS: SENOKOT S TAB PO ×2 (08:29→21:38)
[2017-12-24] MEDS: SERTRALINE 100 MG TAB PO (21:39)
[2017-12-24] MEDS: SIMVASTATIN 20 MG TAB PO (21:39)
[2017-12-25] MEDS: PERCOCET 5MG/325MG TAB PO ×5 (00:07→23:36)
[2017-12-25 06:59] LABS: HEMATOCRIT 36.5 % (36.0-47.0); HEMOGLOBIN 11.9 g/dl (12.0-15.5); MEAN CORPUSCULAR HEMOGLOBIN 31.8 pg (27.0-33.0); MEAN CORPUSCULAR HGB CONC 32.6 g/dl (32.0-36.5); MEAN CORPUSCULAR VOLUME 97.6 fl (80.0-96.0); PLATELET COUNT, AUTOMATED 132 10^3/uL (150-450); RED BLOOD COUNT 3.74 10^6/uL (4.00-5.40); RED CELL DISTRIBUTION WIDTH 13.8 % (11.5-14.5); WHITE BLOOD COUNT 6.5 10^3/uL (4.0-10.0)
[2017-12-25 07:21] LABS: ANION GAP 6 MEQ/L (8-16); BLOOD UREA NITROGEN 14 MG/DL (7-18); CALCIUM LEVEL 8.8 MG/DL (8.8-10.2); CARBON DIOXIDE LEVEL 28 MEQ/L (21-32); CHLORIDE LEVEL 103 MEQ/L (98-107); CREATININE FOR GFR 0.82 MG/DL (0.55-1.30); GLOMERULAR FILTRATION RATE > 60.0 (>45); GLUCOSE, FASTING 101 MG/DL (70-100); POTASSIUM SERUM 3.9 MEQ/L (3.5-5.1); SODIUM LEVEL 137 MEQ/L (136-145)
[2017-12-25] MEDS: SENOKOT S TAB PO ×2 (08:46→21:20)
[2017-12-25] MEDS: HEPARIN SOD (PORCINE) 5000 UNITS/ML VIAL SC ×2 (08:46→21:20)
[2017-12-25] MEDS: MIRALAX *UNIT DOSE* 17GM PACKET PO (14:38)
[2017-12-25] MEDS: SERTRALINE 100 MG TAB PO (21:21)
[2017-12-25] MEDS: SIMVASTATIN 20 MG TAB PO (21:21)
[2017-12-26] MEDS: PERCOCET 5MG/325MG TAB PO ×4 (03:32→19:51)
[2017-12-26 06:54] LABS: HEMOGLOBIN 11.5 g/dl (12.0-15.5); MEAN CORPUSCULAR HEMOGLOBIN 31.6 pg (27.0-33.0); MEAN CORPUSCULAR HGB CONC 32.9 g/dl (32.0-36.5); MEAN CORPUSCULAR VOLUME 96.2 fl (80.0-96.0); PLATELET COUNT, AUTOMATED 133 10^3/uL (150-450); RED BLOOD COUNT 3.64 10^6/uL (4.00-5.40); RED CELL DISTRIBUTION WIDTH 13.7 % (11.5-14.5); WHITE BLOOD COUNT 7.1 10^3/uL (4.0-10.0)
[2017-12-26 07:09] LABS: ANION GAP 4 MEQ/L (8-16); BLOOD UREA NITROGEN 18 MG/DL (7-18); CALCIUM LEVEL 8.8 MG/DL (8.8-10.2); CARBON DIOXIDE LEVEL 29 MEQ/L (21-32); CHLORIDE LEVEL 105 MEQ/L (98-107); CREATININE FOR GFR 0.85 MG/DL (0.55-1.30); GLOMERULAR FILTRATION RATE > 60.0 (>45); GLUCOSE, FASTING 115 MG/DL (70-100); SODIUM LEVEL 138 MEQ/L (136-145)
[2017-12-26] MEDS: MIRALAX *UNIT DOSE* 17GM PACKET PO (09:03)
[2017-12-26] MEDS: MOM 30ML SUSPENSION UDC PO (09:03)
[2017-12-26] MEDS: HEPARIN SOD (PORCINE) 5000 UNITS/ML VIAL SC ×2 (09:03→21:03)
[2017-12-26] MEDS: SENOKOT S TAB PO ×2 (09:04→21:03)
[2017-12-26] MEDS: MORPHINE 15 MG SA TAB PO ×2 (09:04→21:03)
[2017-12-26 13:52] LABS: MAGNESIUM LEVEL 2.2 MG/DL (1.8-2.4)
[2017-12-26] MEDS: MAGNESIUM OXIDE 400 MG TAB (MAG-OX) PO ×2 (16:00→21:03)
[2017-12-26] MEDS: ASPIRIN 81 MG ENTERIC TAB PO (16:01)
[2017-12-26] MEDS: PANTOPRAZOLE 40MG TAB (PROTONIX) PO (16:01)
[2017-12-26] MEDS: CYANOCOBALAMIN 500 MCG TAB PO (16:01)
[2017-12-26] MEDS: SIMVASTATIN 20 MG TAB PO (21:02)
[2017-12-26] MEDS: SERTRALINE 100 MG TAB PO (21:03)
[2017-12-27] MEDS: ONDANSETRON 4MG/2ML VIAL (J2405) IV (05:30)
[2017-12-27 07:03] LABS: HEMATOCRIT 36.1 % (36.0-47.0); HEMOGLOBIN 11.6 g/dl (12.0-15.5); MEAN CORPUSCULAR HGB CONC 32.1 g/dl (32.0-36.5); MEAN CORPUSCULAR VOLUME 96.5 fl (80.0-96.0); PLATELET COUNT, AUTOMATED 156 10^3/uL (150-450); RED BLOOD COUNT 3.74 10^6/uL (4.00-5.40); RED CELL DISTRIBUTION WIDTH 13.8 % (11.5-14.5); WHITE BLOOD COUNT 7.9 10^3/uL (4.0-10.0)
[2017-12-27 07:09] LABS: ANION GAP 6 MEQ/L (8-16); BLOOD UREA NITROGEN 18 MG/DL (7-18); CALCIUM LEVEL 8.8 MG/DL (8.8-10.2); CARBON DIOXIDE LEVEL 31 MEQ/L (21-32); CHLORIDE LEVEL 103 MEQ/L (98-107); CREATININE FOR GFR 0.78 MG/DL (0.55-1.30); GLOMERULAR FILTRATION RATE > 60.0 (>45); GLUCOSE, FASTING 128 MG/DL (70-100); SODIUM LEVEL 140 MEQ/L (136-145)
[2017-12-27] MEDS: SENOKOT S TAB PO (09:04)
[2017-12-27] MEDS: MIRALAX *UNIT DOSE* 17GM PACKET PO (09:04)
[2017-12-27] MEDS: PANTOPRAZOLE 40MG TAB (PROTONIX) PO (09:04)
[2017-12-27] MEDS: CYANOCOBALAMIN 500 MCG TAB PO (09:05)
[2017-12-27] MEDS: ASPIRIN 81 MG ENTERIC TAB PO (09:05)
[2017-12-27] MEDS: HEPARIN SOD (PORCINE) 5000 UNITS/ML VIAL SC (09:05)
[2017-12-27] MEDS: MAGNESIUM OXIDE 400 MG TAB (MAG-OX) PO (09:05)
[2017-12-27] MEDS: MORPHINE 15 MG SA TAB PO (09:06)
== END 2017-12-27 10:11 | DRG 563 ==
LOC: M PM&R 12-27 11:15 → M PED 12-27 11:15 → M ED 08:59 → M ED INP 18:00 → M PED 20:30
DX: S52.572A Other intraarticular fracture of lower end of left radius, initial encounter for closed fracture (principal); S32.10XA Unspecified fracture of sacrum, initial encounter for closed fracture; S63.501A Unspecified sprain of right wrist, initial encounter; S43.401A Unspecified sprain of right shoulder joint, initial encounter; I10 Essential (primary) hypertension; E78.5 Hyperlipidemia, unspecified; M43.16 Spondylolisthesis, lumbar region; K21.9 Gastro-esophageal reflux disease without esophagitis; M48.061 Spinal stenosis, lumbar region without neurogenic claudication; F41.9 Anxiety disorder, unspecified; F32.9 Major depressive disorder, single episode, unspecified; Z90.49 Acquired absence of other specified parts of digestive tract; Z88.0 Allergy status to penicillin; Z79.899 Other long term (current) drug therapy; W01.0XXA Fall on same level from slipping, tripping and stumbling without subsequent striking against object, initial encounter; Y93.01 Activity, walking, marching and hiking; Z79.82 Long term (current) use of aspirin; Y92.9 Unspecified place or not applicable

== ENCOUNTER 2018-01-04 16:40 | Inpatient (IN) | payer MEDICARE, OTHER ==
[~2018-01-04 16:40] MED LIST changes: -ALIG4CAP PO; +ALPRAZolam 0.25 MG TAB PO; -ASPI81TA85 PO; -ASPI81TAEC PO; -BACITAB PO; -CALTCHW5 PO; -CARV12.5 PO; -CARV25TA PO; -FISH100049 PO; -GAVICHW5 PO; -HYDR12.55 PO; -LEVA1TAB2 PO; -MAGN400T2 PO; -METF10004 PO; -MOBI4TAB PO; +MOM 30ML SUSPENSION UDC PO; +ONDANSETRON 4 MG ORAL DISINTEGRATING TAB (Q0162 PER 1MG) PO; -PANT40TA2 PO; -PERCOCET PO; -POTA10CA PO; -PRIL20CA9 PO; +SALIVA SUBSTITUTE(MOUTHKOTE) BTL MT; -SERT-138 PO; -SIMV20TA2 PO; -SUCR1SS PO; -VITA2000 PO; -VITA250L PO; -VITA500T53 PO
[2018-01-04] MEDS: ACETAMINOPHEN 500 MG TAB PO ×2 (18:08→21:00)
[2018-01-04] MEDS: NS 1,000 ML IV (18:08)
[2018-01-04 18:13] LABS: HEMATOCRIT 22.5 % (36.0-47.0); HEMOGLOBIN 7.2 g/dl (12.0-15.5); MEAN CORPUSCULAR HEMOGLOBIN 31.4 pg (27.0-33.0); MEAN CORPUSCULAR VOLUME 98.3 fl (80.0-96.0); PLATELET COUNT, AUTOMATED 300 10^3/uL (150-450); RED BLOOD COUNT 2.29 10^6/uL (4.00-5.40); WHITE BLOOD COUNT 11.5 10^3/uL (4.0-10.0)
[2018-01-04 18:22] LABS: INR 1.04; PROTHROMBIN TIME 13.7 SECONDS (12.4-14.5)
[2018-01-04 18:23] LABS: PARTIAL THROMBOPLASTIN TIME 37.3 SECONDS (26.8-37.9)
[2018-01-04 19:21] LABS: KETONE, URINE AUTO RFX NEGATIVE (NEGATIVE); MUCUS, URINE RFX SMALL (NEGATIVE); NITRITE, URINE AUTO RFX NEGATIVE (NEGATIVE); RBC, URINE AUTO RFX 5 /HPF (0-3); SQUAM EPITHELIAL CELL UR AURFX 1 /HPF (0-6); WBC, URINE AUTO RFX 8 /HPF (0-3)
[2018-01-04 20:16] LABS: LEUKOCYTE ESTERASE UR AUTO RFX TRACE (NEGATIVE)
[2018-01-04 20:58] LABS: IMMEDIATE SPIN CROSSMATCH 1 1
[2018-01-04] MEDS: SENOKOT S TAB PO (21:02)
[2018-01-04] MEDS: SIMVASTATIN 20 MG TAB PO (21:02)
[2018-01-04] MEDS: LACTOBACILLUS ACIDOPHILUS CAP (BACID) PO (21:02)
[2018-01-04] MEDS: SERTRALINE 100 MG TAB PO (21:02)
[2018-01-04] MEDS: FERROUS SULFATE 325MG TAB PO (21:02)
[2018-01-04] MEDS: BACTRIM 160MG/800MG DS TAB PO (21:02)
[2018-01-04] MEDS: MAGNESIUM OXIDE 400 MG TAB (MAG-OX) PO (21:02)
[2018-01-04] MEDS: MORPHINE 15 MG SA TAB PO (21:03)
[2018-01-05 07:09] LABS: BASO % 0.4 % (0.0-1.0); EOS # 0.4 10^3/uL (0.0-0.50); EOS % 3.6 % (0.0-3.0); HEMOGLOBIN 8.5 g/dl (12.0-15.5); IMMATURE GRANULOCYTE % 1.4 % (0-3.0); LYMPH # 1.6 10^3/uL (1.5-4.5); LYMPH % 15.6 % (24.0-44.0); MEAN CORPUSCULAR HEMOGLOBIN 31.1 pg (27.0-33.0); MEAN CORPUSCULAR HGB CONC 32.7 g/dl (32.0-36.5); MEAN CORPUSCULAR VOLUME 95.2 fl (80.0-96.0); MONO # 0.7 10^3/uL (0.0-0.8); MONO % 6.2 % (0.0-5.0); NEUTROPHILS # 7.6 10^3/uL (1.8-7.7); NEUTROPHILS % 72.8 % (36.0-66.0); PLATELET COUNT, AUTOMATED 283 10^3/uL (150-450); RED BLOOD COUNT 2.73 10^6/uL (4.00-5.40); RED CELL DISTRIBUTION WIDTH 14.6 % (11.5-14.5); WHITE BLOOD COUNT 10.4 10^3/uL (4.0-10.0)
[2018-01-05 07:50] LABS: ALBUMIN 2.1 GM/DL (3.2-5.2); ALBUMIN/GLOBULIN RATIO 0.53 (1.00-1.93); ALKALINE PHOSPHATASE 112 U/L (45-117); ALT/SGPT 8 U/L (12-78); ANION GAP 6 MEQ/L (8-16); AST/SGOT 22 U/L (7-37); BILIRUBIN,TOTAL 0.5 MG/DL (0.2-1.0); BLOOD UREA NITROGEN 11 MG/DL (7-18); CALCIUM LEVEL 8.3 MG/DL (8.8-10.2); CARBON DIOXIDE LEVEL 28 MEQ/L (21-32); CHLORIDE LEVEL 104 MEQ/L (98-107); CREATININE FOR GFR 0.64 MG/DL (0.55-1.30); GLOMERULAR FILTRATION RATE > 60.0 (>45); GLUCOSE, FASTING 96 MG/DL (70-100); POTASSIUM SERUM 4.2 MEQ/L (3.5-5.1); SODIUM LEVEL 138 MEQ/L (136-145); TOTAL PROTEIN 6.1 GM/DL (6.4-8.2)
[2018-01-05] MEDS: CYANOCOBALAMIN 500 MCG TAB PO (07:50)
[2018-01-05] MEDS: FERROUS SULFATE 325MG TAB PO ×2 (07:50→20:22)
[2018-01-05] MEDS: VITAMIN D 1,000 INTERNATIONAL UNITS TABLET PO (07:50)
[2018-01-05] MEDS: ACETAMINOPHEN 500 MG TAB PO ×3 (07:50→20:21)
[2018-01-05] MEDS: LACTOBACILLUS ACIDOPHILUS CAP (BACID) PO ×2 (07:50→20:22)
[2018-01-05] MEDS: MORPHINE 15 MG SA TAB PO ×2 (07:51→20:22)
[2018-01-05] MEDS: MAGNESIUM OXIDE 400 MG TAB (MAG-OX) PO ×2 (07:51→20:22)
[2018-01-05] MEDS: BACTRIM 160MG/800MG DS TAB PO (07:52)
[2018-01-05] MEDS: SENOKOT S TAB PO ×2 (07:52→20:21)
[2018-01-05] MEDS: MIRALAX *UNIT DOSE* 17GM PACKET PO (07:52)
[2018-01-05] MEDS: PANTOPRAZOLE 40MG TAB (PROTONIX) PO (07:52)
[2018-01-05] MEDS: oxyCODONE 5MG TAB PO (10:28)
[2018-01-05] MEDS: SIMVASTATIN 20 MG TAB PO (20:21)
[2018-01-05] MEDS: SERTRALINE 100 MG TAB PO (20:21)
[2018-01-06] MEDS: oxyCODONE 5MG TAB PO ×2 (03:18→12:05)
[2018-01-06] MEDS: LACTOBACILLUS ACIDOPHILUS CAP (BACID) PO ×2 (08:11→20:13)
[2018-01-06] MEDS: VITAMIN D 1,000 INTERNATIONAL UNITS TABLET PO (08:12)
[2018-01-06] MEDS: PANTOPRAZOLE 40MG TAB (PROTONIX) PO (08:12)
[2018-01-06] MEDS: MORPHINE 15 MG SA TAB PO (08:12)
[2018-01-06] MEDS: SENOKOT S TAB PO ×2 (08:12→20:13)
[2018-01-06] MEDS: FERROUS SULFATE 325MG TAB PO ×2 (08:12→20:13)
[2018-01-06] MEDS: MAGNESIUM OXIDE 400 MG TAB (MAG-OX) PO ×2 (08:12→20:13)
[2018-01-06] MEDS: ACETAMINOPHEN 500 MG TAB PO ×3 (08:13→20:14)
[2018-01-06] MEDS: CYANOCOBALAMIN 500 MCG TAB PO (08:13)
[2018-01-06] MEDS: MIRALAX *UNIT DOSE* 17GM PACKET PO (08:13)
[2018-01-06] MEDS: METOCLOPRAMIDE 10 MG TAB PO (11:33)
[2018-01-06 12:23] LABS: KETONE, URINE AUTO RFX NEGATIVE (NEGATIVE); MUCUS, URINE RFX SMALL (NEGATIVE); NITRITE, URINE AUTO RFX NEGATIVE (NEGATIVE); RBC, URINE AUTO RFX 2 /HPF (0-3); SPECIFIC GRAVITY UR AUTO RFX 1.029 (1.002-1.035); SQUAM EPITHELIAL CELL UR AURFX 3 /HPF (0-6); WBC, URINE AUTO RFX 10 /HPF (0-3)
[2018-01-06 12:24] LABS: LEUKOCYTE ESTERASE UR AUTO RFX TRACE (NEGATIVE)
[2018-01-06] MEDS: BISACODYL 10 MG SUPP PR (18:21)
[2018-01-06] MEDS: SERTRALINE 100 MG TAB PO (20:13)
[2018-01-06] MEDS: SIMVASTATIN 20 MG TAB PO (20:13)
[2018-01-07] MEDS: oxyCODONE 5MG TAB PO ×3 (06:07→21:37)
[2018-01-07] MEDS: MAGNESIUM OXIDE 400 MG TAB (MAG-OX) PO ×2 (08:36→21:35)
[2018-01-07] MEDS: VITAMIN D 1,000 INTERNATIONAL UNITS TABLET PO (08:37)
[2018-01-07] MEDS: CYANOCOBALAMIN 500 MCG TAB PO (08:37)
[2018-01-07] MEDS: LACTOBACILLUS ACIDOPHILUS CAP (BACID) PO ×2 (08:37→21:35)
[2018-01-07] MEDS: PANTOPRAZOLE 40MG TAB (PROTONIX) PO (08:37)
[2018-01-07] MEDS: SENOKOT S TAB PO ×2 (08:37→21:00)
[2018-01-07] MEDS: ACETAMINOPHEN 500 MG TAB PO ×3 (08:37→21:37)
[2018-01-07] MEDS: FERROUS SULFATE 325MG TAB PO ×2 (08:37→21:35)
[2018-01-07] MEDS: MIRALAX *UNIT DOSE* 17GM PACKET PO (08:37)
[2018-01-07] MEDS: SIMVASTATIN 20 MG TAB PO (21:36)
[2018-01-07] MEDS: SERTRALINE 100 MG TAB PO (21:36)
[2018-01-08] MEDS: oxyCODONE 5MG TAB PO ×2 (04:07→12:44)
[2018-01-08] MEDS: PANTOPRAZOLE 40MG TAB (PROTONIX) PO (09:57)
[2018-01-08] MEDS: MAGNESIUM OXIDE 400 MG TAB (MAG-OX) PO ×2 (09:57→21:34)
[2018-01-08] MEDS: VITAMIN D 1,000 INTERNATIONAL UNITS TABLET PO (09:57)
[2018-01-08] MEDS: CYANOCOBALAMIN 500 MCG TAB PO (09:57)
[2018-01-08] MEDS: LACTOBACILLUS ACIDOPHILUS CAP (BACID) PO ×2 (09:57→21:34)
[2018-01-08] MEDS: FERROUS SULFATE 325MG TAB PO ×2 (09:57→21:34)
[2018-01-08] MEDS: MIRALAX *UNIT DOSE* 17GM PACKET PO (09:58)
[2018-01-08] MEDS: ACETAMINOPHEN 500 MG TAB PO ×3 (09:58→21:35)
[2018-01-08] MEDS: SENOKOT S TAB PO ×2 (09:58→21:00)
[2018-01-08] MEDS: SIMVASTATIN 20 MG TAB PO (21:34)
[2018-01-08] MEDS: SERTRALINE 100 MG TAB PO (21:34)
[2018-01-09] MEDS: oxyCODONE 5MG TAB PO (06:10)
[2018-01-09] MEDS: LACTOBACILLUS ACIDOPHILUS CAP (BACID) PO ×2 (09:26→20:44)
[2018-01-09] MEDS: CYANOCOBALAMIN 500 MCG TAB PO (09:26)
[2018-01-09] MEDS: FERROUS SULFATE 325MG TAB PO ×2 (09:27→20:44)
[2018-01-09] MEDS: ACETAMINOPHEN 500 MG TAB PO ×3 (09:27→20:45)
[2018-01-09] MEDS: VITAMIN D 1,000 INTERNATIONAL UNITS TABLET PO (09:27)
[2018-01-09] MEDS: MAGNESIUM OXIDE 400 MG TAB (MAG-OX) PO ×2 (09:27→20:44)
[2018-01-09] MEDS: PANTOPRAZOLE 40MG TAB (PROTONIX) PO (09:27)
[2018-01-09] MEDS: SENOKOT S TAB PO ×2 (09:28→20:38)
[2018-01-09] MEDS: MIRALAX *UNIT DOSE* 17GM PACKET PO (09:28)
[2018-01-09] MEDS: SIMVASTATIN 20 MG TAB PO (20:45)
[2018-01-09] MEDS: SERTRALINE 100 MG TAB PO (20:45)
[2018-01-10] MEDS: oxyCODONE 5MG TAB PO (01:27)
[2018-01-10] MEDS: FERROUS SULFATE 325MG TAB PO ×2 (08:36→20:42)
[2018-01-10] MEDS: ASPIRIN 81 MG ENTERIC TAB PO (08:37)
[2018-01-10] MEDS: SENOKOT S TAB PO ×2 (08:37→20:42)
[2018-01-10] MEDS: MAGNESIUM OXIDE 400 MG TAB (MAG-OX) PO ×2 (08:37→20:41)
[2018-01-10] MEDS: VITAMIN D 1,000 INTERNATIONAL UNITS TABLET PO (08:37)
[2018-01-10] MEDS: MIRALAX *UNIT DOSE* 17GM PACKET PO (08:37)
[2018-01-10] MEDS: ACETAMINOPHEN 500 MG TAB PO ×3 (08:37→20:42)
[2018-01-10] MEDS: PANTOPRAZOLE 40MG TAB (PROTONIX) PO (08:37)
[2018-01-10] MEDS: LACTOBACILLUS ACIDOPHILUS CAP (BACID) PO ×2 (08:37→20:42)
[2018-01-10] MEDS: CYANOCOBALAMIN 500 MCG TAB PO (08:37)
[2018-01-10] MEDS: SERTRALINE 100 MG TAB PO (20:42)
[2018-01-10] MEDS: SIMVASTATIN 20 MG TAB PO (20:42)
[2018-01-11] MEDS: SENOKOT S TAB PO (09:00)
[2018-01-11] MEDS: MIRALAX *UNIT DOSE* 17GM PACKET PO (09:00)
[2018-01-11] MEDS: PANTOPRAZOLE 40MG TAB (PROTONIX) PO (09:47)
[2018-01-11] MEDS: VITAMIN D 1,000 INTERNATIONAL UNITS TABLET PO (09:48)
[2018-01-11] MEDS: FERROUS SULFATE 325MG TAB PO ×2 (09:48→21:02)
[2018-01-11] MEDS: MAGNESIUM OXIDE 400 MG TAB (MAG-OX) PO ×2 (09:48→21:02)
[2018-01-11] MEDS: LACTOBACILLUS ACIDOPHILUS CAP (BACID) PO ×2 (09:48→21:01)
[2018-01-11] MEDS: CYANOCOBALAMIN 500 MCG TAB PO (09:48)
[2018-01-11] MEDS: ASPIRIN 81 MG ENTERIC TAB PO (09:48)
[2018-01-11] MEDS: ACETAMINOPHEN 500 MG TAB PO ×3 (09:49→21:02)
[2018-01-11] MEDS ORDERED: oxyCODONE 5MG TAB PO (11:00)
[2018-01-11] MEDS ORDERED: ALPRAZolam 0.25 MG TAB PO (11:00)
[2018-01-11] MEDS: SIMVASTATIN 20 MG TAB PO (21:02)
[2018-01-11] MEDS: SERTRALINE 100 MG TAB PO (21:02)
[2018-01-12 07:31] LABS: BASO # 0.1 10^3/uL (0.0-0.2); BASO % 0.8 % (0.0-1.0); EOS # 0.6 10^3/uL (0.0-0.50); EOS % 5.5 % (0.0-3.0); HEMATOCRIT 27.9 % (36.0-47.0); HEMOGLOBIN 8.9 g/dl (12.0-15.5); IMMATURE GRANULOCYTE % 1.1 % (0-3.0); LYMPH # 2.1 10^3/uL (1.5-4.5); LYMPH % 21.1 % (24.0-44.0); MEAN CORPUSCULAR HEMOGLOBIN 30.5 pg (27.0-33.0); MEAN CORPUSCULAR HGB CONC 31.9 g/dl (32.0-36.5); MEAN CORPUSCULAR VOLUME 95.5 fl (80.0-96.0); MONO # 0.5 10^3/uL (0.0-0.8); MONO % 4.8 % (0.0-5.0); NEUTROPHILS # 6.7 10^3/uL (1.8-7.7); NEUTROPHILS % 66.7 % (36.0-66.0); PLATELET COUNT, AUTOMATED 476 10^3/uL (150-450); RED BLOOD COUNT 2.92 10^6/uL (4.00-5.40); RED CELL DISTRIBUTION WIDTH 14.5 % (11.5-14.5)
[2018-01-12 07:42] LABS: ANION GAP 5 MEQ/L (8-16); BLOOD UREA NITROGEN 12 MG/DL (7-18); CALCIUM LEVEL 8.3 MG/DL (8.8-10.2); CARBON DIOXIDE LEVEL 28 MEQ/L (21-32); CHLORIDE LEVEL 107 MEQ/L (98-107); CREATININE FOR GFR 0.68 MG/DL (0.55-1.30); GLOMERULAR FILTRATION RATE > 60.0 (>45); GLUCOSE, FASTING 99 MG/DL (70-100); MAGNESIUM LEVEL 2.3 MG/DL (1.8-2.4); SODIUM LEVEL 140 MEQ/L (136-145)
[2018-01-12] MEDS: CYANOCOBALAMIN 500 MCG TAB PO (08:58)
[2018-01-12] MEDS: FERROUS SULFATE 325MG TAB PO ×2 (08:58→20:11)
[2018-01-12] MEDS: MAGNESIUM OXIDE 400 MG TAB (MAG-OX) PO (08:59)
[2018-01-12] MEDS: ASPIRIN 81 MG ENTERIC TAB PO (08:59)
[2018-01-12] MEDS: VITAMIN D 1,000 INTERNATIONAL UNITS TABLET PO (08:59)
[2018-01-12] MEDS: PANTOPRAZOLE 40MG TAB (PROTONIX) PO (08:59)
[2018-01-12] MEDS: ACETAMINOPHEN 500 MG TAB PO ×3 (08:59→20:11)
[2018-01-12] MEDS: LACTOBACILLUS ACIDOPHILUS CAP (BACID) PO ×2 (09:00→20:11)
[2018-01-12] MEDS: SERTRALINE 100 MG TAB PO (20:11)
[2018-01-12] MEDS: SIMVASTATIN 20 MG TAB PO (20:11)
[2018-01-13] MEDS: MAGNESIUM OXIDE 400 MG TAB (MAG-OX) PO (08:36)
[2018-01-13] MEDS: ACETAMINOPHEN 500 MG TAB PO ×3 (08:36→21:00)
[2018-01-13] MEDS: PANTOPRAZOLE 40MG TAB (PROTONIX) PO (08:37)
[2018-01-13] MEDS: LACTOBACILLUS ACIDOPHILUS CAP (BACID) PO ×2 (08:37→21:00)
[2018-01-13] MEDS: ASPIRIN 81 MG ENTERIC TAB PO (08:37)
[2018-01-13] MEDS: CYANOCOBALAMIN 500 MCG TAB PO (08:37)
[2018-01-13] MEDS: VITAMIN D 1,000 INTERNATIONAL UNITS TABLET PO (08:37)
[2018-01-13] MEDS: FERROUS SULFATE 325MG TAB PO ×2 (08:37→21:00)
[2018-01-13] MEDS: SERTRALINE 100 MG TAB PO (21:00)
[2018-01-13] MEDS: SIMVASTATIN 20 MG TAB PO (21:00)
[2018-01-14 07:43] LABS: HEMATOCRIT 28.5 % (36.0-47.0); HEMOGLOBIN 9.2 g/dl (12.0-15.5); MEAN CORPUSCULAR HEMOGLOBIN 30.9 pg (27.0-33.0); MEAN CORPUSCULAR HGB CONC 32.3 g/dl (32.0-36.5); MEAN CORPUSCULAR VOLUME 95.6 fl (80.0-96.0); PLATELET COUNT, AUTOMATED 469 10^3/uL (150-450); RED BLOOD COUNT 2.98 10^6/uL (4.00-5.40); RED CELL DISTRIBUTION WIDTH 14.8 % (11.5-14.5); WHITE BLOOD COUNT 10.6 10^3/uL (4.0-10.0)
[2018-01-14 08:08] LABS: ALBUMIN 2.6 GM/DL (3.2-5.2); ALBUMIN/GLOBULIN RATIO 0.72 (1.00-1.93); ALKALINE PHOSPHATASE 190 U/L (45-117); ALT/SGPT 9 U/L (12-78); ANION GAP 10 MEQ/L (8-16); AST/SGOT 17 U/L (7-37); BILIRUBIN,TOTAL 0.3 MG/DL (0.2-1.0); BLOOD UREA NITROGEN 13 MG/DL (7-18); CALCIUM LEVEL 8.1 MG/DL (8.8-10.2); CARBON DIOXIDE LEVEL 24 MEQ/L (21-32); CHLORIDE LEVEL 107 MEQ/L (98-107); CREATININE FOR GFR 0.79 MG/DL (0.55-1.30); FERRITIN 152 NG/ML (8-252); GLOMERULAR FILTRATION RATE > 60.0 (>45); GLUCOSE, FASTING 109 MG/DL (70-100); IRON (FE) 38 UG/DL (50-170); POTASSIUM SERUM 4.3 MEQ/L (3.5-5.1); SODIUM LEVEL 141 MEQ/L (136-145); TOTAL IRON BINDING CAPACITY 237 UG/DL (250-450); TOTAL PROTEIN 6.2 GM/DL (6.4-8.2)
[2018-01-14] MEDS: FERROUS SULFATE 325MG TAB PO ×2 (09:01→20:24)
[2018-01-14] MEDS: LACTOBACILLUS ACIDOPHILUS CAP (BACID) PO ×2 (09:01→20:24)
[2018-01-14] MEDS: ASPIRIN 81 MG ENTERIC TAB PO (09:02)
[2018-01-14] MEDS: ACETAMINOPHEN 500 MG TAB PO ×3 (09:02→20:25)
[2018-01-14] MEDS: CYANOCOBALAMIN 500 MCG TAB PO (09:02)
[2018-01-14] MEDS: VITAMIN D 1,000 INTERNATIONAL UNITS TABLET PO (09:02)
[2018-01-14] MEDS: MAGNESIUM OXIDE 400 MG TAB (MAG-OX) PO (09:02)
[2018-01-14] MEDS: PANTOPRAZOLE 40MG TAB (PROTONIX) PO (09:02)
[2018-01-14] MEDS: SERTRALINE 100 MG TAB PO (20:24)
[2018-01-14] MEDS: SIMVASTATIN 20 MG TAB PO (20:24)
[2018-01-15] MEDS: LACTOBACILLUS ACIDOPHILUS CAP (BACID) PO ×2 (09:13→20:37)
[2018-01-15] MEDS: FERROUS SULFATE 325MG TAB PO ×2 (09:14→20:37)
[2018-01-15] MEDS: ASPIRIN 81 MG ENTERIC TAB PO (09:14)
[2018-01-15] MEDS: MAGNESIUM OXIDE 400 MG TAB (MAG-OX) PO (09:14)
[2018-01-15] MEDS: PANTOPRAZOLE 40MG TAB (PROTONIX) PO (09:15)
[2018-01-15] MEDS: ACETAMINOPHEN 500 MG TAB PO ×3 (09:16→20:39)
[2018-01-15] MEDS: CYANOCOBALAMIN 500 MCG TAB PO (09:16)
[2018-01-15] MEDS: VITAMIN D 1,000 INTERNATIONAL UNITS TABLET PO (09:17)
[2018-01-15] MEDS: SERTRALINE 100 MG TAB PO (20:37)
[2018-01-15] MEDS: SIMVASTATIN 20 MG TAB PO (20:37)
[2018-01-16] MEDS: LACTOBACILLUS ACIDOPHILUS CAP (BACID) PO ×2 (08:21→20:57)
[2018-01-16] MEDS: CYANOCOBALAMIN 500 MCG TAB PO (08:21)
[2018-01-16] MEDS: ASPIRIN 81 MG ENTERIC TAB PO (08:21)
[2018-01-16] MEDS: VITAMIN D 1,000 INTERNATIONAL UNITS TABLET PO (08:21)
[2018-01-16] MEDS: PANTOPRAZOLE 40MG TAB (PROTONIX) PO (08:21)
[2018-01-16] MEDS: ACETAMINOPHEN 500 MG TAB PO ×3 (08:21→20:57)
[2018-01-16] MEDS: MAGNESIUM OXIDE 400 MG TAB (MAG-OX) PO (08:22)
[2018-01-16] MEDS: FERROUS SULFATE 325MG TAB PO ×2 (08:55→20:57)
[2018-01-16] MEDS: SERTRALINE 100 MG TAB PO (20:57)
[2018-01-16] MEDS: SIMVASTATIN 20 MG TAB PO (20:57)
[2018-01-17] MEDS: MAGNESIUM OXIDE 400 MG TAB (MAG-OX) PO (08:45)
[2018-01-17] MEDS: FERROUS SULFATE 325MG TAB PO ×2 (08:45→21:36)
[2018-01-17] MEDS: CYANOCOBALAMIN 500 MCG TAB PO (08:45)
[2018-01-17] MEDS: ACETAMINOPHEN 500 MG TAB PO ×3 (08:46→21:36)
[2018-01-17] MEDS: VITAMIN D 1,000 INTERNATIONAL UNITS TABLET PO (08:46)
[2018-01-17] MEDS: LACTOBACILLUS ACIDOPHILUS CAP (BACID) PO ×2 (08:46→21:36)
[2018-01-17] MEDS: PANTOPRAZOLE 40MG TAB (PROTONIX) PO (08:46)
[2018-01-17] MEDS: ASPIRIN 81 MG ENTERIC TAB PO (08:46)
[2018-01-17 12:14] LABS: VITAMIN B12 LEVEL > 2000 PG/ML (247-911)
[2018-01-17 12:15] LABS: FOLATE 8.3 NG/ML (>5.4)
[2018-01-17] MEDS: SERTRALINE 100 MG TAB PO (21:35)
[2018-01-17] MEDS: SIMVASTATIN 20 MG TAB PO (21:35)
[2018-01-18] MEDS: VITAMIN D 1,000 INTERNATIONAL UNITS TABLET PO (10:47)
[2018-01-18] MEDS: ACETAMINOPHEN 500 MG TAB PO (10:47)
[2018-01-18] MEDS: LACTOBACILLUS ACIDOPHILUS CAP (BACID) PO (10:48)
[2018-01-18] MEDS: CYANOCOBALAMIN 500 MCG TAB PO (10:48)
[2018-01-18] MEDS: FERROUS SULFATE 325MG TAB PO (10:48)
[2018-01-18] MEDS: ASPIRIN 81 MG ENTERIC TAB PO (10:48)
[2018-01-18] MEDS: MAGNESIUM OXIDE 400 MG TAB (MAG-OX) PO (10:49)
[2018-01-18] MEDS: PANTOPRAZOLE 40MG TAB (PROTONIX) PO (10:49)
== END 2018-01-18 13:00 | disposition home or self-care (01) | DRG 560 ==
LOC: M PM&R 16:40
PROC: 30233N1 Transfusion of Nonautologous Red Blood Cells into Peripheral Vein, Percutaneous Approach (ICD-10-PCS; principal; 2018-01-04)
DX: S32.13 Zone III fracture of sacrum (principal); D62 Acute posthemorrhagic anemia; N39.0 Urinary tract infection, site not specified; G61.81 Chronic inflammatory demyelinating polyneuritis; S52.92XD Unspecified fracture of left forearm, subsequent encounter for closed fracture with routine healing; S63.501D Unspecified sprain of right wrist, subsequent encounter; S43.401D Unspecified sprain of right shoulder joint, subsequent encounter; I10 Essential (primary) hypertension; B96.1 Klebsiella pneumoniae [K. pneumoniae] as the cause of diseases classified elsewhere; R68.2 Dry mouth, unspecified; E78.5 Hyperlipidemia, unspecified; E83.42 Hypomagnesemia; K21.9 Gastro-esophageal reflux disease without esophagitis; R11.2 Nausea with vomiting, unspecified; F41.9 Anxiety disorder, unspecified; R13.10 Dysphagia, unspecified; F32.9 Major depressive disorder, single episode, unspecified; K57.90 Diverticulosis of intestine, part unspecified, without perforation or abscess without bleeding; K44.9 Diaphragmatic hernia without obstruction or gangrene; K64.8 Other hemorrhoids; Y92.9 Unspecified place or not applicable; Z87.442 Personal history of urinary calculi; Z85.00 Personal history of malignant neoplasm of unspecified digestive organ; W01.0XXD Fall on same level from slipping, tripping and stumbling without subsequent striking against object, subsequent encounter; Z79.82 Long term (current) use of aspirin; Z79.899 Other long term (current) drug therapy; Z88.0 Allergy status to penicillin; Z90.49 Acquired absence of other specified parts of digestive tract; Z98.1 Arthrodesis status

== ENCOUNTER → 2018-03-23 | Outpatient (CLI) | payer MEDICARE, OTHER ==
[2018-03-23 18:25] LABS: ALBUMIN 3.7 GM/DL (3.2-5.2); ALBUMIN/GLOBULIN RATIO 0.95 (1.00-1.93); ALKALINE PHOSPHATASE 130 U/L (45-117); ALT/SGPT 23 U/L (12-78); ANION GAP 4 MEQ/L (8-16); AST/SGOT 12 U/L (7-37); BILIRUBIN,TOTAL 0.3 MG/DL (0.2-1.0); BLOOD UREA NITROGEN 19 MG/DL (7-18); CALCIUM LEVEL 9.2 MG/DL (8.8-10.2); CARBON DIOXIDE LEVEL 33 MEQ/L (21-32); CHLORIDE LEVEL 107 MEQ/L (98-107); CREATININE FOR GFR 1.02 MG/DL (0.55-1.30); GLOMERULAR FILTRATION RATE 57.2 (>45); GLUCOSE, FASTING 120 MG/DL (70-100); POTASSIUM SERUM 4.9 MEQ/L (3.5-5.1); SODIUM LEVEL 144 MEQ/L (136-145); TOTAL PROTEIN 7.6 GM/DL (6.4-8.2)
[2018-03-23 18:45] LABS: HEMATOCRIT 41.7 % (36.0-47.0); HEMOGLOBIN 13.3 g/dl (12.0-15.5); MEAN CORPUSCULAR HEMOGLOBIN 30.9 pg (27.0-33.0); MEAN CORPUSCULAR HGB CONC 31.9 g/dl (32.0-36.5); MEAN CORPUSCULAR VOLUME 96.8 fl (80.0-96.0); PLATELET COUNT, AUTOMATED 241 10^3/uL (150-450); RED BLOOD COUNT 4.31 10^6/uL (4.00-5.40); RED CELL DISTRIBUTION WIDTH 13.8 % (11.5-14.5); WHITE BLOOD COUNT 7.3 10^3/uL (4.0-10.0)
== END ==
LOC: M SMT 14:19
DX: C16.0 Malignant neoplasm of cardia (principal); D64.9 Anemia, unspecified
CPT/HCPCS: 80053

== ENCOUNTER → 2018-03-28 | Outpatient (CLI) | payer MEDICARE, OTHER ==
[~2018-03-28] MED LIST changes: -ALPRAZolam 0.25 MG TAB PO; +GASTROGRAFIN SOLUTION 30ML (Q9963) As Ordered; +ISOVUE-370 76% 100ML VIAL (Q9967) As Ordered; -MOM 30ML SUSPENSION UDC PO; -ONDANSETRON 4 MG ORAL DISINTEGRATING TAB (Q0162 PER 1MG) PO; -SALIVA SUBSTITUTE(MOUTHKOTE) BTL MT
== END ==
LOC: M RAD 10:47
DX: C16.0 Malignant neoplasm of cardia (principal); D64.9 Anemia, unspecified; Z98.890 Other specified postprocedural states
CPT/HCPCS: Q9963

== ENCOUNTER → 2018-04-14 | Outpatient (CLI) | payer MEDICARE, OTHER | LOC: M WHC 09:02 | DX: S52.592D Other fractures of lower end of left radius, subsequent encounter for closed fracture with routine healing (principal); X58.XXXD Exposure to other specified factors, subsequent encounter; Y92.89 Other specified places as the place of occurrence of the external cause; M85.851 Other specified disorders of bone density and structure, right thigh; M85.852 Other specified disorders of bone density and structure, left thigh | CPT/HCPCS: 77080 ==

== ENCOUNTER → 2018-05-17 | Outpatient (CLI) | payer MEDICARE, OTHER ==
[2018-05-17 19:06] LABS: ANION GAP 8 MEQ/L (8-16); BLOOD UREA NITROGEN 22 MG/DL (7-18); CARBON DIOXIDE LEVEL 28 MEQ/L (21-32); CHLORIDE LEVEL 107 MEQ/L (98-107); CREATININE FOR GFR 0.96 MG/DL (0.55-1.30); GLOMERULAR FILTRATION RATE > 60.0 (>45); GLUCOSE, FASTING 106 MG/DL (70-100); POTASSIUM SERUM 4.2 MEQ/L (3.5-5.1); SODIUM LEVEL 143 MEQ/L (136-145)
== END ==
LOC: M SMT 12:05
DX: E55.9 Vitamin D deficiency, unspecified (principal)
CPT/HCPCS: 82306

== ENCOUNTER → 2018-05-18 | Outpatient (CLI) | payer MEDICARE, OTHER | LOC: M WHC 08:52 | DX: Z12.31 Encounter for screening mammogram for malignant neoplasm of breast (principal) | CPT/HCPCS: 77067 ==

== ENCOUNTER → 2018-07-06 | Outpatient (REF) | payer MEDICARE, OTHER ==
[2018-07-06 14:15] LABS: FERRITIN 67 NG/ML (8-252); IRON (FE) 85 UG/DL (50-170); PERCENT SATURATION 24.4 % (13.2-45.0); TOTAL IRON BINDING CAPACITY 348 UG/DL (250-450)
== END ==
LOC: M LAB REF 13:10
DX: N18.3 Chronic kidney disease, stage 3 (moderate) (principal); D50.9 Iron deficiency anemia, unspecified
CPT/HCPCS: 83550

== ENCOUNTER → 2018-10-11 | Outpatient (CLI) | payer MEDICARE, OTHER ==
[~2018-10-11] MED LIST changes: +ALIG4CAP PO; +ALPR0.25 PO; +ASPI81TA85 PO; +ASPI81TAEC PO; +Acetaminophen Tab PO; +B-1210009 PO; +BACITAB PO; +CALTCHW5 PO; +CARV12.5 PO; +CARV25TA PO; +CYCL10TA PO; +DICL13PA TOP; +FERR1TAB8 PO; +FISH100049 PO; -GASTROGRAFIN SOLUTION 30ML (Q9963) As Ordered; +GAVICHW5 PO; +GLYCADSU PR; +HEPA50VL SC; +HYDR12.55 PO; -ISOVUE-370 76% 100ML VIAL (Q9967) As Ordered; +KLOR10TA76 PO; +LEVA1TAB2 PO; +MAGN400T2 PO; +METF10004 PO; +MILK120011 PO; +MOBI4TAB PO; +MORP15TASA PO; +MOUKOT60 MT; +ONDA4TAB6 PO; +ONDA4VLL IV; +PANT40TA3 PO; +PEG1POW PO; +PERC5TAB12 PO; +PERCOCET PO; +PRIL20CA9 PO; +SENN1TAB2 PO; +SERT-138 PO; +SIMV20TA2 PO; +SUCR1SS PO; +VITA2000 PO; +VITA250L PO; +VITA500T53 PO; +VITAD1000T PO
[2018-10-11 14:23] LABS: CALCIUM LEVEL 9.5 MG/DL (8.8-10.2); CREATININE FOR GFR 1.06 MG/DL (0.55-1.30); GLOMERULAR FILTRATION RATE 54.7 (>45); POTASSIUM SERUM 4.9 MEQ/L (3.5-5.1)
[2018-10-11 14:38] LABS: TOTAL 25(OH) VITAMIN D 39.1 NG/ML (30.0-100.0)
== END ==
LOC: M SMT 08:20
PROVIDERS: ATTEND Internal Medicine Endocrinology, Diabetes & Metabolism
DX: E55.9 Vitamin D deficiency, unspecified (principal); M81.0 Age-related osteoporosis without current pathological fracture

== ENCOUNTER → 2019-03-20 | Outpatient (CLI) | payer MEDICARE, OTHER ==
[~2019-03-20] MED LIST changes: -GLYCADSU PR; +HEPA1INJ23 SC; -HEPA50VL SC; +SANI2SUP PR; -SENN1TAB2 PO; +SENN1TAB40 PO; +VITA500T17 PO; -VITA500T53 PO
[2019-03-20 13:49] LABS: BASO # 0.1 10^3/uL (0.0-0.2); BASO % 1.2 % (0.0-1.0); EOS # 0.2 10^3/uL (0.0-0.50); EOS % 2.8 % (0.0-3.0); HEMATOCRIT 41.2 % (36.0-47.0); HEMOGLOBIN 13.5 g/dl (12.0-15.5); LYMPH # 2.3 10^3/uL (1.5-4.5); LYMPH % 35.1 % (24.0-44.0); MEAN CORPUSCULAR HEMOGLOBIN 32.3 pg (27.0-33.0); MEAN CORPUSCULAR HGB CONC 32.8 g/dl (32.0-36.5); MEAN CORPUSCULAR VOLUME 98.6 fl (80.0-96.0); MONO # 0.4 10^3/uL (0.0-0.8); MONO % 5.8 % (0.0-5.0); NEUTROPHILS # 3.6 10^3/uL (1.8-7.7); NEUTROPHILS % 54.8 % (36.0-66.0); PLATELET COUNT, AUTOMATED 182 10^3/uL (150-450); RED BLOOD COUNT 4.18 10^6/uL (4.00-5.40); WHITE BLOOD COUNT 6.5 10^3/uL (4.0-10.0)
[2019-03-20 13:54] LABS: ALBUMIN 3.6 GM/DL (3.2-5.2); BILIRUBIN,TOTAL 0.7 MG/DL (0.2-1.0); CALCIUM LEVEL 9.3 MG/DL (8.8-10.2); CREATININE FOR GFR 1.15 MG/DL (0.55-1.30); GLOMERULAR FILTRATION RATE 49.7 (>39); TOTAL PROTEIN 7.1 GM/DL (6.4-8.2)
== END ==
LOC: M SMT 11:28
PROVIDERS: ATTEND Internal Medicine Hematology & Oncology
DX: C16.0 Malignant neoplasm of cardia (principal); D64.9 Anemia, unspecified

== ENCOUNTER → 2019-03-24 | Outpatient (CLI) | payer MEDICARE, OTHER ==
[~2019-03-24] MED LIST changes: +GASTROGRAFIN SOLUTION 30ML (Q9963) As Ordered ONE; +ISOVUE-370 76% 100ML VIAL (Q9967) As Ordered ONE
--- NOTE | 2019-03-24 13:06 | REP ---
Clinical: History of gastric cancer. Technique: Axial contrast enhanced images from the thoracic inlet to the upper abdomen with coronal and sagittal re-formations using 100 ml Isovue 370 intravenous contrast material. Comparison: 03/28/2018. Findings: Elements of chronic linear scarring primarily noted in the right upper lung zone and left base remains stable. No acute pulmonary parenchymal consolidation, nodule or mass lesion. No pleural effusion. No pneumothorax. Tracheobronchial tree is patent. Postsurgical changes involving the mid medial mediastinum surgical clips suggest prior node resection. Surgical changes at the region of the gastroesophageal junction identified and stable. No obvious mass lesion, recurrence or metastatic disease noted. Thoracic aorta, pulmonary vasculature and heart/pericardium appear normal. Musculoskeletal structures are intact. Limited upper abdomen demonstrates normal bilateral adrenal glands and evidence for prior cholecystectomy. Impression: 1. Chronic stable changes with scattered linear scarring. No acute mediastinal or pleuroparenchymal process appreciated. No evidence for metastatic disease. 2. Postsurgical changes in the mid mediastinum and in the region of the gastroesophageal junction remains stable and without evidence for recurrence or mass lesion. Electronically Signed by Reji Puente MD 03/24/2019 12:57 P
--- NOTE | 2019-03-24 13:12 | REP ---
Clinical: History of gastric cancer. Technique: Axial contrast enhanced images from the lung bases to the pubic symphysis using oral (per protocol) and 100 ml Isovue 370 intravenous contrast material with delayed images of the abdomen as well as coronal and sagittal re-formations. Comparison: 03/28/2018. Findings: Postsurgical changes are identified at the region of the gastroesophageal junction/proximal stomach consistent with the given history and stable as compared to prior examination. Liver, spleen, pancreas, and bilateral adrenal glands are relatively normal / stable. Evidence for prior cholecystectomy with compensatory biliary ductal dilatation noted. Prominent pancreatic duct and soft tissue adjacent to the ampulla at the level of the duodenum with evidence for moderate adjacent duodenal diverticulum remain stable. Kidneys demonstrate age-related cortical atrophic changes and small stable cysts. Small and large bowel without obstruction or acute inflammatory process. Normal appendix identified in the right lower quadrant. Colonic and sigmoid diverticulosis noted without acute diverticulitis. Pelvis demonstrates normal bladder and age-appropriate uterus/adnexa. 1.3 cm fat containing periumbilical hernia again noted and unchanged. Musculoskeletal structures demonstrate stable degenerative and postoperative changes. No ascites. No free air. No obvious adenopathy. Impression: 1. Stable appearance to the postsurgical changes involving the proximal stomach at the gastroesophageal junction level. No evidence for recurrence or metastatic disease. 2. Chronic stable changes as described above. 3. No acute abdominopelvic pathology appreciated. No ascites. No focal inflammatory stranding. No adenopathy. Electronically Signed by Reji Puente MD 03/24/2019 01:04 P
== END ==
LOC: M RAD 10:24
PROVIDERS: ATTEND Internal Medicine Hematology & Oncology
DX: Z85.028 Personal history of other malignant neoplasm of stomach (principal)
CPT/HCPCS: 71260; 74177; Q9963; Q9967

== ENCOUNTER → 2019-06-22 | Outpatient (CLI) | payer MEDICARE, OTHER ==
[~2019-06-22] MED LIST changes: +CHOL100029 PO; -GASTROGRAFIN SOLUTION 30ML (Q9963) As Ordered ONE; -ISOVUE-370 76% 100ML VIAL (Q9967) As Ordered ONE; +SENN-53 PO; -SENN1TAB40 PO; -SIMV20TA2 PO; +SIMV20TA22 PO; -VITAD1000T PO
== END ==
LOC: M SMT 09:14
PROVIDERS: ATTEND Internal Medicine Endocrinology, Diabetes & Metabolism
DX: E55.9 Vitamin D deficiency, unspecified (principal)

== ENCOUNTER → 2019-09-15 | Outpatient (CLI) | payer MEDICARE, OTHER ==
--- NOTE | 2019-09-15 12:14 | REPMRS ---
Patient History The patient states she has not had a clinical breast exam in over a year. Family history of breast cancer at age 51 in sister, colorectal cancer at age 50 or over in father. No Hormone Replacement Therapy Digital Woman Screen Mammo: September 15, 2019 - Exam #: [id number] Bilateral CC and MLO view(s) were taken. Technologist: Makayla Cleveland, Technologist Prior study comparison: May 18, 2018, bilateral digital woman screen mammo performed at [facility]. May 17, 2017, digital woman screen mammo performed at [facility]. May 11, 2016[facility] FINDINGS: There are scattered fibroglandular densities. There has been no change in the appearance of the mammogram from the prior studies. There is a mild amount of scattered fibroglandular density which is fairly symmetric. There is no interval development of dominant mass, architectural distortion, or grouped microcalcification suggestive of malignancy. 3-D tomosynthesis shows no additional findings. Assessment: BI-RADS/ACR category 1 mammogram. Negative Mammogram. Recommendation Routine screening mammogram of both breasts in 1 year (for women over age 40). This patient's Lifetime Breast Cancer Risk is estimated at 7.8 %. This mammogram was interpreted with the aid of an FDA-approved computer-aided dectection system. Electronically Signed By: Eligio Lopez MD 09/15/19 [id number]
== END ==
LOC: M WHC 10:51
PROVIDERS: ATTEND Internal Medicine
DX: Z12.31 Encounter for screening mammogram for malignant neoplasm of breast (principal)

== ENCOUNTER → 2019-12-11 | Outpatient (CLI) | payer MEDICARE, OTHER ==
[2019-12-11 12:04] LABS: CALCIUM LEVEL 9.9 MG/DL (8.8-10.2)
[2019-12-11 12:18] LABS: TOTAL 25(OH) VITAMIN D 62.6 NG/ML (30.0-100.0)
== END ==
LOC: M PLALAB 10:34
PROVIDERS: ATTEND Nurse Practitioner Family
DX: M81.0 Age-related osteoporosis without current pathological fracture (principal)

== ENCOUNTER → 2019-12-11 | Outpatient (CLI) | payer MEDICARE, OTHER ==
--- NOTE | 2019-12-11 11:03 | REP ---
RENAL ULTRASOUND: Real-time sonographic of the kidneys performed. Both kidneys demonstrate mild atrophy with increased echotexture suggesting medical renal disease. Right kidney measures 8.3 x 4.0 x 4.9 cm and left kidney 7.7 x 4.4 x 5.3 cm. There is no hydronephrosis or mass identified. IMPRESSION: Mild bilateral atrophy with increased echotexture suggesting medical renal disease. No hydronephrosis. Electronically Signed by Darryl Lea MD 12/11/2019 06:06 P
== END ==
LOC: M RAD 10:00
PROVIDERS: ATTEND Internal Medicine Nephrology
DX: N18.3 Chronic kidney disease, stage 3 (moderate) (principal); M81.0 Age-related osteoporosis without current pathological fracture

== ENCOUNTER → 2020-04-01 | Outpatient (CLI) | payer MEDICARE, OTHER ==
[~2020-04-01] MED LIST changes: +CYCL-707 PO; -CYCL10TA PO
[2020-04-01 11:21] LABS: HEMATOCRIT 42.5 % (36.0-47.0); HEMOGLOBIN 13.3 g/dl (12.0-15.5); MEAN CORPUSCULAR HEMOGLOBIN 31.2 pg (27.0-33.0); MEAN CORPUSCULAR HGB CONC 31.3 g/dl (32.0-36.5); MEAN CORPUSCULAR VOLUME 99.8 fl (80.0-96.0); PLATELET COUNT, AUTOMATED 169 10^3/uL (150-450); RED BLOOD COUNT 4.26 10^6/uL (4.00-5.40); WHITE BLOOD COUNT 7.1 10^3/uL (4.0-10.0)
[2020-04-01 11:34] LABS: ALBUMIN 3.6 GM/DL (3.2-5.2); BILIRUBIN,TOTAL 0.5 MG/DL (0.2-1.0); CALCIUM LEVEL 9.2 MG/DL (8.8-10.2); CREATININE FOR GFR 1.04 MG/DL (0.55-1.30); GLOMERULAR FILTRATION RATE 55.6 (>39); POTASSIUM SERUM 5.2 MEQ/L (3.5-5.1); TOTAL PROTEIN 7.2 GM/DL (6.4-8.2)
== END ==
LOC: M PLALAB 08:52
PROVIDERS: ATTEND Internal Medicine Hematology & Oncology
DX: C16.0 Malignant neoplasm of cardia (principal); D64.9 Anemia, unspecified

== ENCOUNTER → 2020-04-03 | Outpatient (CLI) | payer MEDICARE, OTHER ==
[~2020-04-03] MED LIST changes: -ASPI81TA85 PO; +ASPI81TA86 PO; +GASTROGRAFIN SOLUTION 30ML (Q9963) As Ordered ONE; +ISOVUE-370 76% 100ML VIAL As Ordered ONE; +PANT40TA29 PO; -PANT40TA3 PO
--- NOTE | 2020-04-04 05:42 | REP ---
REASON: Followup tumor. CONTRAST: 100 mL Isovue-370. COMPARISON: 03/24/2019, the latest prior. For description of the lung bases, see CT chest report made same day. The liver, spleen, pancreas, adrenal glands, and kidneys are unchanged. The abdominal aorta and para-aortic regions are unchanged. The bowel loops and their mesenteries are unchanged. Postoperative change is again seen in the GE junction, status quo. There is no free fluid or free air in the abdomen or pelvis. No intra-abdominal or intrapelvic mass or adenopathy has developed. There is no change in the osseous structures. IMPRESSION: Stable CT examination of the abdomen and pelvis. There is no evidence of acute disease. Electronically Signed by Bruce Caruso DO 04/04/2020 04:35 P
--- NOTE | 2020-04-04 05:45 | REP ---
REASON: Followup tumor. COMPARISON: Multiple, latest 03/24/2019. CONTRAST: 100 mL Isovue-370. The mediastinum and pulmonary brooks are unchanged. No mass or adenopathy has developed. There are no pleural or pericardial effusions. Postoperative change is again seen in the paraesophageal region, status quo. Bone window technique throughout the examination shows no significant change in the appearance of the imaged osseous structures. Evaluation of the lung castillo shows stable chronic changes. There is no new abnormal nodule, mass, or opacities. IMPRESSION: Stable CT findings, as described above. Electronically Signed by Bruce Caruso DO 04/04/2020 04:35 P
== END ==
LOC: M RAD 12:57
PROVIDERS: ATTEND Internal Medicine Hematology & Oncology
DX: C16.0 Malignant neoplasm of cardia (principal); D64.9 Anemia, unspecified
CPT/HCPCS: 71260; 74177; Q9963; Q9967

== ENCOUNTER → 2020-06-04 | Outpatient (CLI) | payer MEDICARE, OTHER ==
[~2020-06-04] MED LIST changes: -GASTROGRAFIN SOLUTION 30ML (Q9963) As Ordered ONE; -ISOVUE-370 76% 100ML VIAL As Ordered ONE
--- NOTE | 2020-06-20 14:01 | DEXA ---
AP SPINE L1 -L3 1.041 -1.2 0.5 LT FEMUR TOTAL 0.737 -2.2 -0.6 LT NECK 0.721 -2.3 -0.5 RT FEMUR TOTAL 0.758 -2.0 -0.5 RT NECK 0.717 -2.3 -0.6 TOTAL BODY TOTAL OTHER COMMENTS: There is low bone density of the spine and hips. The density of the spine is increased 14.5% since 04/14/2018. The increased density of the spine does represent significant change. The increased density of the left hip does represent significant change. The increased density of the right hip does represent significant change. The density of the left hip has decreased 33% since the initial exam on 12/29/2002. The density of the left hip has increased 4.7% since the most recent exam on 04/14/2018. The density of the right hip has decreased 24% since initial exam on 12/29/2002. The density of the right hip has increased 10.3% since most recent exam on 04/14/2018. FOLLOW-UP: Recommendation for the next bone density exam: 2 years. TERA
== END ==
LOC: M WHC 11:29
PROVIDERS: ATTEND Internal Medicine Endocrinology, Diabetes & Metabolism
DX: M81.0 Age-related osteoporosis without current pathological fracture (principal)

== ENCOUNTER → 2020-06-18 | Outpatient (REF) | payer MEDICARE, OTHER | LOC: M LAB REF 16:23 | PROVIDERS: ATTEND Nurse Practitioner Adult Health | DX: N18.3 Chronic kidney disease, stage 3 (moderate) (principal) ==

== ENCOUNTER → 2020-08-28 | Outpatient (REF) | payer MEDICARE, OTHER ==
[2020-08-28 18:03] LABS: PERCENT SATURATION 25.2 % (13.2-45.0)
== END ==
LOC: M LAB REF 16:59
PROVIDERS: ATTEND Internal Medicine Nephrology
DX: D50.9 Iron deficiency anemia, unspecified (principal)

== ENCOUNTER → 2020-09-03 | Outpatient (CLI) | payer MEDICARE, OTHER | LOC: M PLALAB 13:17 | PROVIDERS: ATTEND Nurse Practitioner Family | DX: M81.0 Age-related osteoporosis without current pathological fracture (principal) ==

== ENCOUNTER → 2020-09-16 | Outpatient (CLI) | payer MEDICARE, OTHER ==
--- NOTE | 2020-09-16 10:41 | REPMRS ---
Patient History Patient is postmenopausal and has history of other cancer at age 64. Family history of breast cancer at age 51 in sister, colorectal cancer at age 50 or over in father, pancreatic cancer at age 65 in brother. No Hormone Replacement Therapy 3D TOMOSYNTHESIS WAS PERFORMED. The [facility] lifetime risk for breast cancer is 7.4%. Volpara breast density a. Digital Woman Screen Mammo: September 16, 2020 - Exam #: [id number] Bilateral CC and MLO view(s) were taken. Technologist: Makayla Cleveland, Technologist Prior study comparison: September 15, 2019, bilateral digital woman screen mammo performed at [facility]. May 18, 2018, bilateral digital woman screen mammo performed at [facility]. FINDINGS: There are scattered fibroglandular densities. There has been no change in the appearance of the mammogram from the prior studies. There is a mild amount of residual fibroglandular tissue which is fairly symmetric. There is no interval development of dominant mass, architectural distortion, or clustered microcalcification suggestive of malignancy. Assessment: BI-RADS/ACR category 1 mammogram. Negative Mammogram. Recommendation Routine screening mammogram in 1 year (for women over age 40). This mammogram was interpreted with the aid of an FDA-approved computer-aided dectection system. Electronically Signed By: Darryl Lea MD 09/16/20 [id number]
== END ==
LOC: M WHC 09:53
PROVIDERS: ATTEND Nurse Practitioner Adult Health
DX: Z12.31 Encounter for screening mammogram for malignant neoplasm of breast (principal); Z85.9 Personal history of malignant neoplasm, unspecified; Z80.3 Family history of malignant neoplasm of breast; Z80.0 Family history of malignant neoplasm of digestive organs

== ENCOUNTER → 2020-09-28 | Outpatient (CLI) | payer MEDICARE, OTHER ==
[~2020-09-28] MED LIST changes: +CALC-190 PO; +CVS1CAP2 PO; +D31000TA2 PO; +ECOT81TA5 PO; +FORT600S SQ; +MAGN400C PO; +METO1TAB32 PO; +OMEP-221 PO; +POTA1TAB14 PO
== END ==
LOC: M LABSMTC 10:21
PROVIDERS: ATTEND Anesthesiology
DX: Z01.812 Encounter for preprocedural laboratory examination (principal); Z20.828 Contact with and (suspected) exposure to other viral communicable diseases

== ENCOUNTER 2020-10-03 06:32 | Day surgery (SDC) | payer MEDICARE, OTHER ==
[~2020-10-03] VITALS: Ht 152.4 cm; Wt 67.6 kg
[2020-10-03] MEDS ORDERED: DUOVISC (0.50ML VISCOAT/0.55ML PROVISC) OPHTH KIT As Ordered ONE (06:42)
[2020-10-03] MEDS ORDERED: POVIDONE-IODINE 5% OPHTH PREP SOL 30ML As Ordered ONE (06:42)
[2020-10-03] MEDS ORDERED: BSS IRR 500ML/OMIDRIA 4ML IRR BAG (OR ONLY) As Ordered ONE (06:46)
[2020-10-03] MEDS ORDERED: PROPARACAINE 0.5% OPHTH SOL 15ML OS ONE (07:00)
[2020-10-03] MEDS ORDERED: OFLOXACIN 0.3 % (OCUFLOX) OPTH SOL 5ML OS ONE (07:00)
[2020-10-03] MEDS ORDERED: PHENYLEPHRINE 2.5% OPHTH SOL 2ML OS ONE (07:00)
[2020-10-03] MEDS ORDERED: TROPICAMIDE 1% OPHTH SOLN 2ML OS ONE (07:00)
[2020-10-03] MEDS ORDERED: fentaNYL 100 MCG/2 ML INJECTION (J3010) As Ordered ONE (07:11)
[2020-10-03] MEDS ORDERED: MIDAZOLAM INJ 2MG/2ML VIAL (J2250 PER 1MG) As Ordered ONE (07:12)
[2020-10-03 08:15] VITALS: BP 125/72
--- NOTE | 2020-10-04 09:02 | RO ---
OPERATIVE NOTE DATE OF OPERATION: 10/03/2020 PREOPERATIVE DIAGNOSIS: 1. Visually significant nuclear sclerotic cataract, left eye. POSTOPERATIVE DIAGNOSIS: 1. Visually significant nuclear sclerotic cataract, left eye. PROCEDURE: 1. Cataract extraction with use of phacoemulsification, and placement of intraocular lens, [id number], 26.0 D, left eye. SURGEON: Cedrick Pemberton DO ANESTHESIA: Local (Omidria with MAC) COMPLICATIONS: None POSTOPERATIVE CONDITION: Stable INDICATIONS FOR SURGERY: 1. Blurred vision affecting patient's activities of daily living. DESCRIPTION OF PROCEDURE: The patient was seen in the preoperative area and properly identified. The correct operative eye was identified and marked. The patient received topical anesthetic, antibiotics, and topical dilating drops. The patient was then transferred to the operating room. The correct side was re-identified and a time-out was performed. The eye was prepped and draped in a sterile fashion. The eyelids were isolated with Tegaderm tape and the lids were held open with an adjustable speculum. A 1.0mm paracentesis incision was made. Omidria was then injected into the anterior chamber. Viscoelastic was then injected into the anterior chamber through the paracentesis. Using a 2.4mm sharp-tipped keratome, the anterior chamber was entered via a temporal clear cornea incision. A continuous curvilinear capsulorrhexis was created with Utrata forceps. Hydrodissection was performed with BSS on a blunt cannula until the nucleus was able to rotate freely. The crystalline lens was phacoemulsified and aspirated. Irrigation/aspiration was used to remove the cortical material Cohesive viscoelastic was placed into the capsular bag to deepen it. The implant was placed into the capsular bag and allowed to unfold. Placement was confirmed by visualizing the anterior capsulorrhexis. Irrigation/aspiration was used to remove the viscoelastic. The clear corneal incision was hydrated with BSS on a blunt cannula. The lens was well positioned. Intracameral antibiotic was injected into the anterior chamber. The incisions were then tested for leaks and found to be negative. The eye was then palpated for appropriate pressure and adjusted accordingly with BSS. The eyelid speculum was then carefully removed. A shield was placed over the eye. The patient tolerated the procedure well and was discharge to the recovery unit in a stable condition. TERA
== END 2020-10-03 08:30 | disposition home or self-care (01) ==
LOC: M SDC 06:32
PROVIDERS: ATTEND Ophthalmology
DX: H25.12 Age-related nuclear cataract, left eye (principal); I10 Essential (primary) hypertension; E78.5 Hyperlipidemia, unspecified; K21.9 Gastro-esophageal reflux disease without esophagitis; D64.9 Anemia, unspecified; K57.92 Diverticulitis of intestine, part unspecified, without perforation or abscess without bleeding; Z85.09 Personal history of malignant neoplasm of other digestive organs; Z79.899 Other long term (current) drug therapy; F41.9 Anxiety disorder, unspecified; Z88.0 Allergy status to penicillin; I25.2 Old myocardial infarction
CPT/HCPCS: 66984; J1097; J2250; J3010; V2632

== ENCOUNTER → 2020-10-05 | Outpatient (CLI) | payer MEDICARE, OTHER | LOC: M LABSMTC 08:58 | PROVIDERS: ATTEND Anesthesiology | DX: Z01.812 Encounter for preprocedural laboratory examination (principal); Z20.822 Contact with and (suspected) exposure to COVID-19 ==

== ENCOUNTER 2020-10-10 08:28 | Day surgery (SDC) | payer MEDICARE, OTHER ==
[~2020-10-10] VITALS: Ht 152.4 cm; Wt 67.6 kg
[~2020-10-10 08:28] MED LIST changes: +BSS IRR 500ML/OMIDRIA 4ML IRR BAG (OR ONLY) As Ordered ONE; +CEFUROXIME 1MG/0.1ML INTRACAMERAL INJ As Ordered ONE; +DUOVISC (0.50ML VISCOAT/0.55ML PROVISC) OPHTH KIT As Ordered ONE; +MIDAZOLAM INJ 2MG/2ML VIAL (J2250 PER 1MG) As Ordered ONE; +OFLOXACIN 0.3 % (OCUFLOX) OPTH SOL 5ML OD ONE; +PHENYLEPHRINE 2.5% OPHTH SOL 2ML OD ONE; +POVIDONE-IODINE 5% OPHTH PREP SOL 30ML As Ordered ONE; +PROPARACAINE 0.5% OPHTH SOL 15ML OD ONE; +TROPICAMIDE 1% OPHTH SOLN 2ML OD ONE; +fentaNYL 100 MCG/2 ML INJECTION (J3010) As Ordered ONE
--- OUTSIDE RECORDS SUMMARY | 2020-10-10 08:48 | CCD ---
Author Author [facility] Organization [facility] Address Unknown Phone Unavailable Care Team Providers Care Automotive Glass Installer Name Role Phone SCIARRINO, CHUYITA AIRPLANE CLEANER Unavailable Unavailable SCIARRINO, CHUYITA AIRPLANE CLEANER Unavailable Unavailable SCIARRINO, CHUYITA AIRPLANE CLEANER Unavailable Unavailable SCIARRINO, CHUYITA AIRPLANE CLEANER Unavailable Unavailable SCIARRINO, CHUYITA AIRPLANE CLEANER Unavailable Unavailable SCIARRINO, CHUYITA AIRPLANE CLEANER Unavailable Unavailable SCIARRINO, CHUYITA AIRPLANE CLEANER Unavailable Unavailable SCIARRINO, CHUYITA AIRPLANE CLEANER Unavailable Unavailable SCIARRINO, CHUYITA AIRPLANE CLEANER Unavailable Unavailable SCIARRINO, CHUYITA AIRPLANE CLEANER Unavailable Unavailable SCIARRINO, CHUYITA AIRPLANE CLEANER Unavailable Unavailable SCIARRINO, CHUYITA AIRPLANE CLEANER Unavailable Unavailable SCIARRINO, CHUYITA AIRPLANE CLEANER Unavailable Unavailable SCIARRINO, CHUYITA AIRPLANE CLEANER Unavailable Unavailable SCIARRINO, CHUYITA AIRPLANE CLEANER Unavailable Unavailable SCIARRINO, CHUYITA AIRPLANE CLEANER Unavailable Unavailable SCIARRINO, CHUYITA AIRPLANE CLEANER Unavailable Unavailable SCIARRINO, CHUYITA AIRPLANE CLEANER Unavailable Unavailable SCIARRINO, CHUYITA AIRPLANE CLEANER Unavailable Unavailable SCIARRINO, CHUYITA AIRPLANE CLEANER Unavailable Unavailable SCIARRINO, CHUYITA AIRPLANE CLEANER Unavailable Unavailable SCIARRINO, CHUYITA AIRPLANE CLEANER Unavailable Unavailable COOK, B ABDI COMMERCIAL PROJECT MANAGER Unavailable Unavailable COOK, B ABDI COMMERCIAL PROJECT MANAGER Unavailable Unavailable COOK, B ABDI COMMERCIAL PROJECT MANAGER Unavailable Unavailable COOK, B ABDI COMMERCIAL PROJECT MANAGER Unavailable Unavailable COOK, B ABDI COMMERCIAL PROJECT MANAGER Unavailable Unavailable COOK, B ABDI COMMERCIAL PROJECT MANAGER Unavailable Unavailable COOK, B ABDI COMMERCIAL PROJECT MANAGER Unavailable Unavailable COOK, B ABDI COMMERCIAL PROJECT MANAGER Unavailable Unavailable COOK, B ABDI COMMERCIAL PROJECT MANAGER Unavailable Unavailable COOK, B ABDI COMMERCIAL PROJECT MANAGER Unavailable Unavailable COOK, B ABDI COMMERCIAL PROJECT MANAGER Unavailable Unavailable COOK, B ABDI COMMERCIAL PROJECT MANAGER Unavailable Unavailable COOK, B ABDI COMMERCIAL PROJECT MANAGER Unavailable Unavailable COOK, B ABDI COMMERCIAL PROJECT MANAGER Unavailable Unavailable COOK, B ABDI COMMERCIAL PROJECT MANAGER Unavailable Unavailable COOK, B ABDI COMMERCIAL PROJECT MANAGER Unavailable Unavailable COOK, B ABDI COMMERCIAL PROJECT MANAGER Unavailable Unavailable COOK, B ABDI COMMERCIAL PROJECT MANAGER Unavailable Unavailable COOK, B ABDI COMMERCIAL PROJECT MANAGER Unavailable Unavailable COOK, B ABDI COMMERCIAL PROJECT MANAGER Unavailable Unavailable COOK, B ABDI COMMERCIAL PROJECT MANAGER Unavailable Unavailable COOK, B ABDI COMMERCIAL PROJECT MANAGER Unavailable Unavailable COOK, B ABDI COMMERCIAL PROJECT MANAGER Unavailable Unavailable COOK, B ABDI COMMERCIAL PROJECT MANAGER Unavailable Unavailable COOK, B ABDI COMMERCIAL PROJECT MANAGER Unavailable Unavailable COOK, B ABDI COMMERCIAL PROJECT MANAGER Unavailable Unavailable COOK, B ABDI COMMERCIAL PROJECT MANAGER Unavailable Unavailable COOK, B ABDI COMMERCIAL PROJECT MANAGER Unavailable Unavailable COOK, B ABDI COMMERCIAL PROJECT MANAGER Unavailable Unavailable COOK, B ABDI COMMERCIAL PROJECT MANAGER Unavailable Unavailable COOK, B ABDI COMMERCIAL PROJECT MANAGER Unavailable Unavailable COOK, B ABDI COMMERCIAL PROJECT MANAGER Unavailable Unavailable COOK, B ABDI COMMERCIAL PROJECT MANAGER Unavailable Unavailable COOK, B ABDI COMMERCIAL PROJECT MANAGER Unavailable Unavailable COOK, B ABDI COMMERCIAL PROJECT MANAGER Unavailable Unavailable COOK, B ABDI COMMERCIAL PROJECT MANAGER Unavailable Unavailable COOK, B ABDI COMMERCIAL PROJECT MANAGER Unavailable Unavailable COOK, B ABDI COMMERCIAL PROJECT MANAGER Unavailable Unavailable COOK, B ABDI COMMERCIAL PROJECT MANAGER Unavailable Unavailable COOK, B ABDI COMMERCIAL PROJECT MANAGER Unavailable Unavailable COOK, B ABDI COMMERCIAL PROJECT MANAGER Unavailable Unavailable COOK, B ABDI COMMERCIAL PROJECT MANAGER Unavailable Unavailable COOK, B ABDI COMMERCIAL PROJECT MANAGER Unavailable Unavailable COOK, B ABDI COMMERCIAL PROJECT MANAGER Unavailable Unavailable COOK, B ABDI COMMERCIAL PROJECT MANAGER Unavailable Unavailable COOK, B ABDI COMMERCIAL PROJECT MANAGER Unavailable Unavailable COOK, B ABDI COMMERCIAL PROJECT MANAGER Unavailable Unavailable COOK, B ABDI COMMERCIAL PROJECT MANAGER Unavailable Unavailable COOK, B ABDI COMMERCIAL PROJECT MANAGER Unavailable Unavailable COOK, B ABDI COMMERCIAL PROJECT MANAGER Unavailable Unavailable COOK, B ABDI COMMERCIAL PROJECT MANAGER Unavailable Unavailable COOK, B ABDI COMMERCIAL PROJECT MANAGER Unavailable Unavailable COOK, B ABDI COMMERCIAL PROJECT MANAGER Unavailable Unavailable COOK, B ABDI COMMERCIAL PROJECT MANAGER Unavailable Unavailable COOK, B ABDI COMMERCIAL PROJECT MANAGER Unavailable Unavailable COOK, B ADBI COMMERCIAL PROJECT MANAGER Unavailable Unavailable COOK, B ABDI COMMERCIAL PROJECT MANAGER Unavailable Unavailable COOK, B ABDI COMMERCIAL PROJECT MANAGER Unavailable Unavailable COOK, B ABDI COMMERCIAL PROJECT MANAGER Unavailable Unavailable COOK, B ABDI COMMERCIAL PROJECT MANAGER Unavailable Unavailable COOK, B ABDI COMMERCIAL PROJECT MANAGER Unavailable Unavailable COOK, B ABDI COMMERCIAL PROJECT MANAGER Unavailable Unavailable COOK, B ABDI COMMERCIAL PROJECT MANAGER Unavailable Unavailable SARAH, Grace Dent ANP Unavailable Unavailable SARAH, J Jailene ANP Unavailable Unavailable SARAH, J Jailene ANP Unavailable Unavailable SARAH, J Jailene ANP Unavailable Unavailable SARAH, J Jailene ANP Unavailable Unavailable SARAH, J Jailene ANP Unavailable Unavailable SAARH, J Jailene ANP Unavailable Unavailable SARAH, J Jailene ANP Unavailable Unavailable SARAH, J Jailene ANP Unavailable Unavailable SARAH, J Jailene ANP Unavailable Unavailable SARAH, J Jailene ANP Unavailable Unavailable SARAH, J Jailene ANP Unavailable Unavailable SARAH, J Jailene ANP Unavailable Unavailable SARAH, J Jailene ANP Unavailable Unavailable SARAH, J Jailene ANP Unavailable Unavailable SARAH, J Jailene ANP Unavailable Unavailable SARAH, J Jailene ANP Unavailable Unavailable SARAH, J Jailene ANP Unavailable Unavailable SARAH, J Jailene ANP Unavailable Unavailable SARAH, J Jaileen ANP Unavailable Unavailable SARAH, J Jailene ANP Unavailable Unavailable SARAH, J Jailene ANP Unavailable Unavailable SARAH, J Jailene ANP Unavailable Unavailable SARAH, J Jailene ANP Unavailable Unavailable SARAH, J Jailene ANP Unavailable Unavailable SARAH, J Jailene ANP Unavailable Unavailable SARAH, J Jailene ANP Unavailable Unavailable SARAH, J Jailene ANP Unavailable Unavailable SARAH, J Jailene ANP Unavailable Unavailable SARAH, J Jailene ANP Unavailable Unavailable SARAH, J Jailene ANP Unavailable Unavailable SARAH, J Jailene ANP Unavailable Unavailable SARAH, J Jailene ANP Unavailable Unavailable SARAH, J Jailene ANP Unavailable Unavailable SARAH, J Jailene ANP Unavailable Unavailable SARAH, J Jailene ANP Unavailable Unavailable SARAH, J Jailene ANP Unavailable Unavailable SARAH, J Jailene ANP Unavailable Unavailable SARAH, J Jailene ANP Unavailable Unavailable SARAH, J Jailene ANP Unavailable Unavailable SARAH, J Jailene ANP Unavailable Unavailable SARAH, J Jailene ANP Unavailable Unavailable SARAH, J Jailene ANP Unavailable Unavailable SARAH, J Jailene ANP Unavailable Unavailable SARAH, J Jailene ANP Unavailable Unavailable SARAH, J Jailene ANP Unavailable Unavailable SARAH, J Jailene ANP Unavailable Unavailable SARAH, J Jailene ANP Unavailable Unavailable SARAH, J Jailene ANP Unavailable Unavailable SARAH, J Jailene ANP Unavailable Unavailable SARAH, J Jailene ANP Unavailable Unavailable SARAH, J Jailene ANP Unavailable Unavailable SARAH, J Jailene ANP Unavailable Unavailable SARAH, J Jailene ANP Unavailable Unavailable SARAH, J Jailene ANP Unavailable Unavailable SARAH, J Jailene ANP Unavailable Unavailable SARAH, J Jailene ANP Unavailable Unavailable SARAH, J Jailene ANP Unavailable Unavailable SARAH, J Jailene ANP Unavailable Unavailable SARAH, J Jailene ANP Unavailable Unavailable SARAH, J Jailene ANP Unavailable Unavailable SARAH, J Jailene ANP Unavailable Unavailable SARAH, J Jailene ANP Unavailable Unavailable SARAH, J Jailene ANP Unavailable Unavailable SARAH, J Jailene ANP Unavailable Unavailable LePine, M Chey TILTROTOR CREW CHIEF Unavailable Unavailable LePine, M Chey TILTROTOR CREW CHIEF Unavailable Unavailable LePine, M Chey TILTROTOR CREW CHIEF Unavailable Unavailable LePine, M Chey TILTROTOR CREW CHIEF Unavailable Unavailable LePine, M Chey TILTROTOR CREW CHIEF Unavailable Unavailable LePine, M Chey TILTROTOR CREW CHIEF Unavailable Unavailable LePine, M Chey TILTROTOR CREW CHIEF Unavailable Unavailable LePine, M Chey TILTROTOR CREW CHIEF Unavailable Unavailable LePine, M Chey TILTROTOR CREW CHIEF Unavailable Unavailable LePine, M Chey TILTROTOR CREW CHIEF Unavailable Unavailable LePine, M Chey TILTROTOR CREW CHIEF Unavailable Unavailable LePine, M Chey TILTROTOR CREW CHIEF Unavailable Unavailable LePine, M Chey TILTROTOR CREW CHIEF Unavailable Unavailable LePine, M Chey TILTROTOR CREW CHIEF Unavailable Unavailable LePine, M Chye TILTROTOR CREW CHIEF Unavailable Unavailable LePine, M Chey TILTROTOR CREW CHIEF Unavailable Unavailable LePine, M Chey TILTROTOR CREW CHIEF Unavailable Unavailable LePine, M Chey TILTROTOR CREW CHIEF Unavailable Unavailable LePine, M Chey TILTROTOR CREW CHIEF Unavailable Unavailable LePine, M Chey TILTROTOR CREW CHIEF Unavailable Unavailable LePine, M Chey TILTROTOR CREW CHIEF Unavailable Unavailable LePine, M Chey TILTROTOR CREW CHIEF Unavailable Unavailable LePine, M Chey TILTROTOR CREW CHIEF Unavailable Unavailable LePine, M Chey TILTROTOR CREW CHIEF Unavailable Unavailable LePine, M Chey TILTROTOR CREW CHIEF Unavailable Unavailable LePine, M Chey TILTROTOR CREW CHIEF Unavailable Unavailable LePine, M Chey TILTROTOR CREW CHIEF Unavailable Unavailable LePine, M Chey TILTROTOR CREW CHIEF Unavailable Unavailable LePine, M Chey TILTROTOR CREW CHIEF Unavailable Unavailable LePine, M Chey TILTROTOR CREW CHIEF Unavailable Unavailable LePine, M Chey TILTROTOR CREW CHIEF Unavailable Unavailable LePine, M Chey TILTROTOR CREW CHIEF Unavailable Unavailable LePine, M Chey TILTROTOR CREW CHIEF Unavailable Unavailable LePine, M Chey TILTROTOR CREW CHIEF Unavailable Unavailable LePine, M Chey TILTROTOR CREW CHIEF Unavailable Unavailable LePine, M Chey TILTROTOR CREW CHIEF Unavailable Unavailable LePine, M Chey TILTROTOR CREW CHIEF Unavailable Unavailable LePine, M Chey TILTROTOR CREW CHIEF Unavailable Unavailable LePine, M Chey TILTROTOR CREW CHIEF Unavailable Unavailable LePine, M Chey TILTROTOR CREW CHIEF Unavailable Unavailable LePine, M Chey TILTROTOR CREW CHIEF Unavailable Unavailable LePine, M Chey TILTROTOR CREW CHIEF Unavailable Unavailable LePine, M Chey TILTROTOR CREW CHIEF Unavailable Unavailable LePine, M Chey TILTROTOR CREW CHIEF Unavailable Unavailable LePine, M Chey TILTROTOR CREW CHIEF Unavailable Unavailable LePine, M Chey TILTROTOR CREW CHIEF Unavailable Unavailable LePine, M Chey TILTROTOR CREW CHIEF Unavailable Unavailable LePine, M Chey TILTROTOR CREW CHIEF Unavailable Unavailable LePine, M Chey TILTROTOR CREW CHIEF Unavailable Unavailable LePine, M Chey TILTROTOR CREW CHIEF Unavailable Unavailable LePine, M Chey TILTROTOR CREW CHIEF Unavailable Unavailable LePine, M Chey TILTROTOR CREW CHIEF Unavailable Unavailable LePine, M Chey TILTROTOR CREW CHIEF Unavailable Unavailable LePine, M Chey TILTROTOR CREW CHIEF Unavailable Unavailable Linden LUZ MD Unavailable Unavailable CHERLinden NATHAN MD Unavailable Unavailable CHERLinden NATHAN MD Unavailable Unavailable CHERLinden NATHAN MD Unavailable Unavailable CHERLinden NATHAN MD Unavailable Unavailable CHERLinden NATHAN MD Unavailable Unavailable CHERLinden NATHAN MD Unavailable Unavailable CHERLinden NATHAN MD Unavailable Unavailable CHERLinden NATHAN MD Unavailable Unavailable CHERLinden NATHAN MD Unavailable Unavailable CHERNYLinden MD Unavailable Unavailable CHERNYLinden MD Unavailable Unavailable CHERNYLinden MD Unavailable Unavailable CHERNYLinden MD Unavailable Unavailable CHERNYLinden MD Unavailable Unavailable CHERNYLinden MD Unavailable Unavailable CHERNYLinden MD Unavailable Unavailable CHERNYLinden MD Unavailable Unavailable CHERNYLinden MD Unavailable Unavailable CHERNYLinden MD Unavailable Unavailable CHERNYLinden MD Unavailable Unavailable CHERNYLinden MD Unavailable Unavailable CHERNYLinden MD Unavailable Unavailable CHERLinden NATHAN MD Unavailable Unavailable CHERLinden NATHAN MD Unavailable Unavailable CHERLinden NATHAN MD Unavailable Unavailable CHERLinden NATHAN MD Unavailable Unavailable CHERLinden NATHAN MD Unavailable Unavailable CHERLinden NATHAN MD Unavailable Unavailable CHERLinden NATHAN MD Unavailable Unavailable CHERLinden NATHAN MD Unavailable Unavailable CHERLinden NATHAN MD Unavailable Unavailable CHERLinden NATHAN MD Unavailable Unavailable CHERLinden NATHAN MD Unavailable Unavailable CHERLinden NATHAN MD Unavailable Unavailable Linden LUZ MD Unavailable Unavailable CHERLinden NATHAN MD Unavailable Unavailable CHERLinden NATHAN MD Unavailable Unavailable CHERLinden NATHAN MD Unavailable Unavailable Linden LUZ MD Unavailable Unavailable Linden LUZ MD Unavailable Unavailable Linden LUZ MD Unavailable Unavailable Linden LUZ MD Unavailable Unavailable Linden LUZ MD Unavailable Unavailable Linden LUZ MD Unavailable Unavailable Linden LUZ MD Unavailable Unavailable Linden LUZ MD Unavailable Unavailable Linden LUZ MD Unavailable Unavailable Linden LUZ MD Unavailable Unavailable Linden LUZ MD Unavailable Unavailable Linden LUZ MD Unavailable Unavailable Linden LUZ MD Unavailable Unavailable Linden LUZ MD Unavailable Unavailable Linden LUZ MD Unavailable Unavailable Linden LUZ MD Unavailable Unavailable Linden LUZ MD Unavailable Unavailable Linden LUZ MD Unavailable Unavailable Linden LUZ MD Unavailable Unavailable Linden LUZ MD Unavailable Unavailable Linden LUZ MD Unavailable Unavailable Linden LUZ MD Unavailable Unavailable Linden LUZ MD Unavailable Unavailable CHERNY, C ERIC MD Unavailable Unavailable CHERNY, C ERIC MD Unavailable Unavailable CHERNY, C ERIC MD Unavailable Unavailable CHERNY, C ERIC MD Unavailable Unavailable CHERNY, C ERIC MD Unavailable Unavailable CHERNY, C ERIC MD Unavailable Unavailable CHERNY, C ERIC MD Unavailable Unavailable CHERNY, C ERIC MD Unavailable Unavailable CHERNY, C ERIC MD Unavailable Unavailable CHERNY, C ERIC MD Unavailable Unavailable CHERNY, C ERIC MD Unavailable Unavailable CHERNY, C ERIC MD Unavailable Unavailable CHERNY, C ERIC MD Unavailable Unavailable CHERNY, C ERIC MD Unavailable Unavailable CHERNY, C ERIC MD Unavailable Unavailable CHERNY, C ERIC MD Unavailable Unavailable CHERNY, C ERIC MD Unavailable Unavailable CHERNY, C ERIC MD Unavailable Unavailable CHERNY, C ERIC MD Unavailable Unavailable CHERNY, C ERIC MD Unavailable Unavailable CHERNY, C ERIC MD Unavailable Unavailable CHERNY, C ERIC MD Unavailable Unavailable CHERNY, C ERIC MD Unavailable Unavailable CHERNY, C ERIC MD Unavailable Unavailable CHERNY, C ERIC MD Unavailable Unavailable CHERNY, C ERIC MD Unavailable Unavailable CHERNY, C ERIC MD Unavailable Unavailable CHERNY, C ERIC MD Unavailable Unavailable Re-disclosure Warning The records that you are about to access may contain information from federally-assisted alcohol or drug abuse programs. If such information is present, then the following federally mandated warning applies: This information has been disclosed to you from records protected by federal confidentiality rules (42 CFR part 2). The federal rules prohibit you from making any further disclosure of this information unless further disclosure is expressly permitted by the written consent of the person to whom it pertains or as otherwise permitted by 42 CFR part 2. A general authorization for the release of medical or other information is NOT sufficient for this purpose. The Federal rules restrict any use of the information to criminally investigate or prosecute any alcohol or drug abuse patient.The records that you are about to access may contain highly sensitive health information, the redisclosure of which is protected by Article 27-F of the [facility] Public Health law. If you continue you may have access to information: Regarding HIV / AIDS; Provided by facilities licensed or operated by the [facility] Office of Mental Health; or Provided by the [facility] Office for People With Developmental Disabilities. If such information is present, then the following [facility] mandated warning applies: This information has been disclosed to you from confidential records which are protected by state law. State law prohibits you from making any further disclosure of this information without the specific written consent of the person to whom it pertains, or as otherwise permitted by law. Any unauthorized further disclosure in violation of state law may result in a fine or shelter sentence or both. A general authorization for the release of medical or other information is NOT sufficient authorization for further disc losure. Family History Family Member Name Family Member Gender Family Member Status Date o f Status Description Data Source(s) Unknown Male Problem [facility] ([facility]) () - age 85 Unknown Male Problem [facility] ([facility]) Unknown Male Problem [facility] ([facility]) () Unknown Male Problem [facility] ([facility]) () Unknown Unknown Problem [facility] ([facility] Unknown Unknown Problem [facility] ([facility] Unknown Female Problem [facility] ([facility]) Encounters Encounter Providers Location Date Indications Data Source(s ) Outpatient Attender: ERIC Hawthorneer: LIZ LUZ MD [id number] 09/10/2020 01:10:42 PM EST [facility] Outpatient Attender: ERIC Santana: LIZ LUZ MD [id number] 09/10/2020 01:07:29 PM EST [facility] Outpatient Attender: ABDI SHAFFER NP Physical Therapy 09/10/2020 0 7:30:00 AM EST [facility] ([facility]) Outpatient Attender: CHUYITA MAURICE [facility] 07/19/2020 09:00:00 AM EDT [facility] ([facility] Outpatient Attender: ABDI SHAFFER NP Physical Therapy 07/02/2020 1 0:30:00 AM EDT [facility] ([facility]) Outpatient Attender: Chey Blackman 02/21 11:00:00 AM EDT [facility] ([facility] ) Outpatient Referrer: Jailene MCLEOD 10/05/2019 11:17:00 AM EST [facility] Immunizations Vaccine Date Status Description Data Source(s) This CVX code allows reporting of a vacc ination when formulation is unknown (for example, when recording a Influenza vaccination when noted on a vaccination card) 06/27/2020 09:16:00 AM EDT completed MEDEN T ([facility]) Influenza, injectable, MDCK, preservative free, khai valent 06/18/2020 11:45:00 AM EDT completed [facility] ([facility]) Medications Medication Brand Name Start Date Product Form Dose Route Admi nistrative Instructions Pharmacy Instructions Status Indications Reaction Description Data Source(s) 0.075 % 09/25/2020 12:00:00 AM EST drops 5 INSTILL 1 DROP IN THE LEFT EYE TWO TIMES A DAY - START 3 DAYS PRIOR TO SURGERY INSTILL 1 DROP IN THE LEFT EYE TWO TIMES A DAY - START 3 DAYS PRIOR TO SURGERY SOLD: 09/28/2020 [facility] moxifloxacin 5 MG/ML Ophthalmic Solution 0.5 % MOXIFLOXACIN HCL 09/25/2020 12:00:00 AM EST drops 3 INSTILL 1 DROP I N THE LEFT EYE FOUR TIMES A DAY - START 3 DAYS PRIOR TO SURGERY INSTILL 1 DROP IN THE LEFT EYE FOUR TIME S A DAY - START 3 DAYS PRIOR TO SURGERY SOLD: 09/28/2020 [facility] 1 % 09/25/2020 12:00:00 AM EST drops,suspension 2 DAY OF SURGERY REMOVE PATCH AND START ONE DROP TWO TIMES A DAY IN THE LEFT EYE DAY OF SURGERY REMOVE PATCH AND START ONE DROP TWO TIMES A DAY IN THE LEFT EYE SOLD: 09/28/2020 [facility] 2001#[id number] (60mg Syringe) 1MG 09/10/2020 12:00:00 AM EST completed [facility] Medication administered onsite Sure Comfort Pen NDL 31GX3/16" 07/18/2020 12:00:00 AM EDT active [facility] ([facility] 24 HR metoprolol succinate 25 MG Extended Release Oral Tablet Metoprolol Succinate ER 01/04/2020 12:00:00 AM EDT ORAL active [facility] ([facility]) 300 mg 09/02/2019 12:00:00 AM EST capsule 30 TAKE ONE CAPSULE BY MOUTH THREE TIMES A DAY FOR 10 DAYS TAKE ONE CAPSULE BY MOUTH THREE TIMES A DAY FOR 10 DAY S SOLD: 09/02/2019 [facility] Lancets Micro Thin 33G 08/30/2019 12:00:00 AM EST active [facility] ([facility]) Contour Next Blood Glucose Test 08/30/2019 12:00:00 AM EST active [facility] ([facility] ) Insurance Providers Payer name Policy type / Coverage type Policy ID Covered constitution party ID Covered constitution party's relationship to forrester Policy Forrester Plan Information MEDICARE [id number] SP [id number] UMR [facility] [id number] HU2 [id number] UMR [facility] [id number] SP [id number] FOR LIFE [id number] Umr Tertiary [id number] Umr Secondary [id number] Medicare Primary [id number] FOR LIFE U [id number] Spouse [id number] MEDICARE A [id number] Self [id number] A MEDICARE C [id number] S [id number] UMR O [id number] S [id number] MEDICARE [id number] SP [id number] A UMR [facility] [id number] HU2 [id number] UMR [facility] [id number] SP [id number] MEDICARE [id number] SP [id number] FOR LIFE [id number] UMR [facility] [id number] HU2 [id number] UMR [facility] [id number] SP [id number] DO Not Use (Now #[id number]) Commercial [id number] Family Dependent [id number] WPS For Life Medigap Part B [id number] Family Depende nt [id number] [place] (Old) Medigap Part B [id number] Family Dependent [id number] [place] (Old) Medigap Part B [id number] Self [id number] Umr (New [place]) Medigap Part B [id number] Self [id number] Medicare Natl Govt Servic Medicare Primary [id number] Self [id number] Umr (New [place]) Medigap Part B [id number] Family Dependent [id number] [facility] Medigap Part B [id number] Self [id number] [facility] Part B [id number] Self [id number] Umr (pr) Medigap Part B [id number] Self [id number] Umr (pr) Medigap Part B [id number] Self [id number] [place] [id number] Self [id number] [facility] Service Medigap Part B [id number] Family De pendent [id number] [place] (pr) Medigap Part B [id number] Family Dependent [id number] [place] (pr) Medigap Part B [id number] Self [id number] Umr (pr) Medigap Part B [id number] Family Dependent [id number] Umr (pr) Medigap Part B [id number] Self [id number] Medicare Dme Supplies Medigap Part B [id number] Self [id number] [place] Primary [id number] Self [id number] [employer] HLTH (pr) Medigap Part B [id number] Family Depende nt [id number] [place] [facility] (T[place]) Medigap Part B [id number] Self [id number] Umr (pr) Medigap Part B [id number] Self [id number] Umr (pr) Medigap Part B [id number] Self [id number] [place] Primary [id number] Self [id number] [place] [facility] (T[place]) Medigap Part B [id number] Self [id number] Umr (pr) Medigap Part B [id number] Self [id number] Umr (pr) Medigap Part B [id number] Self [id number] [place] Primary [id number] Self [id number] DO Not Use (Now #114) Commercial [id number] Family Dependent [id number] WPS For Life Medigap Part B [id number] Family Depende nt [id number] [place]/Umr (Old) Medigap Part B [id number] Family Dependent [id number] [place]/Umr (Old) Medigap Part B [id number] Self [id number] Medicare Natl Govt Serv Medicare Primary [id number] Self [id number] Umr (New [place]) Medigap Part B [id number] Self [id number] DO Not Use (Now #114) Commercial [id number] Family Dependent [id number] WPS For Life Medigap Part B [id number] Family Depende nt [id number] [place]/Umr (Old) Medigap Part B [id number] Family Dependent [id number] [place]/Umr (Old) Medigap Part B [id number] Self [id number] Medicare Natl Govt Serv Medicare Primary [id number] Self [id number] [facility] Federal Service Medigap Part B [id number] Family De pendent [id number] [place] (pr) Medigap Part B [id number] Family Dependent [id number] [place] (pr) Medigap Part B [id number] Self [id number] Umr (pr) Medigap Part B [id number] Family Dependent [id number] Medicare Dme Supplies Medigap Part B [id number] Self [id number] Umr (pr) Medigap Part B [id number] Self [id number] [place] Primary [id number] Self [id number] [facility] Service Medigap Part B [id number] Family De pendent [id number] [place] (pr) Medigap Part B [id number] Family Dependent [id number] [place] (pr) Medigap Part B [id number] Self [id number] Umr (pr) Medigap Part B [id number] Family Dependent [id number] Medicare Dme Supplies Medigap Part B [id number] Self [id number] Umr (pr) Medigap Part B [id number] Self [id number] [place] Primary [id number] Self [id number] MEDICARE C [id number] S [id number] A [facility] Service Medigap Part B [id number] Family De pendent [id number] [place] (pr) Medigap Part B [id number] Family Dependent [id number] [place] (pr) Medigap Part B [id number] Self [id number] Umr (pr) Medigap Part B [id number] Family Dependent [id number] Medicare Dme Supplies Medigap Part B [id number] Self [id number] Umr (pr) Medigap Part B [id number] Self [id number] [place] Primary [id number] Self [id number] UMR [facility] [id number] HU2 [id number] UMR [facility] [id number] SP [id number] [place] / UMR F [id number] SPOUSE [id number] [place] / UMR F [id number] SELF [id number] DME Jurisdiction A [facility] C [id number] SELF [id number] Medicare C [id number] SELF [id number] A POMCO [id number] HU2 [id number] POMCO [id number] SP [id number] [facility] Service Medigap Part B [id number] Family De pendent [id number] [place] (pr) Medigap Part B [id number] Family Dependent [id number] [place] (pr) Medigap Part B [id number] Self [id number] Umr (pr) Medigap Part B [id number] Family Dependent [id number] Umr (pr) Medigap Part B 40408518 Self [id number] [place] Primary [id number] Self [id number] [facility] Medigap Part B [id number] Family De pendent [id number] [place] (pr) Medigap Part B [id number] Family Dependent [id number] [place] (pr) Medigap Part B [id number] Self [id number] Umr (pr) Medigap Part B [id number] Family Dependent [id number] Umr (pr) Medigap Part B [id number] Self [id number] [place] Primary [id number] Self [id number] [facility] Medigap Part B [id number] Family De pendent [id number] [place] (pr) Medigap Part B [id number] Family Dependent [id number] [place] (pr) Medigap Part B [id number] Self [id number] Umr (pr) Medigap Part B [id number] Family Dependent [id number] Umr (pr) Medigap Part B [id number] Self [id number] [place] Primary [id number] Self [id number] DO Not Use (Now #114) Commercial [id number] Family Dependent [id number] WPS For Life Medigap Part B [id number] Family Depende nt [id number] [place]/Umr (Old) Medigap Part B [id number] Family Dependent [id number] [place]/Umr (Old) Medigap Part B [id number] Self [id number] Umr (as Of 01/25/2018) Medigap Part B [id number] Family Depen dent [id number] Umr (as Of 01/25/2018) Medigap Part B [id number] Self [id number] Medicare [facility] Govt Serv Medicare Primary [id number] Self [id number] POMCO U [id number] Spouse [id number] POMCO U [id number] Self [id number] [facility] Service Medigap Part B [id number] Family De pendent [id number] [place] (pr) Medigap Part B [id number] Family Dependent [id number] [place] (pr) Medigap Part B [id number] Self [id number] Umr (pr) Medigap Part B [id number] Family Dependent [id number] Umr (pr) Medigap Part B [id number] Self [id number] [place] Primary [id number] Self [id number] DO Not Use (Now #114) Commercial [id number] Family Dependent [id number] WPS For Life Medigap Part B [id number] Family Depende nt [id number] Umr [place] (Before 01/25/18) Medigap Part B [id number] Family De pendent [id number] Umr [place] (Before 01/25/18) Medigap Part B [id number] Self [id number] Umr (01/25/2018) Medigap Part B [id number] Family Dependent [id number] Umr (01/25/2018) Medigap Part B [id number] Self [id number] Medicare [facility] Govt Servic Medicare Primary [id number] Self [id number] POMCO PPO O [id number] S [id number] POMCO PPO O [id number] S [id number] POMCO HEA [id number] SP [id number] MCA [id number] A UNAVAILABLE UNAVAILA BLE POMCO HEA [id number] S [id number] MEDICARE MCA [id number] S [id number] A POMCO HEA [id number] SP [id number] MEDICARE MCA [id number] S [id number] A [employer] Commercial [id number] Family Dependent [id number] WPS For Life Medigap Part B [id number] Family Depende nt [id number] Umr [place] Ppo Medigap Part B [id number] Family Dependent [id number] Umr [place] Ppo Medigap Part B [id number] Self [id number] Medicare Natl Govt Servic Medicare Primary [id number] Self [id number] Spo [id number] MEDICARE [id number] Tamia [id number] A POMCO [id number] Spo [id number] POMCO [id number] Tamia [id number] MEDICARE PI PI PI PI POMCO PI PI POMCO [id number] HU2 [id number] POMCO [id number] SP [id number] MEDICARE [id number] SP [id number] A [place] F [id number] SPOUSE [id number] [place] F [id number] SELF [id number] [employer] Commercial [id number] Family Dependent [id number] WPS For Life Medigap Part B [id number] Family Depende nt [id number] [place] Ppo Medigap Part B [id number] Family Dependent [id number] [place] Ppo Medigap Part B [id number] Self [id number] Medicare Natl Govt Servic Medicare Primary [id number] Self [id number] FOR LIFE [id number] HU2 [id number] [employer] Commercial [id number] Family Dependent [id number] WPS For Life Medigap Part B [id number] Family Depende nt [id number] [place] Ppo Medigap Part B [id number] Family Dependent [id number] [place] Ppo Medigap Part B [id number] Self [id number] Medicare Natl Govt Servic Medicare Primary [id number] Self [id number] FOR LIFE [id number] HU2 [id number] POMCO [id number] SP [id number] POMCO [id number] HU2 [id number] [employer] Commercial [id number] Family Dependent [id number] WPS For Life Medigap Part B [id number] Family Depende nt [id number] [place] Ppo Medigap Part B [id number] Family Dependent [id number] [place] Ppo Medigap Part B [id number] Self [id number] Medicare Natl Govt Servic Medicare Primary [id number] Self [id number] POMCO [id number] SP [id number] POMCO [id number] HU2 [id number] Healthnet Commercial [id number] Family Dependent [id number] WPS For Life Medigap Part B [id number] Family Depende nt [id number] [place] Ppo Medigap Part B [id number] Family Dependent [id number] [place] Ppo Medigap Part B [id number] Self [id number] Medicare Natl Govt Servic Medicare Primary [id number] Self [id number] [facility] [id number] HU2 [id number] POMCO [id number] SP [id number] [place] MEDICARE PART B C [id number] O [id number] [place] Medigap Part B Family Dependent [place] Medigap Part B Self Medicare Natl Gov't Servi Medicare Primary Self [facility] [facility] Medigap Part B Ppo Self Ppo Healthnet Commercial Family Dependent WPS For Life Medigap Part B Family Depende nt [place] Ppo Medigap Part B 335 Family Dependent 335 [place] Ppo Medigap Part B 333 Self 333 Medicare Natl Govt Servic Medicare Primary Self POMCO [id number] SP [id number] Standard Commercial Family Dependent [place] Commercial Family Dependent [place] Commercial Self [place] Medicare Primary Self POMCO [id number] SP [id number] POMCO O [id number] S [id number] MEDICARE M [id number] S [id number] A [id number] Spo [id number] Tamia [id number] MEDICARE [id number] Tamia [id number] A FOR LIFE U [id number] Self [id number] [employer] [id number] 2 [id number] PGBA MOHALL OMAR O [id number] S [id number] Problems, Conditions, and Diagnoses Code Display Name Description Problem Type Effective Dates Data Source(s) 04808866 Essential hypertension Essential hypertension Problem 01/04/2020 12:00:00 AM EDT [facility] ([facility]) [id number] Dietary management surveillance Dietary manageme nt surveillance Problem 01/04/2020 12:00:00 AM EDT [facility] ([facility]) Surgeries/Procedures Procedure Description Date Indications Data Source(s) THERAPEUTIC PROPHYLACTIC/DX INJECTION SUBQ/IM 09/10/20 12:00:00 AM EST [facility] ([facility] ) Electrocardiogram Complete 07/19/2020 12:00:00 AM EDT [facility] ([facility]) Diabetic Retinal Eye Exam 06/27/2020 12:00:00 AM EDT [facility] ([facility]) Diabetic Retinal Eye Exam 12/15/2019 12:00:00 AM EDT [facility] ([facility]) Mammogram 09/15/2019 12:00:00 AM EST M [facility] ([facility]) Results ID Date Data Source [id number] 10/05/2020 08:30:00 AM EST [facility] Name Value Range Interpretation Code Description Data Dorina rce(s) Supporting Document(s) SARS coronavirus 2 RNA Not Detected [facility] This lab was ordered by [facility] and reported by [facility]. ID Date Data Source [id number] 09/28/2020 09:00:00 AM EST [facility] Name Value Range Interpretation Code Description Data Dorina rce(s) Supporting Document(s) SARS coronavirus 2 RNA [facility] This lab was ordered by [facility] and reported by [facility]. ID Date Data Source [id number] 09/03/2020 01:29:00 PM EST [facility] ([facility]) Name Value Range Interpretation Code Description Data Dorina rce(s) Supporting Document(s) Calcium [Mass/volume] in Serum or Plasma 10.1 mg/dL 8.8-10.2 [facility] ([facility] ) ID Date Data Source [id number] 07/19/2020 09:53:00 AM EDT [facility] ([facility]) Name Value Range Interpretation Code Description Data Dorina rce(s) Supporting Document(s) Laboratory test finding (navigational concept) Laboratory test result [facility] ([facility]) FASTING:YES FASTING: YES ID Date Data Source [id number] 07/19/2020 09:53:00 AM EDT [facility] ([facility]) Name Value Range Interpretation Code Description Data Dorina rce(s) Supporting Document(s) Cholesterol [Mass/volume] in Serum or Plasma 117 mg/dL Normal (applies to non- numeric results) [facility] ([facility]) FASTING:YES FASTING: YES Cholesterol in LDL [Mass/volume] in Serum or Plasma by calculation 51 mg/dL(calc) Normal (applies to non-numeric results) [facility] ([facility]) FASTING:YES FASTING: YES Triglyceride [Mass/volume] in Serum or Plasma 142 mg/dL Normal (applies to non-numeric results) [facility] ([facility]) FASTING:YES FASTING: YES Cholesterol in HDL [Mass/volume] in Serum or Plasma 43 mg/dL Below low normal [facility] ([facility] Cardiac Catheterization [facility]) FASTING:YES FASTING: YES Service comment Laboratory test result [facility] ([facility] Cardiac Catheterization [facility]) FASTING:YES FASTING: YES Cholesterol.total/Cholesterol in HDL [Mass Ratio] in Serum o r Plasma 2.7 (calc) Normal (applies to non-numeric results) [facility] ([facility] Cardiac Catheterization [facility]) FASTING:YES FASTING: YES Cholesterol non HDL [Mass/volume] in Serum or Plasma 74 mg/dL(ca lc) Normal (applies to non-numeric results) [facility] ([facility]) FASTING:YES FASTING: YES ID Date Data Source [id number] 07/19/2020 09:53:00 AM EDT [facility] ([facility]) Name Value Range Interpretation Code Description Data Dorina rce(s) Supporting Document(s) Creatine Kinase, Total 86 U/L 29-143 Normal (applies to non-n umeric results) [facility] ([facility] Cardiac Catheterization [facility]) FASTING:YES FASTING: YES Aspartate aminotransferase [Enzymatic activity/volume] in Serum or Plasma 19 U/L 10-35 Normal (applies to non-numeric results) [facility] ([facility]) FASTING:YES FASTING: YES Alanine aminotransferase [Enzymatic activity/volume] in Seru m or Plasma 11 U/L 6-29 Normal (applies to non-numeric results) [facility] ([facility]) FASTING:YES FASTING: YES ID Date Data Source [id number] 07/20/2020 06:45:00 AM EDT [facility] FASTING:YESFASTING: YESReceived: 020 at 09:54:00 QPT: [facility], [address], [address] [place], [address], Michael Bobo MD Received: 07/19/2020 at 09:54:00 QPT : [facility], [address], [address] [place], [address], Michael Bobo MD Received: 07/19/2020 at 09:54:00 QPT : [facility], [address], [address] [place], [address], Michael Bobo MD Received: 07/19/2020 at 09:54:00 [facility]PT : [facility], [address], [address] [place], [address], Michael Bobo MD Name Value Range Interpretation Code Description Data Dorina rce(s) Supporting Document(s) Cholesterol [Mass/volume] in Serum or Plasma 117 mg/dL <20 0 Normal (applies to non-numeric results) [facility] Cholesterol in HDL [Mass/volume] in Serum or Plasma 43 mg/dL > OR = 50 Below low normal [facility] Triglyceride [Mass/volume] in Serum or Plasma 142 mg/dL <1 50 Normal (applies to non-numeric results) [facility] Cholesterol in LDL [Mass/volume] in Serum or Plasma by calculation 51 mg/dL (calc) Normal (applies to non-numeric results) [facility] Reference range: <100Desirable range <10 0 mg/dL for primary prevention;<70 mg/dL for patients with CHD or diabetic patientswith > or = 2 CHD risk factors.LDL-C is now calculated using the Glenn-La Villacalculation, which is a validated novel method providingbetter accuracy than the Friedewald equation in theestimation of LDL-C.Glenn SS et al. SATNAM. 2013;310(19): 5144-8568(http://education.Echodios.com/faq/HRB204) Cholesterol.total/Cholesterol in HDL [Mass Ratio] in Serum o r Plasma 2.7 (calc) <5.0 Normal (applies to non-numeric results) [facility] Cholesterol non HDL [Mass/volume] in Serum or Plasma 74 mg/dL (c alc) <130 Normal (applies to non-numeric results) [facility] For patients with diabetes plus 1 major ASCVD riskfactor, treating to a non-HDL-C goal of <100 mg/dL(LDL-C of <70 mg/dL) is considered a therapeuticoption. Service comment [facility] We received your handwritten test order andperformed the AMA defined lipid panel. Ifthis is not what you intended to order, pleasecontact your local client service representativeimmediately so that we may adjust our billingappropriately. You may also inquire aboutalternative or additional testing. ID Date Data Source [id number] 07/20/2020 06:45:00 AM EDT [facility] FASTING:YESFASTING: YESReceived: at 09:54:00 [facility], [address] [place] [address], [phone] MD Received: 07/19/2020 at 09:54:00 QPT : [address], [address] [place] [address], [phone] MD Received: 07/19/2020 at 09:54:00 QPT : [facility] [address], [address] [place] [address], [phone] MD Received: 07/19/2020 at 09:54:00 QPT : [address], [address] [place] [address], [phone] MD Name Value Range Interpretation Code Description Data Dorina rce(s) Supporting Document(s) Aspartate aminotransferase [Enzymatic activity/volume] in Serum or Plasma 19 U/L 10-35 Normal (applies to non-numeric results) [facility] ID Date Data Source [id number] 07/20/2020 06:45:00 AM EDT [facility] FASTING:YESFASTING: YESReceived: at 09:54:00 QPT: [facility] [address], [address] [place] [address], [phone] MD Received: 07/19/2020 at 09:54:00 QPT : [facility], [address], [address] [place], [address]Michael MD Received: 07/19/2020 at 09:54:00 QPT : [facility], [address], [address] [place], [address]Michael MD Received: 07/19/2020 at 09:54:00 QPT : [facility], [address], [address] [place], [address], Michael Bobo MD Name Value Range Interpretation Code Description Data Dorina rce(s) Supporting Document(s) Alanine aminotransferase [Enzymatic activity/volume] in Seru m or Plasma 11 U/L 6-29 Normal (applies to non-numeric results) [facility] ID Date Data Source [id number] 07/20/2020 06:45:00 AM EDT [facility] FASTING:YESFASTING: YESReceived: 020 at 09:54:00 QPT: [facility], [address], [address] [place], [address], Michael Bobo MD Received: 07/19/2020 at 09:54:00 QPT : [facility], [address], [address] [place], [address]Michael MD Received: 07/19/2020 at 09:54:00 QPT : [facility], [address], [address] [place], [address]Michael MD Received: 07/19/2020 at 09:54:00 QPT : [facility], [address], [address] [place], [address]Michael MD Name Value Range Interpretation Code Description Data Dorina rce(s) Supporting Document(s) Creatine kinase [Enzymatic activity/volume] in Serum or Plasma 8 6 U/L 29-143 Normal (applies to non-numeric results) [facility] ID Date Data Source [id number] 06/18/2020 12:33:00 PM EDT [facility] ([facility]) Name Value Range Interpretation Code Description Data Dorina rce(s) Supporting Document(s) Iron [Mass/volume] in Serum or Plasma 118 ug/dL 50-170 [facility] ([facility]) ID Date Data Source [id number] 06/18/2020 12:31:00 PM EDT [facility] ([facility]) Name Value Range Interpretation Code Description Data Dorina rce(s) Supporting Document(s) Urea nitrogen [Mass/volume] in Serum or Plasma 27 mg/dL 7-18 [facility] ([facility]) Glucose [Mass/volume] in Serum or Plasma 121 mg/dL 74-99 [facility] ([facility]) 100-125 mg/dL PRE-DIABETES/FASTING >126 mg/dL DIABETES/FASTING Sodium [Moles/volume] in Serum or Plasma 137 meq/L 136-145 [facility] ([facility]) Potassium [Moles/volume] in Serum or Plasma 4.2 meq/L 3.5-5.1 [facility] ([facility]) Creatinine 1.3 mg/dL 0.6-1.3 [facility] ([facility]) Calcium [Mass/volume] in Serum or Plasma 9.2 mg/dL 8.5-10.1 [facility] ([facility]) Chloride [Moles/volume] in Serum or Plasma 102 meq/L 98-107 [facility] ([facility]) Carbon dioxide, total [Moles/volume] in Serum or Plasma 30 meq/L 21 -32 [facility] ([facility]) Total Bilirubin 0.6 mg/dL 0.2-1.0 [facility] ([facility]) Alkaline phosphatase isoenzyme [Units/volume] in Serum or Pl asma 84 mg/dL 46-116 [facility] ([facility]) Albumin [Mass/volume] in Serum or Plasma 3.7 g/dL 3.4-5.0 [facility] ([facility]) Aspartate aminotransferase [Enzymatic activity/volume] in Serum or Plasma 25 U/L 15-37 [facility] ([facility] ) Alanine aminotransferase [Enzymatic activity/volume] in Seru m or Plasma 25 U/L 12-78 [facility] ([facility]) Glomerular filtration rate/1.73 sq M pre dicted among non-blacks [Volume Rate/Area] in Serum or Plasma by Creatinine-based formula (MDRD) 40 mL[facility]min [facility] Proteinase 3 Ab [Units/volume] in Serum 7.9 g/dL 6.4-8.2 [facility] A/G Ratio 0.88 CALC 1.00-1.90 [facility] ([facility]) Glomerular filtration rate/1.73 sq M pre dicted among blacks [Volume Rate/Area] in Serum or Plasma by Creatinine-based formula (MDRD) 49 mL/min [facility] <content>CHRONIC KIDNEY DISEASE STAGING PER NKF</content>
<content></content>
<content>STAGE I & II GFR >= 60 NORMAL TO MILDLY DECREASED</content>
<content>STAGE III GFR 30-59 MODERATELY DECREASED</content>
<content>STAGE IV GFR 15-29 SEVERELY DECREASED</content>
<content>STAGE V GFR <15 VERY LITTLE GFR LEFT</content>
<content>ESRD GFR <15 ON NUTRITION REPRESENTATIVE</content>
<content></content> ID Date Data Source [id number] 06/18/2020 12:31:00 PM EDT [facility] Name Value Range Interpretation Code Description Data Dorina rce(s) Supporting Document(s) Magnesium 2.2 mg/dL 1.8-2.4 [facility] ([facility]) ID Date Data Source [id number] 06/18/2020 12:31:00 PM EDT [facility] Name Value Range Interpretation Code Description Data Dorina rce(s) Supporting Document(s) Hemoglobin A1c/Hemoglobin.total in Blood 6.0 % [facility] ([facility]) Lab Result Notes: Pre-Diabetes 5.7 - 6.4 % Diabetes = or > 6.5% Glucose mean value [Mass/volume] in Blood Estimated fr om glycated hemoglobin 125 mg/dL 60-110 [facility] ID Date Data Source [id number] 06/18/2020 12:31:00 PM EDT [facility] ([facility]) Name Value Range Interpretation Code Description Data Dorina rce(s) Supporting Document(s) Erythrocytes [#/volume] in Blood by Automated count 4.44 x10*6/UL 4.2 0-6.30 [facility] ([facility]) Leukocytes [#/volume] in Blood by Automated count 7.4 x10*3/UL 4.1-10 .9 [facility] ([facility]) Hemoglobin [Mass/volume] in Blood 13.8 g/dL 12.0-18.0 [facility] ([facility]) MCV 91.3 fL 80.0-97.0 [facility] Hematocrit [Volume Fraction] of Blood by Automated count 40.5 % 3 7.0-51.0 [facility] ([facility]) MCHC 34.1 g/dL 31.0-38.0 [facility] MCH 31.1 pg 26.0-32.0 [facility] Erythrocyte distribution width [Ratio] by Automated count 13.7 % 11.6-13.7 [facility] ([facility]) MPV 9.0 FL 7.8-11.0 [facility] Lymph % 27.9 % 10.0-58.5 [facility] Platelets [#/volume] in Blood by Automated count 189 x10*3/UL 140-440 [facility] ([facility]) Mid % 7.7 % 1.7-9.3 [facility] Neut % 64.4 % 37.0-92.0 [facility] Lymph # 2.0 x10*3/UL 0.6-4.1 [facility] ([facility]) Neut # 4.7 x10*3/UL 2.0-7.8 [facility] ([facility]) Mid # 0.7 x10*3/UL 0.1-0.6 [facility] ([facility]) ID Date Data Source [id number] 02/22/2020 11:41:00 AM EDT [facility] ([facility]) Name Value Range Interpretation Code Description Data Dorina rce(s) Supporting Document(s) Hemoglobin A1c/Hemoglobin.total in Blood 6.0 g/dL 4.8-5.6 [facility] ([facility]) Lab Result Notes: Pre-Diabetes 5.7 - 6.4 % Diabetes = or > 6.5% Glucose mean value [Mass/volume] in Blood Estimated fr om glycated hemoglobin 125 mg/dL 60-110 [facility] ([facility] ) ID Date Data Source [id number] 12/11/2019 10:40:00 AM EDT [facility] ([facility]) Name Value Range Interpretation Code Description Data Dorina rce(s) Supporting Document(s) Calcium [Mass/volume] in Serum or Plasma 9.9 mg/dL 8.8-10.2 [facility] ([facility]) Calcidiol [Mass/volume] in Serum or Plasma 62.6 ng/mL 30.0-100.0 [facility] ([facility]) Procedure Social History Code Duration Value Status Description Data Source(s ) Smoking 07/02/2020 12:00:00 AM EDT Patient has never smoked co mpleted Patient has never smoked [facility] ([facility]) Smoking 01/03/2020 12:00:00 AM EDT Patient has never smoked co mpleted Patient has never smoked [facility] ([facility] Vital Signs ID Date Data Source UNK Name Value Range Interpretation Code Description Data Source(s) Oxygen saturation in Arterial blood by Pulse oximetry 98 % 98 % [facility] ([facility]) Body mass index (BMI) [Ratio] 27.4 kg/m2 27.4 k g/m2 [facility] ([facility]) Body weight 148.50 [lb_av] 148.50 [lb_av] [facility] T ([facility]) Body height 61.75 [in_i] 61.75 [in_i] [facility] ([facility] 5'1.75" Body temperature 97.2 [degF] 97.2 [degF] [facility] ([facility]) Heart rate 63 /min 63 /min [facility] ([facility]) Diastolic blood pressure 64 mm[Hg] 64 mm[Hg] [facility] ([facility] ) Systolic blood pressure 114 mm[Hg] 114 mm[Hg] M [facility] ([facility] ) Body surface area Derived from formula 1.63 m2 1.63 m2 [facility] ([facility] Oxygen saturation in Arterial blood by Pulse oximetry 98 % 98 % [facility] ([facility] Body mass index (BMI) [Ratio] 28.3 kg/m2 28.3 k g/m2 [facility] ([facility] Body height 60 [in_i] 60 [in_i] [facility] ([facility] 5'0" Body weight 145.00 [lb_av] 145.00 [lb_av] [facility] T ([facility] Diastolic blood pressure 70 mm[Hg] 70 mm[Hg] [facility] ([facility] Systolic blood pressure 120 mm[Hg] 120 mm[Hg] M [facility] ([facility]) Oxygen saturation in Arterial blood by Pulse oximetry 97 % 97 % [facility] ([facility] ) Body mass index (BMI) [Ratio] 27.0 kg/m2 27.0 k g/m2 [facility] ([facility] ) Body weight 146.31 [lb_av] 146.31 [lb_av] [facility] T ([facility]) Body height 61.75 [in_i] 61.75 [in_i] [facility] ([facility]) 5'1.75" Body temperature 97.3 [degF] 97.3 [degF] [facility] ([facility] ) Heart rate 69 /min 69 /min [facility] ([facility]) Diastolic blood pressure 74 mm[Hg] 74 mm[Hg] [facility] ([facility]) Systolic blood pressure 122 mm[Hg] 122 mm[Hg] M [facility] ([facility]) Body weight 147.00 [lb_av] 147.00 [lb_av] [facility] T ([facility]) Body height 60.5 [in_i] 60.5 [in_i] [facility] ([facility]) 5'0.50" Heart rate 68 /min 68 /min [facility] ([facility]) Diastolic blood pressure 80 mm[Hg] 80 mm[Hg] [facility] ([facility]) Systolic blood pressure 128 mm[Hg] 128 mm[Hg] M [facility] ([facility]) Body mass index (BMI) [Ratio] 28.2 kg/m2 28.2 k g/m2 [facility] ([facility]) Oxygen saturation in Arterial blood by Pulse oximetry 96 % 96 % [facility] ([facility]) Body mass index (BMI) [Ratio] 28.6 kg/m2 28.6 k g/m2 [facility] ([facility]) Oxygen saturation in Arterial blood by Pulse oximetry 96 % 96 % [facility] ([facility]) Body weight 149.00 [lb_av] 149.00 [lb_av] [facility] T ([facility]) Body height 60.5 [in_i] 60.5 [in_i] [facility] 5'0.50" Heart rate 70 /min 70 /min [facility] Diastolic blood pressure 70 mm[Hg] 70 mm[Hg] [facility] ([facility]) Systolic blood pressure 112 mm[Hg] 112 [facility]Hg] [facility] Body surface area Derived from formula 1.64 m2 1.64 m2 [facility] Body mass index (BMI) [Ratio] 28.7 kg/m2 28.7 k g/m2 [facility] ([facility] Body height 60 [in_i] 60 [in_i] [facility] ([facility] 5'0" Body weight 147.00 [lb_av] 147.00 [lb_av] [facility] T ([facility] Diastolic blood pressure 70 mm[Hg] 70 mm[Hg] [facility] ([facility] Systolic blood pressure 133 mm[Hg] 133 mm[Hg] M [facility] ([facility])
[2020-10-10 11:50] VITALS: BP 145/70
--- NOTE | 2020-10-11 08:14 | RO ---
OPERATIVE NOTE DATE OF OPERATION: 10/10/2020 PREOPERATIVE DIAGNOSIS: 1. Visually significant nuclear sclerotic cataract, right eye. POSTOPERATIVE DIAGNOSIS: 1. Visually significant nuclear sclerotic cataract, right eye. PROCEDURE: 1. Cataract extraction with use of phacoemulsification, and placement of intraocular lens, AU00T0, D 21.5, right eye. SURGEON: Cedrick Pemberton DO ANESTHESIA: Local (Omidria with MAC) COMPLICATIONS: None POSTOPERATIVE CONDITION: Stable INDICATIONS FOR SURGERY: 1. Blurred vision affecting patient's activities of daily living. DESCRIPTION OF PROCEDURE: The patient was seen in the preoperative area and properly identified. The correct operative eye was identified and marked. The patient received topical anesthetic, antibiotics, and topical dilating drops. The patient was then transferred to the operating room. The correct side was re-identified and a time-out was performed. The eye was prepped and draped in a sterile fashion. The eyelids were isolated with Tegaderm tape and the lids were held open with an adjustable speculum. A 1.0mm paracentesis incision was made. Omidria was then injected into the anterior chamber. Viscoelastic was then injected into the anterior chamber through the paracentesis. Using a 2.4mm sharp-tipped keratome, the anterior chamber was entered via a temporal clear cornea incision. A continuous curvilinear capsulorrhexis was created with Utrata forceps. Hydrodissection was performed with BSS on a blunt cannula until the nucleus was able to rotate freely. The crystalline lens was phacoemulsified and aspirated. Irrigation/aspiration was used to remove the cortical material Cohesive viscoelastic was placed into the capsular bag to deepen it. The implant was placed into the capsular bag and allowed to unfold. Placement was confirmed by visualizing the anterior capsulorrhexis. Irrigation/aspiration was used to remove the viscoelastic. The clear corneal incision was hydrated with BSS on a blunt cannula. The lens was well positioned. Intracameral antibiotic was injected into the anterior chamber. The incisions were then tested for leaks and found to be negative. The eye was then palpated for appropriate pressure and adjusted accordingly with BSS. The eyelid speculum was then carefully removed. A shield was placed over the eye. The patient tolerated the procedure well and was discharge to the recovery unit in a stable condition. TERA
== END 2020-10-10 11:50 | disposition home or self-care (01) ==
LOC: M SDC 08:28
PROVIDERS: ATTEND Ophthalmology
DX: H25.11 Age-related nuclear cataract, right eye (principal); I10 Essential (primary) hypertension; E78.5 Hyperlipidemia, unspecified; K21.9 Gastro-esophageal reflux disease without esophagitis; M81.0 Age-related osteoporosis without current pathological fracture; K57.92 Diverticulitis of intestine, part unspecified, without perforation or abscess without bleeding; Z79.899 Other long term (current) drug therapy
CPT/HCPCS: 66984; J1097; J2250; J3010; V2632

== ENCOUNTER → 2020-12-23 | Outpatient (REF) | payer MEDICARE, OTHER ==
[~2020-12-23] MED LIST changes: +ASPI-569 PO; -ASPI81TAEC PO; -BSS IRR 500ML/OMIDRIA 4ML IRR BAG (OR ONLY) As Ordered ONE; -CEFUROXIME 1MG/0.1ML INTRACAMERAL INJ As Ordered ONE; -DUOVISC (0.50ML VISCOAT/0.55ML PROVISC) OPHTH KIT As Ordered ONE; -MIDAZOLAM INJ 2MG/2ML VIAL (J2250 PER 1MG) As Ordered ONE; -OFLOXACIN 0.3 % (OCUFLOX) OPTH SOL 5ML OD ONE; -PEG1POW PO; -PHENYLEPHRINE 2.5% OPHTH SOL 2ML OD ONE; +POLY17PO18 PO; -POVIDONE-IODINE 5% OPHTH PREP SOL 30ML As Ordered ONE; -PROPARACAINE 0.5% OPHTH SOL 15ML OD ONE; -TROPICAMIDE 1% OPHTH SOLN 2ML OD ONE; -fentaNYL 100 MCG/2 ML INJECTION (J3010) As Ordered ONE
[2020-12-23 19:18] LABS: HEMATOCRIT 43.5 % (36.0-47.0)
== END ==
LOC: M LAB REF 16:37
PROVIDERS: ATTEND Nurse Practitioner Adult Health
DX: D50.9 Iron deficiency anemia, unspecified (principal)

== ENCOUNTER → 2021-01-15 | Outpatient (CLI) | payer MEDICARE, OTHER ==
[~2021-01-15] MED LIST changes: +CALTTAB6 PO; +PROL60SO SC; +VITA500T40 PO; +ZOLO100T PO
== END ==
LOC: M LABSMTC 10:43
PROVIDERS: ATTEND Anesthesiology
DX: Z01.812 Encounter for preprocedural laboratory examination (principal); Z20.822 Contact with and (suspected) exposure to COVID-19

== ENCOUNTER 2021-01-20 07:11 | Day surgery (SDC) | payer MEDICARE, OTHER ==
[~2021-01-20] VITALS: Ht 152.4 cm; Wt 66.7 kg
[~2021-01-20 07:11] MED LIST changes: +NS 1,000 ML IV ONE
[2021-01-20] MEDS ORDERED: propofoL 200 MG/20 ML VIAL As Ordered ONE (07:14)
[2021-01-20] MEDS ORDERED: LIDOCAINE 2% 100MG/5ML SDV (FOR ANES.) As Ordered ONE (07:14)
--- NOTE | 2021-01-20 08:52 | ROOR ---
Patient Name: Linette Kent Procedure Date: 01/20/2021 8:32 AM Date of : 1950 Age: 70 Room: [facility] Gender: Female Note Status: Finalized Procedure: Upper Endoscopy + Biopsies Indications: Personal history of malignant gastric neoplasm Providers: Cassius Pemberton MD Referring MD: Jailene Arshad NP Requesting Provider: Medicines: Monitored Anesthesia Care Complications: No immediate complications. Procedure: Pre-Anesthesia Assessment: - The heart rate, respiratory rate, oxygen saturations, blood pressure, adequacy of pulmonary ventilation, and response to care were monitored throughout the procedure. The Endoscope was introduced through the mouth, and advanced to the second part of duodenum. The upper GI endoscopy was accomplished without difficulty. The patient tolerated the procedure well. Findings: The Z-line was regular and was found 35 cm from the incisors. Multiple biopsies were obtained with cold forceps for evaluation to rule out Carter's Esophagus randomly at the gastroesophageal junction. Evidence of a previous surgical anastomosis was found in the gastric fundus. No other significant abnormalities were identified in a careful examination of the stomach. The exam of the duodenum was otherwise normal. Impression: - Z-line regular, 35 cm from the incisors. - A previous surgical anastomosis was found. - Multiple biopsies were obtained at the gastroesophageal junction. - The examination was otherwise normal. Recommendation: - Patient has a contact number available for emergencies. The signs and symptoms of potential delayed complications were discussed with the patient. Return to normal activities tomorrow. Written discharge instructions were provided to the patient. - High fiber diet. - Discharge patient to home. - Follow an antireflux regimen. - Continue present medications. - Await pathology results. - Telephone GI clinic for pathology results in 1 week. - Return to referring physician. - The findings and recommendations were discussed with the patient. Procedure Code(s): --- Professional --- 81241, Esophagogastroduodenoscopy, flexible, transoral; with biopsy, single or multiple Diagnosis Code(s): --- Professional --- Z98.0, Intestinal bypass and anastomosis status Z85.028, Personal history of other malignant neoplasm of stomach CPT copyright 2019 [employer]. All rights reserved. The codes documented in this report are preliminary and upon health physicist review may be revised to meet current compliance requirements. Cassius Pemberton MD Cassius Pemberton MD 01/20/2021 8:52:03 AM Electronically signed by Cassius Pemberton MD Number of Addenda: 0 Note Initiated On: 01/20/2021 8:32 AM Estimated Blood Loss: Estimated blood loss: none.
--- NOTE | 2021-01-20 09:06 | ROOR ---
Patient Name: Linette Kent Procedure Date: 01/20/2021 8:34 AM Date of : 1950 Age: 70 Room: [facility] Gender: Female Note Status: Finalized Procedure: Total Colonoscopy to Cecum Indications: High risk colon cancer surveillance: Personal history of colonic polyps Providers: Cassius Pemberton MD Referring MD: Jailene Arshad NP Requesting Provider: Medicines: Monitored Anesthesia Care Complications: No immediate complications. Procedure: Pre-Anesthesia Assessment: - The heart rate, respiratory rate, oxygen saturations, blood pressure, adequacy of pulmonary ventilation, and response to care were monitored throughout the procedure. The Colonoscope was introduced through the anus and advanced to the cecum, identified by appendiceal orifice and ileocecal valve. The colonoscopy was performed without difficulty. The patient tolerated the procedure well. The quality of the bowel preparation was excellent. Findings: The perianal and digital rectal examinations were normal. Non-bleeding internal hemorrhoids were found during retroflexion. The hemorrhoids were small and Grade I (internal hemorrhoids that do not prolapse). Multiple small and large-mouthed diverticula were found in the recto-sigmoid colon, sigmoid colon and descending colon. The exam was otherwise without abnormality on direct and retroflexion views. Impression: - Non-bleeding internal hemorrhoids. - Diverticulosis in the recto-sigmoid colon, in the sigmoid colon and in the descending colon. - The examination was otherwise normal on direct and retroflexion views. - No specimens collected. - The exam was otherwise normal to the cecum. Recommendation: - Patient has a contact number available for emergencies. The signs and symptoms of potential delayed complications were discussed with the patient. Return to normal activities tomorrow. Written discharge instructions were provided to the patient. - High fiber diet. - Discharge patient to home. - Continue present medications. - Repeat colonoscopy is not recommended due to current age (66 years or older) for surveillance. - Return to referring physician. - The findings and recommendations were discussed with the patient. Procedure Code(s): --- Professional --- G0105, Colorectal cancer screening; colonoscopy on individual at high risk Diagnosis Code(s): --- Professional --- Z86.010, Personal history of colonic polyps K64.0, First degree hemorrhoids K57.30, Diverticulosis of large intestine without perforation or abscess without bleeding CPT copyright 2019 [employer]. All rights reserved. The codes documented in this report are preliminary and upon marine fitter review may be revised to meet current compliance requirements. Cassius Pemberton MD Cassius Pemberton MD 01/20/2021 9:06:16 AM Electronically signed by Cassius Pemberton MD Number of Addenda: 0 Note Initiated On: 01/20/2021 8:34 AM Estimated Blood Loss: Estimated blood loss: none.
[2021-01-20 09:25] VITALS: BP 127/61
== END 2021-01-20 09:26 | disposition home or self-care (01) ==
LOC: M OPP 07:11
PROVIDERS: ATTEND Internal Medicine Gastroenterology
DX: Z12.11 Encounter for screening for malignant neoplasm of colon (principal); Z86.010 Personal history of colon polyps; K57.30 Diverticulosis of large intestine without perforation or abscess without bleeding; K64.0 First degree hemorrhoids; Z98.0 Intestinal bypass and anastomosis status; Z85.028 Personal history of other malignant neoplasm of stomach; Z79.82 Long term (current) use of aspirin; Z79.899 Other long term (current) drug therapy; Z88.0 Allergy status to penicillin
CPT/HCPCS: 43239; 88305; G0105

== ENCOUNTER → 2021-02-28 | Outpatient (CLI) | payer MEDICARE, OTHER ==
[~2021-02-28] MED LIST changes: -NS 1,000 ML IV ONE
[2021-02-28 17:33] LABS: CHOLESTEROL RISK RATIO 4.677 (<5)
== END ==
LOC: M PLALAB 14:00
PROVIDERS: ATTEND Nurse Practitioner
DX: E78.00 Pure hypercholesterolemia, unspecified (principal); E55.9 Vitamin D deficiency, unspecified; Z79.899 Other long term (current) drug therapy

== ENCOUNTER → 2021-03-10 | Outpatient (REF) | payer MEDICARE, OTHER | LOC: M PLALAB 15:02 | PROVIDERS: ATTEND Internal Medicine Endocrinology, Diabetes & Metabolism | DX: M81.0 Age-related osteoporosis without current pathological fracture (principal) ==

== ENCOUNTER → 2021-04-21 | Outpatient (CLI) | payer MEDICARE, OTHER ==
[2021-04-21 15:44] LABS: BASO # 0.1 10^3/uL (0.0-0.2); BASO % 0.9 % (0.0-1.0); EOS # 0.2 10^3/uL (0.0-0.5); EOS % 2.4 % (0.0-3.0); HEMOGLOBIN 13.7 g/dl (12.0-15.5); LYMPH # 2.8 10^3/uL (1.5-5.0); LYMPH % 34.6 % (24.0-44.0); MEAN CORPUSCULAR HGB CONC 31.1 g/dl (32.0-36.5); MEAN CORPUSCULAR VOLUME 99.5 fl (80.0-96.0); MONO # 0.5 10^3/uL (0.0-0.8); MONO % 6.5 % (2.0-8.0); NEUTROPHILS # 4.5 10^3/uL (1.5-8.5); NEUTROPHILS % 55.4 % (36.0-66.0); PLATELET COUNT, AUTOMATED 203 10^3/uL (150-450); RED BLOOD COUNT 4.42 10^6/uL (4.00-5.40)
[2021-04-21 16:21] LABS: ALBUMIN 3.8 GM/DL (3.2-5.2); BILIRUBIN,TOTAL 0.8 MG/DL (0.2-1.0); CALCIUM LEVEL 9.2 MG/DL (8.8-10.2); CREATININE FOR GFR 0.98 MG/DL (0.55-1.30); GLOMERULAR FILTRATION RATE 59.4 (>39); POTASSIUM SERUM 4.5 MEQ/L (3.5-5.1); TOTAL PROTEIN 7.5 GM/DL (6.4-8.2)
== END ==
LOC: M PLALAB 13:20
PROVIDERS: ATTEND Internal Medicine Hematology & Oncology
DX: C16.0 Malignant neoplasm of cardia (principal); D64.9 Anemia, unspecified

== ENCOUNTER → 2021-04-25 | Outpatient (CLI) | payer MEDICARE, OTHER ==
[~2021-04-25] MED LIST changes: +GASTROGRAFIN SOLUTION 30ML (Q9963) As Ordered ONE; +ISOVUE-370 76% 100ML VIAL As Ordered ONE
--- NOTE | 2021-04-25 14:17 | REP ---
INDICATION: HX GE JUNCTION TUMOR. COMPARISON: 04/03/2020 the latest prior TECHNIQUE: Standard helical technique after the intravenous administration of 100 cc Isovue 370 and oral bowel preparatory contrast administration. FINDINGS: The liver, spleen, pancreas, adrenal glands, and kidneys are unchanged. The abdominal aorta and para aortic regions are unchanged. There is no change in appearance of the gastroesophageal junction. There is no change in appearance of the bowel loops or the mesenteries. There is no free fluid or free air. There is no evidence of a mass or adenopathy. Significant spray artifact is again seen obscuring most of the pelvis and some of the upper abdomen status quo. IMPRESSION: No evidence of acute disease or significant change compared to the prior exam. <Electronically signed by Bruce Caruso > 04/25/21 [id number]
--- NOTE | 2021-04-25 14:27 | REP ---
INDICATION: HX GE JUNCTION TUMOR. COMPARISON: 04/03/2020, 03/24/2019. TECHNIQUE: Bolus 100 ml Isovue 370 scanning through the chest with coronal and sagittal reconstructions. FINDINGS: Curvilinear fibrotic changes are again noted in both lower lung zones left greater than right. There is no pleural effusion, pleural based mass or acute infiltrate. Curvilinear fibrotic changes are seen in the suprahilar region on the right, also stable. No acute infiltrate, new parenchymal change such is mass or nodule and no effusion. There is no pneumothorax or pneumomediastinum. The aorta has some calcifications at the arch and descending portion without aneurysm or dissection. The main, right and left pulmonary arteries in the mediastinum are without filling defects. There is no pathologic sized mediastinal or hilar adenopathy. There is some clips about the middle 1/3 of the thoracic esophagus and also a near the GE junction unchanged small hiatal hernia evident. This is stable. There is eventration/elevation right diaphragm also unchanged. Bone windows show thoracic spine, adjacent lower cervical and upper lumbar regions without acute finding. There is some spondylosis. Posterior elements intact. No compression deformity. The sternum, manubrium and medial clavicles were all intact. There is advanced osteoarthritic change of both shoulders with marked narrowing of the joint space, sclerosis of glenoid and humeral head articular regions and subchondral cysts at those joints. The visualized ribs unremarkable. Please see today's CT abdomen pelvis for discussion of findings in the upper abdomen. IMPRESSION: 1. No CT evidence of intrathoracic metastatic disease. There is no lung nodules or masses and bilateral of pleuroparenchymal scarring again seen and stable. 2. Postoperative changes with surgical clips in the middle 1/3 of the mediastinum about the esophagus and also at the GE junction region. 3. Chest wall, bones, vascular structures and heart all grossly unremarkable. No new or acute finding. <Electronically signed by Gerald Woody > 04/25/21 [id number]
== END ==
LOC: M RAD 11:34
PROVIDERS: ATTEND Internal Medicine Hematology & Oncology
DX: C16.0 Malignant neoplasm of cardia (principal); D64.9 Anemia, unspecified
CPT/HCPCS: 71260; 74177; Q9963; Q9967

== ENCOUNTER → 2021-05-28 | Outpatient (REF) | payer MEDICARE, OTHER ==
[~2021-05-28] MED LIST changes: -GASTROGRAFIN SOLUTION 30ML (Q9963) As Ordered ONE; -ISOVUE-370 76% 100ML VIAL As Ordered ONE; -KLOR10TA76 PO; +POTA-136 PO
== END ==
LOC: M LAB REF 12:55
PROVIDERS: ATTEND Internal Medicine Nephrology
DX: E83.42 Hypomagnesemia (principal)

== ENCOUNTER → 2021-09-10 | Outpatient (CLI) | payer MEDICARE, OTHER ==
[2021-09-10 13:53] LABS: CALCIUM LEVEL 9.6 MG/DL (8.8-10.2)
[2021-09-10 14:00] LABS: TOTAL 25(OH) VITAMIN D 29.2 NG/ML (30.0-100.0)
== END ==
LOC: M PLALAB 10:20
PROVIDERS: ATTEND Internal Medicine Endocrinology, Diabetes & Metabolism
DX: M81.0 Age-related osteoporosis without current pathological fracture (principal)

== ENCOUNTER → 2021-10-30 | Outpatient (CLI) | payer MEDICARE, OTHER ==
[~2021-10-30] MED LIST changes: -OMEP-221 PO; +OMEP40CA5 PO
== END ==
LOC: M WHC 08:39
PROVIDERS: ATTEND Nurse Practitioner Adult Health
DX: Z12.31 Encounter for screening mammogram for malignant neoplasm of breast (principal); Z80.3 Family history of malignant neoplasm of breast; Z78.0 Asymptomatic menopausal state

== ENCOUNTER → 2022-01-07 | Outpatient (CLI) | payer MEDICARE, OTHER ==
[~2022-01-07] MED LIST changes: -D31000TA2 PO; +VITA100093 PO
== END ==
LOC: M PLAIMG 11:23
PROVIDERS: ATTEND Internal Medicine Nephrology
DX: Z87.442 Personal history of urinary calculi (principal)

== ENCOUNTER → 2022-03-13 | Outpatient (CLI) | payer MEDICARE, OTHER ==
[2022-03-13 13:42] LABS: CALCIUM LEVEL 9.2 MG/DL (8.8-10.2)
[2022-03-13 13:53] LABS: TOTAL 25(OH) VITAMIN D 77.6 NG/ML (30.0-100.0)
== END ==
LOC: M PLALAB 11:03
PROVIDERS: ATTEND Internal Medicine Endocrinology, Diabetes & Metabolism
DX: M81.0 Age-related osteoporosis without current pathological fracture (principal)

== ENCOUNTER → 2022-07-21 | Outpatient (CLI) | payer MEDICARE, OTHER | LOC: M WHC 09:04 | PROVIDERS: ATTEND Internal Medicine Endocrinology, Diabetes & Metabolism | DX: M85.88 Other specified disorders of bone density and structure, other site (principal); M85.851 Other specified disorders of bone density and structure, right thigh; M85.852 Other specified disorders of bone density and structure, left thigh ==

== ENCOUNTER → 2022-09-17 | Outpatient (CLI) | payer MEDICARE, OTHER | LOC: M PLALAB 11:10 | PROVIDERS: ATTEND Nurse Practitioner Family | DX: M81.0 Age-related osteoporosis without current pathological fracture (principal) ==

== ENCOUNTER → 2022-10-06 | Outpatient (REF) | payer MEDICARE, OTHER | LOC: M LAB REF 12:37 | PROVIDERS: ATTEND Nurse Practitioner Adult Health | DX: R10.13 Epigastric pain (principal) ==

== ENCOUNTER → 2022-10-07 | Outpatient (CLI) | payer MEDICARE, OTHER ==
[~2022-10-07] MED LIST changes: +GASTROGRAFIN SOLUTION 30ML As Ordered ONE; +ISOVUE-370 76% 100ML VIAL As Ordered ONE
== END ==
LOC: M RAD 07:53
PROVIDERS: ATTEND Nurse Practitioner Adult Health
DX: N13.8 Other obstructive and reflux uropathy (principal); N13.30 Unspecified hydronephrosis; N20.1 Calculus of ureter
CPT/HCPCS: 74178; Q9963; Q9967

== ENCOUNTER → 2022-10-13 | Outpatient (CLI) | payer MEDICARE, OTHER ==
[~2022-10-13] MED LIST changes: -GASTROGRAFIN SOLUTION 30ML As Ordered ONE; -ISOVUE-370 76% 100ML VIAL As Ordered ONE
== END ==
LOC: M RAD 07:45
PROVIDERS: ATTEND Nurse Practitioner Adult Health
DX: N13.30 Unspecified hydronephrosis (principal)

== ENCOUNTER → 2022-10-30 | Outpatient (CLI) | payer MEDICARE, OTHER | LOC: M WHC 09:05 | PROVIDERS: ATTEND Nurse Practitioner Adult Health | DX: Z12.31 Encounter for screening mammogram for malignant neoplasm of breast (principal) ==

== ENCOUNTER → 2022-11-20 | Outpatient (CLI) | payer MEDICARE, OTHER | LOC: M LABSMTC 07:56 | PROVIDERS: ATTEND Anesthesiology | DX: Z01.812 Encounter for preprocedural laboratory examination (principal); Z20.822 Contact with and (suspected) exposure to COVID-19 ==

== ENCOUNTER → 2022-11-23 | Outpatient (CLI) | payer MEDICARE, OTHER ==
[~2022-11-23] MED LIST changes: +PEPP90CA PO
[2022-11-23 15:42] LABS: CREATININE FOR GFR 1.09 MG/DL (0.55-1.30); GLOMERULAR FILTRATION RATE 52.4 (>39)
== END ==
LOC: M PLALAB 13:12
PROVIDERS: ATTEND Internal Medicine Hematology & Oncology
DX: C16.0 Malignant neoplasm of cardia (principal); D64.9 Anemia, unspecified

== ENCOUNTER 2022-11-25 09:19 | Day surgery (SDC) | payer MEDICARE, OTHER ==
[~2022-11-25] VITALS: Ht 152.4 cm; Wt 65.3 kg
[~2022-11-25 09:19] MED LIST changes: +NS 1,000 ML IV ONE
[2022-11-25] MEDS ORDERED: propofoL 200 MG/20 ML VIAL As Ordered ONE (11:01)
[2022-11-25] MEDS ORDERED: LIDOCAINE 2% 100MG/5ML SDV (FOR ANES.) As Ordered ONE (11:01)
[2022-11-25 11:31] VITALS: BP 122/70
== END 2022-11-25 11:43 | disposition home or self-care (01) ==
LOC: M OPP 09:19
PROVIDERS: ATTEND Internal Medicine Gastroenterology
DX: K29.70 Gastritis, unspecified, without bleeding (principal); K22.89 Other specified disease of esophagus; Z85.028 Personal history of other malignant neoplasm of stomach; I25.2 Old myocardial infarction; E78.00 Pure hypercholesterolemia, unspecified; Z79.02 Long term (current) use of antithrombotics/antiplatelets; Z79.82 Long term (current) use of aspirin; Z79.899 Other long term (current) drug therapy; Z86.19 Personal history of other infectious and parasitic diseases; Z87.42 Personal history of other diseases of the female genital tract; Z83.71 Family history of colonic polyps

== ENCOUNTER → 2022-11-26 | Outpatient (CLI) | payer MEDICARE, OTHER ==
[~2022-11-26] MED LIST changes: -NS 1,000 ML IV ONE; +PROHANCE 279.3MG/ML 5ML VIAL ONE
== END ==
LOC: M PLAIMG 11:55
PROVIDERS: ATTEND Internal Medicine Hematology & Oncology
DX: C16.0 Malignant neoplasm of cardia (principal); D64.9 Anemia, unspecified; E11.9 Type 2 diabetes mellitus without complications; I10 Essential (primary) hypertension; K76.89 Other specified diseases of liver; K76.0 Fatty (change of) liver, not elsewhere classified; N13.30 Unspecified hydronephrosis; N28.1 Cyst of kidney, acquired; K57.10 Diverticulosis of small intestine without perforation or abscess without bleeding; K44.9 Diaphragmatic hernia without obstruction or gangrene
CPT/HCPCS: 74183; A9576

== ENCOUNTER → 2022-12-01 | Outpatient (CLI) | payer MEDICARE, OTHER ==
[~2022-12-01] MED LIST changes: -PROHANCE 279.3MG/ML 5ML VIAL ONE
[2022-12-01 16:15] LABS: BASO # 0.1 10^3/uL (0.0-0.2); BASO % 0.9 % (0.0-1.0); EOS # 0.1 10^3/uL (0.0-0.5); EOS % 1.8 % (0.0-3.0); HEMATOCRIT 41.2 % (36.0-47.0); HEMOGLOBIN 12.7 g/dl (12.0-15.5); LYMPH # 2.2 10^3/uL (1.5-5.0); LYMPH % 33.7 % (24.0-44.0); MEAN CORPUSCULAR HEMOGLOBIN 30.3 pg (27.0-33.0); MEAN CORPUSCULAR HGB CONC 30.8 g/dl (32.0-36.5); MEAN CORPUSCULAR VOLUME 98.3 fl (80.0-96.0); MONO # 0.4 10^3/uL (0.0-0.8); MONO % 6.3 % (2.0-8.0); NEUTROPHILS # 3.7 10^3/uL (1.5-8.5); NEUTROPHILS % 56.8 % (36.0-66.0); PLATELET COUNT, AUTOMATED 222 10^3/uL (150-450); RED BLOOD COUNT 4.19 10^6/uL (4.00-5.40); WHITE BLOOD COUNT 6.5 10^3/uL (4.0-10.0)
[2022-12-01 16:42] LABS: CALCIUM LEVEL 8.3 MG/DL (8.3-10.6); CREATININE FOR GFR 0.99 MG/DL (0.55-1.30); GLOMERULAR FILTRATION RATE 58.5 (>39); POTASSIUM SERUM 4.4 MMOL/L (3.5-5.1)
[2022-12-01 19:09] LABS: AMORPHOUS SEDIMENT SMALL (NEGATIVE); APPEARANCE, URINE CLOUDY (CLEAR); BACTERIA, URINE AUTO 2+ (NEGATIVE); BILIRUBIN, URINE AUTO NEGATIVE (NEGATIVE); BLOOD, URINE BLOOD NEGATIVE (NEGATIVE); COLOR, URINE AMBER (YELLOW); GLUCOSE, URINE (UA) AUTO NEGATIVE (NEGATIVE); KETONE, URINE AUTO TRACE mg/dL (NEGATIVE); LEUKOCYTE ESTERASE, URINE AUTO 3+ (NEGATIVE); MUCUS, URINE SMALL (NEGATIVE); NITRITE, URINE AUTO POSITIVE (NEGATIVE); PROTEIN, URINE AUTO 1+ mg/dL (NEGATIVE); RBC, URINE AUTO 2 /HPF (0-3); SQUAMOUS EPITHELIAL CELL UR AU 9 /HPF (0-6); WBC, URINE AUTO 112 /HPF (0-3)
== END ==
LOC: M PLALAB 13:58
PROVIDERS: ATTEND Physician Assistant
DX: Z01.818 Encounter for other preprocedural examination (principal)

== ENCOUNTER → 2022-12-07 | Outpatient (CLI) | payer MEDICARE, OTHER | LOC: M LABSMTC 08:30 | PROVIDERS: ATTEND Anesthesiology | DX: Z01.812 Encounter for preprocedural laboratory examination (principal); Z20.822 Contact with and (suspected) exposure to COVID-19 ==

== ENCOUNTER → 2022-12-08 | Outpatient (REF) | payer MEDICARE, OTHER ==
[2022-12-08 17:14] LABS: APPEARANCE, URINE CLEAR (CLEAR); BACTERIA, URINE AUTO NEGATIVE (NEGATIVE); BILIRUBIN, URINE AUTO NEGATIVE (NEGATIVE); BLOOD, URINE BLOOD NEGATIVE (NEGATIVE); COLOR, URINE YELLOW (YELLOW); GLUCOSE, URINE (UA) AUTO NEGATIVE (NEGATIVE); KETONE, URINE AUTO TRACE mg/dL (NEGATIVE); LEUKOCYTE ESTERASE, URINE AUTO TRACE (NEGATIVE); MUCUS, URINE SMALL (NEGATIVE); NITRITE, URINE AUTO NEGATIVE (NEGATIVE); PROTEIN, URINE AUTO NEGATIVE (NEGATIVE); RBC, URINE AUTO 1 /HPF (0-3); SPECIFIC GRAVITY URINE AUTO 1.021 (1.002-1.035); SQUAMOUS EPITHELIAL CELL UR AU 0 /HPF (0-6); UROBILINOGEN, URINE AUTO 0.2 mg/dL (0.0-2.0); WBC, URINE AUTO 2 /HPF (0-3)
== END ==
LOC: M LAB REF 16:29
PROVIDERS: ATTEND Internal Medicine
DX: Z01.818 Encounter for other preprocedural examination (principal); Z79.899 Other long term (current) drug therapy

== ENCOUNTER 2022-12-11 05:59 | Day surgery (SDC) | payer MEDICARE, OTHER ==
[~2022-12-11] VITALS: Ht 152.4 cm; Wt 65.3 kg
[2022-12-11] MEDS ORDERED: LR 1,000 ML IV SCH ×2 (07:15→08:20)
[2022-12-11] MEDS ORDERED: ISOVUE-300 61% 100ML VIAL As Ordered ONE (07:18)
[2022-12-11] MEDS ORDERED: ONDANSETRON 4MG 2ML VIAL As Ordered ONE (07:18)
[2022-12-11] MEDS ORDERED: LIDOCAINE 2% 100MG/5ML SDV (FOR ANES.) As Ordered ONE (07:18)
[2022-12-11] MEDS ORDERED: KETOROLAC 60MG 2ML VIAL As Ordered ONE (07:18)
[2022-12-11] MEDS ORDERED: propofoL 200 MG/20 ML VIAL As Ordered ONE (07:18)
[2022-12-11] MEDS ORDERED: fentaNYL 100 MCG/2 ML INJECTION As Ordered ONE (07:19)
[2022-12-11] MEDS ORDERED: LevoFLOXacin 500MG/100ML IV BAG As Ordered ONE (07:39)
[2022-12-11] MEDS ORDERED: LevoFLOXacin IV 500 MG in IV 1 EA IV ONE (07:45)
[2022-12-11] MEDS ORDERED: ONDANSETRON 4MG 2ML VIAL IV PRN (08:20)
[2022-12-11] MEDS ORDERED: fentaNYL 100 MCG/2 ML INJECTION IV PRN (08:20)
[2022-12-11] MEDS ORDERED: oxyCODONE 5MG TAB PO PRN (08:20)
[2022-12-11] MEDS ORDERED: ePHEDrine SULFATE 25 MG/5 ML(5MG/ML) SYRINGE As Ordered ONE (08:34)
[2022-12-11] MEDS ORDERED: PHENYLephrine 500MCG 5ML (100MCG/ML) SYRINGE As Ordered ONE (08:34)
[2022-12-11] MEDS ORDERED: PERCOCET 5MG/325MG TAB PO PRN (08:45)
[2022-12-11] MEDS ORDERED: METOCLOPRAMIDE INJ 10MG/2ML VIAL IV PRN (09:15)
[2022-12-11 10:21] VITALS: BP 128/60
== END 2022-12-11 10:25 | disposition home or self-care (01) ==
LOC: M SDC 05:59
PROVIDERS: ATTEND Urology
DX: N20.1 Calculus of ureter (principal); K21.9 Gastro-esophageal reflux disease without esophagitis; Z85.028 Personal history of other malignant neoplasm of stomach; M19.90 Unspecified osteoarthritis, unspecified site; M54.2 Cervicalgia; M81.0 Age-related osteoporosis without current pathological fracture; F41.9 Anxiety disorder, unspecified; Z87.442 Personal history of urinary calculi; Z88.0 Allergy status to penicillin; Z79.899 Other long term (current) drug therapy
CPT/HCPCS: 52332; 76000; C1769; C1894; C2617; J1100; J1885; J1956; J2370; J2405; J2765; J3010; Q9967

== ENCOUNTER → 2022-12-23 | Outpatient (REF) | payer MEDICARE, OTHER | LOC: M LAB REF 12:00 | PROVIDERS: ATTEND Nurse Practitioner Adult Health | DX: Z85.028 Personal history of other malignant neoplasm of stomach (principal) ==

== ENCOUNTER → 2023-04-02 | Outpatient (CLI) | payer MEDICARE, OTHER ==
[~2023-04-02] MED LIST changes: +POTA-298 PO; -POTA1TAB14 PO
[2023-04-02 15:34] LABS: CALCIUM LEVEL 8.9 MG/DL (8.3-10.6)
[2023-04-02 15:38] LABS: TOTAL 25(OH) VITAMIN D 51.3 NG/ML (20.0-100.0)
== END ==
LOC: M PLALAB 11:37
PROVIDERS: ATTEND Internal Medicine Endocrinology, Diabetes & Metabolism
DX: M81.0 Age-related osteoporosis without current pathological fracture (principal); E55.9 Vitamin D deficiency, unspecified

== ENCOUNTER → 2023-05-06 | Outpatient (REF) | payer MEDICARE, OTHER | LOC: M LAB REF 16:24 | PROVIDERS: ATTEND Nurse Practitioner Adult Health | DX: R25.2 Cramp and spasm (principal) ==

== ENCOUNTER → 2023-08-24 | Outpatient (CLI) | payer MEDICARE, OTHER | LOC: M PLAIMG 09:12 | PROVIDERS: ATTEND Urology | DX: N20.0 Calculus of kidney (principal) ==

== ENCOUNTER → 2023-09-24 | Outpatient (CLI) | payer MEDICARE, OTHER | LOC: M PLALAB 13:31 | PROVIDERS: ATTEND Internal Medicine Endocrinology, Diabetes & Metabolism | DX: E55.9 Vitamin D deficiency, unspecified (principal) ==

== ENCOUNTER → 2023-09-24 | Outpatient (CLI) | payer MEDICARE, OTHER ==
[2023-09-24 16:29] LABS: BLOOD UREA NITROGEN 17 MG/DL (9-23); CREATININE FOR GFR 0.88 MG/DL (0.55-1.30); GLOMERULAR FILTRATION RATE > 60.0 (>39)
== END ==
LOC: M PLALAB 13:34
PROVIDERS: ATTEND Pain Medicine Interventional Pain Medicine
DX: M96.1 Postlaminectomy syndrome, not elsewhere classified (principal); E55.9 Vitamin D deficiency, unspecified

== ENCOUNTER → 2023-10-27 | Outpatient (CLI) | payer MEDICARE, OTHER ==
[~2023-10-27] MED LIST changes: +PROHANCE 279.3MG/ML 15ML VIAL ONE
== END ==
LOC: M PLAIMG 09:59
PROVIDERS: ATTEND Internal Medicine Gastroenterology
DX: K86.89 Other specified diseases of pancreas (principal); R93.5 Abnormal findings on diagnostic imaging of other abdominal regions, including retroperitoneum
CPT/HCPCS: 74183; A9576

== ENCOUNTER → 2023-11-01 | Outpatient (CLI) | payer MEDICARE, OTHER ==
[~2023-11-01] MED LIST changes: -PROHANCE 279.3MG/ML 15ML VIAL ONE
== END ==
LOC: M WHC 08:54
PROVIDERS: ATTEND Nurse Practitioner Adult Health
DX: Z12.31 Encounter for screening mammogram for malignant neoplasm of breast (principal)

== ENCOUNTER → 2023-11-04 | Outpatient (CLI) | payer MEDICARE, OTHER ==
[~2023-11-04] MED LIST changes: +PROHANCE 279.3MG/ML 15ML VIAL ONE
== END ==
LOC: M PLAIMG 12:45
PROVIDERS: ATTEND Pain Medicine Interventional Pain Medicine
DX: M96.1 Postlaminectomy syndrome, not elsewhere classified (principal); M51.36 Other intervertebral disc degeneration, lumbar region
CPT/HCPCS: 72158; 72197; A9576

== ENCOUNTER → 2024-04-11 | Outpatient (CLI) | payer MEDICARE, OTHER ==
[~2024-04-11] MED LIST changes: +ONDA-282 PO; -ONDA4TAB6 PO; -PROHANCE 279.3MG/ML 15ML VIAL ONE
[2024-04-11 16:28] LABS: CALCIUM LEVEL 10.3 MG/DL (8.3-10.6)
[2024-04-11 16:33] LABS: TOTAL 25(OH) VITAMIN D 34.9 NG/ML (20.0-100.0)
== END ==
LOC: M PLALAB 14:17
PROVIDERS: ATTEND Internal Medicine Endocrinology, Diabetes & Metabolism
DX: M81.0 Age-related osteoporosis without current pathological fracture (principal); E55.9 Vitamin D deficiency, unspecified

== ENCOUNTER → 2024-12-04 | Outpatient (CLI) | payer MEDICARE, OTHER ==
[~2024-12-04] MED LIST changes: -ALIG4CAP PO; +ALIG4CAP3 PO
== END ==
LOC: M WHC 08:25
PROVIDERS: ATTEND Nurse Practitioner Adult Health
DX: Z12.31 Encounter for screening mammogram for malignant neoplasm of breast (principal); Z13.820 Encounter for screening for osteoporosis; M85.851 Other specified disorders of bone density and structure, right thigh; M81.8 Other osteoporosis without current pathological fracture

== ENCOUNTER → 2024-12-04 | Outpatient (CLI) | payer MEDICARE, OTHER ==
[~2024-12-04] MED LIST changes: +DENO60SY2 SC; -PROL60SO SC
== END ==
LOC: M PLALAB 09:51
PROVIDERS: ATTEND Nurse Practitioner Family
DX: M81.0 Age-related osteoporosis without current pathological fracture (principal)

== ENCOUNTER 2025-07-18 06:38 | Day surgery (SDC) | payer MEDICARE, OTHER ==
[~2025-07-18] VITALS: Ht 152.4 cm; Wt 67.1 kg
[~2025-07-18 06:38] MED LIST changes: +ASPI81TA26 PO; +LOSA25TA13 PO; +MORP-138 PO; -MORP15TASA PO; +POTA540T5 PO; -VITA500T17 PO; +VITA500T8 PO
[2025-07-18] MEDS ORDERED: LIDOCAINE 2% 100 MG/5 ML SDV (FOR ANES.) As Ordered ONE (07:31)
[2025-07-18] MEDS ORDERED: ONDANSETRON 4MG 2ML VIAL As Ordered ONE (07:37)
[2025-07-18] MEDS ORDERED: PHENYLephrine 500MCG 5ML (100MCG/ML) SYRINGE As Ordered ONE (07:42)
[2025-07-18 08:15] VITALS: BP 132/63; TEMP 97.7; O2SAT 98
== END 2025-07-18 08:22 | disposition home or self-care (01) ==
LOC: M OPP 06:38
PROVIDERS: ATTEND Internal Medicine Gastroenterology
DX: K44.9 Diaphragmatic hernia without obstruction or gangrene (principal); R12 Heartburn; Z86.73 Personal history of transient ischemic attack (TIA), and cerebral infarction without residual deficits; Z88.0 Allergy status to penicillin; Z79.82 Long term (current) use of aspirin; Z79.899 Other long term (current) drug therapy
CPT/HCPCS: 43239; 88305; J2371; J2405